=== PATIENT | female | born 1960 | race Caucasian/White ===

== ENCOUNTER → 2017-12-10 14:05 | Outpatient (CLI) | payer MEDICARE, SELFPAY ==
[2016-01-04 12:56] VITALS: BMI 24.3
[2017-12-10 15:45] LABS: Absolute Lymphocyte Count 0.84 X10^3/ul (0.83-4.51); Basophil# 0.03 X10^3/uL; Basophil% 0.7 % (0-1); Eosinophil# 0.27 X10^3/uL; Eosinophils% 6.3 % (0-5); Hematocrit 38.4 % (37-47); Lymphocyte # 0.84 X10^3/ul (4.0); Lymphocyte % 19.5 % (19-41); Mean Corp Hgb Conc 33.9 g/gl (32-36); Mean Corpuscular Hgb 30.8 pg (27.0-32.0); Mean Platelet Vol. 9.6 fl (6.2-12.0); Monocyte% 4.6 % (0-10); Neutrophil # 2.97 X10^3/uL (2.7-7.7); Neutrophil % 68.9 % (47-70); Platelet Count 260 K/mm3 (150-450); RBC Distribution Width CV 12.5 % (11.6-14.6); RBC Distribution Width SD 41.6 fl (35.1-43.9); Red Blood Count 4.22 M/mm3 (4.2-5.4); White Blood Count 4.3 K/mm3 (4.4-11.0)
[2017-12-10 15:52] LABS: POSITIVE COUNT NO; POSITIVE DIFFERENTIAL NO; POSITIVE MORPHOLOGY NO
[2017-12-10 16:05] LABS: ALB/GLOB Ratio 1.5 RATIO (0.9-2.4); AST(SGOT) 20 U/L (15-37); Alanine Aminotransfer ALT/SGPT 21 U/L (13-56); Albumin, Serum 4.3 g/dL (3.2-5.0); Alkaline Phosphatase 86 U/L (45-117); Anion Gap 8 (5-15); BUN 8 mg/dL (7-18); BUN/Creat Ratio 8.9 RATIO (10-20); Chloride 99 mmol/L (98-107); EST Glomerular Filtration Rate 69 mL/min (>60); Est Glom Filt Rate - Afr Amer 83 mL/min (>60); Globulin 2.9 g/dL (2.2-4.2); Glucose 96 mg/dL (74-106); Potassium 3.7 mmol/L (3.5-5.1); Protein, Total 7.2 g/dL (6.4-8.2); Sodium Level 134 mmol/L (136-145); Thyroid Stim Hormone (TSH) 1.65 uIU/mL (0.358-3.74)
== END ==
PROVIDERS: Family Provider Family Medicine Geriatric Medicine; PCP Family Medicine Geriatric Medicine; Visit Provider Family Medicine Geriatric Medicine
DX: I10 Essential (primary) hypertension (principal)
CPT/HCPCS: 36415; 80053; 84443; 85025

== ENCOUNTER → 2018-02-10 12:26 | Outpatient (CLI) | payer MEDICARE, MEDICAID, SELFPAY ==
[2016-01-04 12:56] VITALS: BMI 24.3
--- NOTE | 2018-02-10 12:31 | MRI_ITS ---
STUDY: MRI RIGHT HAND REASON FOR EXAM: Female, 57 years old. Mass, Soft Tissue- lump palm of hand base of thumb, fall 8 months ago landed on hand, f/u US TECHNIQUE: Standardized fat and water weighted pulse sequences were obtained in all 3 orthogonal planes with and without 8 mL of Gadavist intravenous contrast. COMPARISON: Ultrasound August 02, 2017 report only. FINDINGS: FIRST DIGIT: There is mild degenerative arthrosis of the metacarpophalangeal joint with osteophytes and subchondral cysts.. Normal interphalangeal joint. Normal proximal, and distal phalanges. Normal flexor and extensor tendons. There is no soft tissue abnormality. SECOND DIGIT: There is an erosion of the metacarpal head. Normal metacarpophalangeal joint. Normal proximal and distal interphalangeal joints. Normal proximal, middle and distal phalanges. Normal flexor and extensor tendons. There is no soft tissue abnormality. THIRD DIGIT: There are cysts/erosions of the metacarpal head. Normal metacarpophalangeal joint. Normal proximal and distal interphalangeal joints. Normal proximal, middle and distal phalanges. Normal flexor and extensor tendons. There is no soft tissue abnormality. FOURTH DIGIT: Normal visualized fourth metacarpus. Normal metacarpophalangeal joint. Normal proximal and distal interphalangeal joints. Normal middle and distal phalanges. Normal flexor and extensor tendons. There is no soft tissue abnormality. FIFTH DIGIT: Normal visualized fifth metacarpus. There is a tiny subchondral cyst and bone marrow edema of the base of the proximal phalanx. Normal proximal and distal interphalangeal joints. Normal proximal, middle and distal phalanges. Normal flexor and extensor tendons. There is no soft tissue abnormality. There is soft tissue edema of the thenar muscle. There is minimal adjacent bone marrow edema of the base of the first metacarpal. No mass or fluid collection is seen. There are multiple cysts, erosions or prominent vessels of the volar aspect of the scaphoid and capitate. There is bone marrow edema of the scaphoid. No definite fracture line or displaced fracture is seen. MRI/Upper Ext No Joint W/WO Cont IMPRESSION: There is soft tissue edema of the thenar muscle, nonspecific. No mass is demonstrated. There are multiple cysts/erosions. Consider an inflammatory arthritis such as rheumatoid arthritis. There is bone marrow edema of the scaphoid suggesting a bony contusion. Electronically Signed: Gladys Michel MD at 14:08 EDT , Service support ,
== END ==
PROVIDERS: Family Provider Family Medicine Geriatric Medicine; PCP Family Medicine Geriatric Medicine; Visit Provider Surgery
DX: R22.31 Localized swelling, mass and lump, right upper limb (principal)
CPT/HCPCS: 73220; A9585

== ENCOUNTER → 2018-03-11 13:40 | Outpatient (CLI) | payer MEDICARE, MEDICAID, SELFPAY ==
[2016-01-04 12:56] VITALS: BMI 24.3
[2018-03-11 17:50] LABS: ALB/GLOB Ratio 1.5 RATIO (0.9-2.4); AST(SGOT) 17 U/L (15-37); Alanine Aminotransfer ALT/SGPT 25 U/L (13-56); Albumin, Serum 4.4 g/dL (3.2-5.0); Alkaline Phosphatase 75 U/L (45-117); Anion Gap 7 (5-15); BUN 9 mg/dL (7-18); BUN/Creat Ratio 11.6 RATIO (10-20); Calcium,Total 9.1 mg/dL (8.5-10.1); Chloride 98 mmol/L (98-107); Creatinine, Serum 0.78 mg/dL (0.55-1.02); EST Glomerular Filtration Rate 81 mL/min (>60); Est Glom Filt Rate - Afr Amer 98 mL/min (>60); Glucose 75 mg/dL (74-106); Potassium 4.3 mmol/L (3.5-5.1); Protein, Total 7.4 g/dL (6.4-8.2); Sodium Level 133 mmol/L (136-145)
[2018-03-11 17:55] LABS: Absolute Lymphocyte Count 0.91 X10^3/ul (0.83-4.51); Absolute Neutrophil Count 3.2 X10^3/uL (2.0-7.7); Basophil# 0.03 X10^3/uL; Basophil% 0.7 % (0-1); Eosinophils% 4.3 % (0-5); Hematocrit 38.7 % (37-47); Hemoglobin 12.9 g/dl (12.0-15.0); Lymphocyte # 0.91 X10^3/ul (4.0); Lymphocyte % 19.8 % (19-41); Mean Corp Hgb Conc 33.3 g/gl (32-36); Mean Corpuscular Hgb 30.4 pg (27.0-32.0); Mean Corpuscular Volume 91.3 fL (81-99); Mean Platelet Vol. 9.5 fl (6.2-12.0); Monocyte# 0.29 X10^3/uL; Monocyte% 6.3 % (0-10); Neutrophil # 3.16 X10^3/uL (2.7-7.7); Neutrophil % 68.7 % (47-70); Platelet Count 258 K/mm3 (150-450); RBC Distribution Width CV 12.6 % (11.6-14.6); RBC Distribution Width SD 42.1 fl (35.1-43.9); Red Blood Count 4.24 M/mm3 (4.2-5.4); White Blood Count 4.6 K/mm3 (4.4-11.0)
[2018-03-11 18:15] LABS: POSITIVE COUNT NO; POSITIVE DIFFERENTIAL NO; POSITIVE MORPHOLOGY NO
[2018-03-13 15:43] LABS: Hep C Antibodies <0.1 s/co ratio (0.0-0.9)
== END ==
PROVIDERS: Family Provider Family Medicine Geriatric Medicine; PCP Family Medicine Geriatric Medicine; Visit Provider Family Medicine Geriatric Medicine
DX: I10 Essential (primary) hypertension (principal); Z13.89 Encounter for screening for other disorder
CPT/HCPCS: 36415; 80053; 84443; 85025; 86803

== ENCOUNTER → 2018-09-09 13:58 | Outpatient (CLI) | payer MEDICARE, MEDICAID, SELFPAY ==
[2016-01-04 12:56] VITALS: BMI 24.3
[2018-09-09 17:26] LABS: Absolute Lymphocyte Count 0.66 X10^3/ul (0.83-4.51); Absolute Neutrophil Count 3.1 X10^3/uL (2.0-7.7); Basophil# 0.06 X10^3/uL; Basophil% 1.4 % (0-1); Eosinophil# 0.14 X10^3/uL; Eosinophils% 3.3 % (0-5); Hematocrit 37.3 % (37-47); Hemoglobin 12.5 g/dl (12.0-15.0); Lymphocyte # 0.66 X10^3/ul (4.0); Lymphocyte % 15.8 % (19-41); Mean Corp Hgb Conc 33.5 g/gl (32-36); Mean Corpuscular Hgb 30.9 pg (27.0-32.0); Mean Corpuscular Volume 92.3 fL (81-99); Mean Platelet Vol. 9.6 fl (6.2-12.0); Monocyte# 0.26 X10^3/uL; Monocyte% 6.2 % (0-10); Neutrophil # 3.06 X10^3/uL (2.7-7.7); Neutrophil % 73.1 % (47-70); Platelet Count 279 K/mm3 (150-450); RBC Distribution Width CV 12.6 % (11.6-14.6); RBC Distribution Width SD 41.7 fl (35.1-43.9); Red Blood Count 4.04 M/mm3 (4.2-5.4); White Blood Count 4.2 K/mm3 (4.4-11.0)
[2018-09-09 17:32] LABS: POSITIVE COUNT NO; POSITIVE DIFFERENTIAL NO; POSITIVE MORPHOLOGY NO
[2018-09-09 17:49] LABS: ALB/GLOB Ratio 1.3 RATIO (0.9-2.4); AST(SGOT) 20 U/L (15-37); Alanine Aminotransfer ALT/SGPT 25 U/L (13-56); Alkaline Phosphatase 83 U/L (45-117); Anion Gap 12 (5-15); BUN 14 mg/dL (7-18); BUN/Creat Ratio 17.5 RATIO (10-20); Chloride 98 mmol/L (98-107); EST Glomerular Filtration Rate 78 mL/min (>60); Est Glom Filt Rate - Afr Amer 95 mL/min (>60); Glucose 73 mg/dL (74-106); Potassium 4.1 mmol/L (3.5-5.1); Sodium Level 135 mmol/L (136-145); Thyroid Stim Hormone (TSH) 1.67 uIU/mL (0.358-3.74)
[2018-09-09 17:50] LABS: Vitamin D,25 Hydroxy 16.4 ng/mL (29.95-100.01)
--- OUTSIDE RECORDS SUMMARY | 2018-11-11 19:26 | XMS RPT_ITS ---
:1960 Author Organization OHIP Care Team Providers Name Role Phone Alhaji, Tristan Chi Attending Unavailable Alhaji, Tristan Chi Primary Care Unavailable Geoffrey Anders Attending Unavailable Alhaji, Tristan Chi Referring Unavailable Alhaji, Tristan Chi Primary Care Unavailable Alhaji, Tristan Chi Attending Unavailable Alhaji, Tristan Chi Primary Care Unavailable Geoffrey Anders Attending Unavailable Alhaji, Tristan Chi Primary Care Unavailable Geoffrey Anders Referring Unavailable Alhaji, Tristan Chi Attending Unavailable Alhaji, Tristan Chi Primary Care Unavailable PROBLEMS PROBLEMS DATE TYPE CONDITION / CODE ATTENDING STATUS SOURCE 12/10/2017 Unknown I10 - Essential Alhaji, Tristan Chi Active [place] (primary) Community hypertension / Hospital I10(ICD-10) Repository 10/24/2017 Unknown L72.9 - Follicular Geoffrey Anders Active [place] cyst of the skin Community and subcutaneous Hospital tissue, Repository unspecified / L72.9(ICD-10) PROCEDURES PROCEDURES No Procedure Records FoundRESULTS RESULTS CBC W/DIFF, AUTOMATED Collected: 09/09/2018 Status: F Source: [facility] 2:[facility] TYPE CODE TESTS RESULT OUT OF RANGE REFERENCE UNITS LAB L100.1000 4.4-11.0 K/mm3 Low WBC 4.2 LAB L100.1200 4.2-5.4 M/mm3 Low RBC 4.04 LAB L100.1300 12.0-15.0 g/dl Normal HGB 12.5 LAB L100.1400 37-47 % Normal HCT 37.3 LAB L100.1500 81-99 fL Normal MCV 92.3 LAB L100.1600 27.0-32.0 pg Normal MCH 30.9 LAB L100.1700 32-36 g/gl Normal MCHC 33.5 LAB L100.1810 11.6-14.6 % Normal RDW CV 12.6 LAB L100.1820 35.1-43.9 fl Normal RDW SD 41.7 LAB L100.1900 150-450 K/mm3 Normal PLT 279 LAB L100.2000 6.2-12.0 fl Normal MPV 9.6 LAB L100.2100 47-70 % High NEUT% 73.1 LAB L100.2200 19-41 % Low LY% 15.8 LAB L100.2300 0-10 % Normal MONO% 6.2 LAB L100.2400 0-5 % Normal EO% 3.3 LAB L100.2500 0-1 % High BASO% 1.4 LAB L100.2550 0.0-0.9 % Normal IM GRAN % 0.200 Result Comment: IG% - Immature Granulocytes (promyelocytes, myelocytes and metamyelocytes) > 1% indicates that a LEFT SHIFT is Present. LAB L100.2620 2.0-7.7 X10 3/uL Normal Absolute Neut 3.1 LAB L100.2720 0.83-4.51 X10 3/ul Low Absolute Lymph 0.66 Performed By: #### L100.0100 #### [facility] [address] [place], [place], [address] COMPREHENSIVE METABOLIC Collected: 09/09/2018 Status: F Source: [place] 2:04 PM [facility] REPOSITORY TYPE CODE TESTS RESULT OUT OF RANGE REFERENCE UNITS LAB L501.0100 74-106 mg/dL Low GLU 73 Result Comment: Please note revised GLUCOSE reference range effective 2017. LAB L501.1000 7-18 mg/dL Normal BUN 14 LAB L501.1100 0.55-1.02 mg/dL Normal CREAT,SERUM 0.80 Result Comment: The validity of the calculated GFR AND GFRAA in patients over 70 years has not been determined. Clinical correlation is essential. LAB L501.1110 >60 mL/min Normal EST GFR 78 Result Comment: Non- GFR Calc LAB L501.1115 >60 mL/min Normal EST GFR - AA 95 Result Comment: GFR Calc LAB L501.1300 10-20 RATIO Normal BUN/CRE 17.5 LAB L501.1500 6.4-8.2 g/dL T Normal PROT 7.0 LAB L501.1800 3.2-5.0 g/dL Normal ALB 4.0 LAB L501.1950 2.2-4.2 g/dL Normal GLOB 3.0 LAB L501.2000 0.9-2.4 RATIO Normal A/G 1.3 LAB L501.2200 8.5-10.1 mg/dL CA Normal 9.0 LAB L501.4100 15-37 U/L Normal AST 20 LAB L501.4305 45-117 U/L Normal ALK P 83 LAB L501.4405 13-56 U/L Normal ALT 25 LAB L501.4600 0.20-1.00 mg/dL T Normal BILI 0.40 LAB L501.5300 136-145 mmol/L Low NA 135 LAB L501.5600 3.5-5.1 mmol/L K Normal 4.1 LAB L501.5900 98-107 mmol/L CL Normal 98 LAB L501.6100 21.0-32.0 mmol/L Normal CO2 25.0 LAB L501.6200 5-15 Normal GAP 12 Performed By: #### L500.4050, L501.9520 #### [facility] [address] [place], [place], [id number] THYROID STIM HORMONE Collected: 09/09/2018 Status: F Source: [place]ESSICA (TSH) 2:04 PM [facility] REPOSITORY TYPE CODE TESTS RESULT OUT OF RANGE REFERENCE UNITS LAB L501.9520 0.358-3.74 uIU/mL Normal TSH 1.67 Performed By: #### L500.4050, L501.9520 #### [facility] [address] [place], [place], [id number] VITAMIN D,25 HYDROXY Collected: 09/09/2018 Status: F Source: [place] 2:04 PM [facility] REPOSITORY TYPE CODE TESTS RESULT OUT OF REFERENCE UNITS RANGE LAB L506.1000 29.95-100.01 ng/mL Low Vitamin D 16.4 25-OH Result Comment: Vitamin D 25(OH) Status Range Deficiency <20 ng/mL (50nmol/L) Insuffciency 20 - 30 ng/mL (50 - 75 nmol/L) Sufficiency 30 - 100 ng/mL (75 - 250 nmol/L) Toxicity >100 ng/mL (>250 nmol/L) Performed By: #### L506.1000 #### [facility] [address] [place], [place], [address] COMPREHENSIVE METABOLIC Collected: 03/11/2018 Status: F Source: [place] [facility] 1:41 PM [facility] REPOSITORY TYPE CODE TESTS RESULT OUT OF RANGE REFERENCE UNITS LAB L501.0100 74-106 mg/dL Normal GLU 75 Result Comment: Please note revised GLUCOSE reference range effective 2017. LAB L501.1000 7-18 mg/dL Normal BUN 9 LAB L501.1100 0.55-1.02 mg/dL Normal CREAT,SERUM 0.78 Result Comment: The validity of the calculated GFR AND GFRAA in patients over 70 years has not been determined. Clinical correlation is essential. LAB L501.1110 >60 mL/min Normal EST GFR 81 Result Comment: Non- GFR Calc LAB L501.1115 >60 mL/min Normal EST GFR - AA 98 Result Comment: GFR Calc LAB L501.1300 10-20 RATIO Normal BUN/CRE 11.6 LAB L501.1500 6.4-8.2 g/dL T Normal PROT 7.4 LAB L501.1800 3.2-5.0 g/dL Normal ALB 4.4 LAB L501.1950 2.2-4.2 g/dL Normal GLOB 3.0 LAB L501.2000 0.9-2.4 RATIO Normal A/G 1.5 LAB L501.2200 8.5-10.1 mg/dL CA Normal 9.1 LAB L501.4100 15-37 U/L Normal AST 17 LAB L501.4305 45-117 U/L Normal ALK P 75 LAB L501.4405 13-56 U/L Normal ALT 25 LAB L501.4600 0.20-1.00 mg/dL T Normal BILI 0.30 LAB L501.5300 136-145 mmol/L Low NA 133 LAB L501.5600 3.5-5.1 mmol/L K Normal 4.3 LAB L501.5900 98-107 mmol/L CL Normal 98 LAB L501.6100 21.0-32.0 mmol/L Normal CO2 28.0 LAB L501.6200 5-15 Normal GAP 7 Performed By: #### L500.4050, L501.9520 #### [facility] [address] [place], [place], [address] THYROID STIM HORMONE Collected: 03/11/2018 Status: F Source: [place] (TSH) 1:41 PM [facility] REPOSITORY TYPE CODE TESTS RESULT OUT OF RANGE REFERENCE UNITS LAB L501.9520 0.358-3.74 uIU/mL Normal TSH 1.50 Performed By: #### L500.4050, L501.9520 #### [facility] [address] [place], [place], [address] CBC W/DIFF, AUTOMATED Collected: 03/11/2018 Status: F Source: [place] 1:41 PM [facility] REPOSITORY TYPE CODE TESTS RESULT OUT OF RANGE REFERENCE UNITS LAB L100.1000 4.4-11.0 K/mm3 Normal WBC 4.6 LAB L100.1200 4.2-5.4 M/mm3 Normal RBC 4.24 LAB L100.1300 12.0-15.0 g/dl Normal HGB 12.9 LAB L100.1400 37-47 % Normal HCT 38.7 LAB L100.1500 81-99 fL Normal MCV 91.3 LAB L100.1600 27.0-32.0 pg Normal MCH 30.4 LAB L100.1700 32-36 g/gl Normal MCHC 33.3 LAB L100.1810 11.6-14.6 % Normal RDW CV 12.6 LAB L100.1820 35.1-43.9 fl Normal RDW SD 42.1 LAB L100.1900 150-450 K/mm3 Normal PLT 258 LAB L100.2000 6.2-12.0 fl Normal MPV 9.5 LAB L100.2100 47-70 % Normal NEUT% 68.7 LAB L100.2200 19-41 % Normal LY% 19.8 LAB L100.2300 0-10 % Normal MONO% 6.3 LAB L100.2400 0-5 % Normal EO% 4.3 LAB L100.2500 0-1 % Normal BASO% 0.7 LAB L100.2550 0.0-0.9 % Normal IM GRAN % 0.200 Result Comment: IG% - Immature Granulocytes (promyelocytes, myelocytes and metamyelocytes) > 1% indicates that a LEFT SHIFT is Present. LAB L100.2620 2.0-7.7 X10 3/uL Normal Absolute Neut 3.2 LAB L100.2720 0.83-4.51 X10 3/ul Normal Absolute Lymph 0.91 Performed By: #### L100.0100 #### [facility] [address] [place] [address]. [place], [place], [id number] HEPATITIS C ANTIBODIES Collected: 03/11/2018 Status: F Source: [place] 1:41 PM [facility] REPOSITORY TYPE CODE TESTS RESULT OUT OF RANGE REFERENCE UNITS LAB L3100.0650 0.0-0.9 s/co ratio Normal HEP C AB <0.1 Result Comment: Negative: < 0.8 Indeterminate: 0.8 - 0.9 Positive: > 0.9 The CDC recommends that a positive HCV antibody result be followed up with a HCV Nucleic Acid Amplification test (700670). Performed at: - [facility] [id number] Cheese Processor: Juan Ramon Barrientos PhD, Phone: [phone] Performed By: #### L3100.0625 #### [facility] (refer to report for specific site) refer to report for address and phone number UPPER EXT NO JOINT Observed: 02/10/2018 Status: F Source: [place] W/WO CONT 12:31 PM [facility] REPOSITORY [facility] Imaging Services [address] [place] [address] Upper Ext No Joint W/WO Cont MR#: [id number] Acct: [id number] Name: PALAKPREMA E Rep #: [id number] : 1960 F 57 From: Gladys Michel MD PCP: Alhaji RODRIGUEZ,SumUp Status: REG CLI Study: Upper Ext No Joint W/WO Cont Date of Exam: 02/10/18 Exam# [id number] Ordering Dr: Geoffrey Anders MD STUDY: MRI RIGHT HAND REASON FOR EXAM: Female, 57 years old. Mass, Soft Tissue- lump palm of hand base of thumb, fall 8 months ago landed on hand, f/u US TECHNIQUE: Standardized fat and water weighted pulse sequences were obtained in all 3 orthogonal planes with and without 8 mL of Gadavist intravenous contrast. COMPARISON: Ultrasound August 02, 2017 report only. FINDINGS: FIRST DIGIT: There is mild degenerative arthrosis of the metacarpophalangeal joint with osteophytes and subchondral cysts.. Normal interphalangeal joint. Normal proximal, and distal phalanges. Normal flexor and extensor tendons. There is no soft tissue abnormality. SECOND DIGIT: There is an erosion of the metacarpal head. Normal metacarpophalangeal joint. Normal proximal and distal interphalangeal joints. Normal proximal, middle and distal phalanges. Normal flexor and extensor tendons. There is no soft tissue abnormality. THIRD DIGIT: There are cysts/erosions of the metacarpal head. Normal metacarpophalangeal joint. Normal proximal and distal interphalangeal joints. Normal proximal, middle and distal phalanges. Normal flexor and extensor tendons. There is no soft tissue abnormality. FOURTH DIGIT: Normal visualized fourth metacarpus. Normal metacarpophalangeal joint. Normal proximal and distal interphalangeal joints. Normal middle and distal phalanges. Normal flexor and extensor tendons. There is no soft tissue abnormality. FIFTH DIGIT: Normal visualized fifth metacarpus. There is a tiny subchondral cyst and bone marrow edema of the base of the proximal phalanx. Normal proximal and distal interphalangeal joints. Normal proximal, middle and distal phalanges. Normal flexor and extensor tendons. There is no soft tissue abnormality. There is soft tissue edema of the thenar muscle. There is minimal adjacent bone marrow edema of the base of the first metacarpal. No mass or fluid collection is seen. There are multiple cysts, erosions or prominent vessels of the volar aspect of the scaphoid and capitate. There is bone marrow edema of the scaphoid. No definite fracture line or displaced fracture is seen. MRI/Upper Ext No Joint W/WO Cont IMPRESSION: There is soft tissue edema of the thenar muscle, nonspecific. No mass is demonstrated. There are multiple cysts/erosions. Consider an inflammatory arthritis such as rheumatoid arthritis. There is bone marrow edema of the scaphoid suggesting a bony contusion. Electronically Signed: Gladys Michel MD at 14:08 EDT , Service support , CC: Geoffrey Anders MD; Tristan Mane MD Sleep Tech: Signed PLASTIC SURGERY Observed: 01/30/2018 Status: F Source: [place] VISIT REPORT 1:16 PM [facility] REPOSITORY [facility] [address] [place] [address] OFFICE VISIT Date of Service: 10/24/17 MR#: [id number] Acct: [id number] Name: PREMA CID Rep #: [id number] : 1960 Provider: Geoffrey Anders MD Age/Sex: 56/F Location: [facility] Status: Signed Intake Vital Signs10/24/17 Height 5 ft 10 in 10/24/17 Weight: 169 lb 6 oz Intake Visit Reasons: evaluation soft tissue mass right palm 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 Accompanied by: None Is patient in pain?: Yes (HAND IS NUMB AND TINGLING - SHE FELL IN JULY 2017) Pain scale (1-10): 5 Allergies Sulfa (Sulfonamide Antibiotics) Allergy (Verified 10/24/17 13:54) Hives Medications Lamotrigine [Lamictal] 200 mg PO QHS 02/20/14 [History Confirmed 10/24/17] Loratadine [Claritin] 10 mg PO QHS 02/20/14 [History Confirmed 10/24/17] Losartan/Hydrochlorothiazide [Hyzaar 50-12.5 Tablet] 0.5 tab PO QHS 02/20/14 [History Confirmed 10/24/17] Quetiapine Fumarate [Seroquel] 200 mg PO QHS 02/20/14 [History Confirmed 10/24/17] Sertraline HCl [Zoloft] 100 mg PO DAILY 02/20/14 [History Confirmed 10/24/17] Is last menstrual period known: No Post menopausal: Yes Patient : No PFSH Medical History Bipolar disorder (Acute) Bone fracture (Acute) CPAP/BiPAP (continuous or biphasic positive airway pressure) dependent (Acute) High cholesterol (Acute) History of emotional problems (Acute) Psychiatric care (Acute) Seasonal allergies (Acute) Vision problems (Acute) High blood pressure (Chronic) Surgical History History of hysterectomy (Acute) Family History Mother Hypertension Father Hypertension Pancreatic cancer Shingles Social History Smoking Status: Never smoker alcohol intake: current substance use type: does not use HPI evaluation soft tissue mass right palm: Details: HISTORY OF PRESENT ILLNESS 57 year old woman presents with a soft tissue mass right palm at edge of the thenar eminence that she sustained after falling on her hand back in July. An Ultrasound was done on 08/02/17 which showed a hypoechoic lesion. She states she has some slight paresthesias involving the index finger and thumb of right hand. She is left hand dominant. She denies any fever. She denies any drainage. She denies any trouble with activities of daily living. There is occasional discomfort when it is bumped. She presents at this time for further evaluation and treatment. REVIEW OF SYSTEMS General - Denies fever, fatigue, and weight loss. Eyes - Denies cataracts and glaucoma. ENT - Denies nasal congestion and sore throat. Endocrine - Denies excessive thirst and urination. Skin - Denies skin cancer. Has soft tissue mass right palm at edge of thenar eminence. Musculoskeletal - Denies joint pain, joint stiffness, back pain, and arthritis. Has some weakness of muscles and joints. Neuro - Denies headaches. Cardiovascular - Denies chest pain, fatigue, and shortness of breath with exertion. Psych - Denies anxiety. Has depression. Respiratory - Denies chronic cough and shortness of breath. Has sleep apnea. Gastrointestinal - Denies nausea, vomiting, diarrhea, and constipation. Hematologic - Denies abnormal bruising and bleeding. Genitourinary - Denies hematuria and urinary frequency. PHYSICAL EXAM General - Alert and Oriented HEENT - PERRL. EOMI. Throat is clear. Neck - Supple and nontender. No cervical adenopathy. Lungs - Clear to auscultation. Heart - Regular rate and rhythm. Abdomen - Soft and nondistended. Extremities - FROM. No axillary adenopathy. Radial pulses are palpable. On the right palm at the edge of the thenar eminence is a palpable mass. It is mobile. Measures 5 mm. No evidence of infection. Slight discomfort with palpation. No ulceration. Patient is left hand dominant. Slight decrease to pinprick to right index finger and right thumb. Positive Tinel's at the right elbow. Negative at right wrist. Phalen's test is negative. Stephen's test is negative. Neuro - CN II-XII grossly intact. Psych - Normal mood and affect. ASSESSMENT 5 mm painful soft tissue mass right palm at edge of thenar eminence. PLAN This could represent a small traumatic hematoma from her accident. Will observe at this time. No evidence of infection. It should continue to resolve. If symptoms persist or worsen, then operative intervention would be necessary. At that point, would leave the wound open and pack the wound with Silver dressing changes daily. Would benefit from an MRI to look at the extent of the mass. If the MRI is not approved, then can repeat the Ultrasound. Massage her right palm with skin lotion daily to help soften up the scar. Encourage an WESTLEY wrap for compression when active. Followup after her studies are completed to discuss the results and to discuss possible surgery recommendations. She may need NCV and EMG as well. Assessment AND Plan Problems 1. Localized swelling on right hand R22.31 Orders Orders: Coding Level of Care Code Off vis,new,level 4 Diagnoses Localized swelling on right hand R22.31 01/30/18 1316 <Electronically signed by Geoffrey Anders MD> Date Geoffrey Anders MD Cosigner Signature: Date (if applicable) CC: Tristan Mane MD CBC W/DIFF, AUTOMATED Collected: 12/10/2017 Status: F Source: [place] 2:34 PM [facility] REPOSITORY TYPE CODE TESTS RESULT OUT OF RANGE REFERENCE UNITS LAB L100.1000 4.4-11.0 K/mm3 Low WBC 4.3 LAB L100.1200 4.2-5.4 M/mm3 Normal RBC 4.22 LAB L100.1300 12.0-15.0 g/dl Normal HGB 13.0 LAB L100.1400 37-47 % Normal HCT 38.4 LAB L100.1500 81-99 fL Normal MCV 91.0 LAB L100.1600 27.0-32.0 pg Normal MCH 30.8 LAB L100.1700 32-36 g/gl Normal MCHC 33.9 LAB L100.1810 11.6-14.6 % Normal RDW CV 12.5 LAB L100.1820 35.1-43.9 fl Normal RDW SD 41.6 LAB L100.1900 150-450 K/mm3 Normal PLT 260 LAB L100.2000 6.2-12.0 fl Normal MPV 9.6 LAB L100.2100 47-70 % Normal NEUT% 68.9 LAB L100.2200 19-41 % Normal LY% 19.5 LAB L100.2300 0-10 % Normal MONO% 4.6 LAB L100.2400 0-5 % High EO% 6.3 LAB L100.2500 0-1 % Normal BASO% 0.7 LAB L100.2550 0.0-0.9 % Normal IM GRAN % 0.000 Result Comment: IG% - Immature Granulocytes (promyelocytes, myelocytes and metamyelocytes) > 1% indicates that a LEFT SHIFT is Present. LAB L100.2620 2.0-7.7 X10 3/uL Normal Absolute Neut 3.0 LAB L100.2720 0.83-4.51 X10 3/ul Normal Absolute Lymph 0.84 Performed By: #### L100.0100 #### [facility] [address] [place], [place], [id number] COMPREHENSIVE METABOLIC Collected: 12/10/2017 Status: F Source: [place] PROFIL 2:34 PM [facility] REPOSITORY TYPE CODE TESTS RESULT OUT OF RANGE REFERENCE UNITS LAB L501.0100 74-106 mg/dL Normal GLU 96 Result Comment: Please note revised GLUCOSE reference range effective 2017. LAB L501.1000 7-18 mg/dL Normal BUN 8 LAB L501.1100 0.55-1.02 mg/dL Normal CREAT,SERUM 0.90 Result Comment: The validity of the calculated GFR AND GFRAA in patients over 70 years has not been determined. Clinical correlation is essential. LAB L501.1110 >60 mL/min Normal EST GFR 69 Result Comment: Non- GFR Calc LAB L501.1115 >60 mL/min Normal EST GFR - AA 83 Result Comment: GFR Calc LAB L501.1300 10-20 RATIO Low BUN/CRE 8.9 LAB L501.1500 6.4-8.2 g/dL Normal T PROT 7.2 LAB L501.1800 3.2-5.0 g/dL Normal ALB 4.3 LAB L501.1950 2.2-4.2 g/dL Normal GLOB 2.9 LAB L501.2000 0.9-2.4 RATIO Normal A/G 1.5 LAB L501.2200 8.5-10.1 mg/dL Normal CA 9.0 LAB L501.4100 15-37 U/L Normal AST 20 LAB L501.4305 45-117 U/L Normal ALK P 86 LAB L501.4405 13-56 U/L Normal ALT 21 LAB L501.4600 0.20-1.00 mg/dL Normal T BILI 0.40 LAB L501.5300 136-145 mmol/L Low NA 134 LAB L501.5600 3.5-5.1 mmol/L Normal K 3.7 LAB L501.5900 98-107 mmol/L Normal CL 99 LAB L501.6100 21.0-32.0 mmol/L Normal CO2 27.0 LAB L501.6200 5-15 Normal GAP 8 Performed By: #### L500.4050, L501.9520 #### [facility] [address] [place], [place], [address] THYROID STIM HORMONE Collected: 12/10/2017 Status: F Source: [place]ESS[place] (TSH) 2:34 PM [facility] REPOSITORY TYPE CODE TESTS RESULT OUT OF RANGE REFERENCE UNITS LAB L501.9520 0.358-3.74 uIU/mL Normal TSH 1.65 Performed By: #### L500.4050, L501.9520 #### [facility] [address] [place], [address] ALLERGIES ALLERGIES DATE TYPE / CODE NAME / CODE REACTION SEVERITY SOURCE 10/24/2017 Drug Sulfa Hives Unknown [facility] Allergy/4160 (Sulfonamide Hospital 43406(SNOMED Antibiotics)/ Repository CT) [id number](RX NORM) ENCOUNTERS ENCOUNTERS ADMIT/DISCHARGE ACCOUNT ADMITTING ENCOUNTER LOCATION SOURCE NUMBER CLASS 09/09/2018 [id number] Ambulatory [place] 3 [facility] ing:POLAB3 Repository 03/11/2018 [id number] Ambulatory Jessica Jessica 4 [facility] ing:POLAB3 Repository 02/10/2018 [id number] Ambulatory Jessica Jessica 0 [facility] ing:MRI Repository 12/10/2017 [id number] Ambulatory [place] Jessica 3 [facility] ing:POLAB3 Repository 10/24/2017/ [id number] Ambulatory BMSBuilding:Meghann Lopez 8 8 MS.S [facility] [place] [place] Repository PAYERS PAYERS ENCOUNTER GUARANTOR PAYER SUBSCRIBER SOURCE 09/09/2018 Prema Cid219 Primary Prema E [place] E [place] Insurance:MEDICARE [place]OB: [place], [place] PART A [facility] [id number] Hospital [address]Bvr: (330) Number: Repository [phone] ) [id number] Date:2018-09-09 09/09/2018 Secondary Prema E Jessica Insurance:MEDICAIDPol [place]DOB: [facility] Number: [id number] Hospital [id number] Repository Date:2018-09-09 09/09/2018 Tertiary NOT GIVENUNK Jessica Insurance:SELF PAY [facility] Number: Effective Repository Date:2018-09-09 03/11/2018 Prema E [id number] Primary Prema E [place] E [address] Insurance:MEDICARE [place]: [place] PART A [facility] [id number] Hospital [address]Dtg: (330) Number: Repository [phone] () [id number] Date:2018-03-11 03/11/2018 Secondary Prema E [place] Insurance:MEDICAIDPol [place]DOB: [facility] icy Number: [id number] Hospital [id number] Repository Date:2018-03-11 03/11/2018 Tertiary NOT GIVENUNK Jessica Insurance:SELF PAY [facility] Number: Effective Repository Date:2018-03-11 02/10/2018 Prema E [id number] Primary Prema E Jessica E Cervantes Insurance:MEDICARE [place]OB: [place] PART A [facility] [id number] Hospital [address]Zde: (330) Number: Repository [phone] () [id number] Date:2018-01-30 02/10/2018 Secondary Prema E Jessica Insurance:MEDICAIDPol [place]DOB: [facility] ic Number: [id number] Hospital [id number] Repository Date:2018-01-30 02/10/2018 Tertiary NOT GIVENUNK [place] Insurance:SELF PAY [facility] Number: Effective Repository Date:2018-01-30 12/10/2017 Prema E [id number] Primary Prema E Jessica E Cervantes Insurance:MEDICARE [place]OB: [place] PART A [facility] [id number] Hospital [address]Kvq: (330) Number: Repository [phone] () [id number] Date:2017-09-09 12/10/2017 Secondary NOT GIVENUNK Jessica Insurance:SELF PAY [facility] Number: Effective Repository Date:2017-09-09 10/24/2017 Prema E [id number] Primary Prema E [place] E Cervantes Insurance:MEDICARE [place]OB: [place] PART A [facility] [id number] Hospital [address]Uyb: (330) Number: Repository [phone] () [id number] Date:2017-08-14 10/24/2017 Secondary Prema E [place] Insurance[facility]ICAIDPol [facility] icy Number: [id number] Hospital [id number] Repository Date:2017-08-14 10/24/2017 Tertiary NOT GIVENUNK [place] Insurance:SELF PAY [facility]: Effective Repository Date:2017-08-14
== END ==
PROVIDERS: Family Provider Family Medicine Geriatric Medicine; PCP Family Medicine Geriatric Medicine; Visit Provider Family Medicine Geriatric Medicine
DX: I10 Essential (primary) hypertension (principal); E55.9 Vitamin D deficiency, unspecified
CPT/HCPCS: 36415; 80053; 82306; 84443; 85025

== ENCOUNTER 2018-09-19 15:07 | Emergency (ER) | payer MEDICARE, MEDICAID, SELFPAY ==
[2016-01-04 12:56] VITALS: BMI 24.3
[2018-09-19 15:08] VITALS: BP 140/90; PULSE 118; RESP 16; TEMP 37.1; O2SAT 96; BMI 24.5
--- NOTE | 2018-09-19 15:18 | CT_ITS ---
STUDY: CT BRAIN WITHOUT CONTRAST REASON FOR EXAM: Female, 57 years old. Fall, laceration above right eye. No loss of consciousness. RADIATION DOSAGE (If Supplied By Facility): CTDIvol = ( 44.99 ) mGy, DLP = ( 796.11 ) mGycm TECHNIQUE: Transaxial CT imaging of the brain was performed without administration of intravenous contrast material. Individualized dose optimization techniques were used for this CT. COMPARISON: Contrast CT brain November 12, 2014. FINDINGS: There is laceration and mild soft tissue swelling in the low right frontal scalp/right brow. Normal calvarium. Normal size ventricles and extra-axial spaces for the patient's age. Normal white matter tracts of the cerebral hemispheres. Normal basal ganglia and thalami. Normal brainstem. Normal cerebellum. Mild atherosclerotic calcifications of the cavernous segments of the bilateral internal carotid arteries. There is no intracranial hemorrhage. There are no findings of an acute ischemic infarction. Normal visualized paranasal sinuses. CT/Brain/Head without Contrast IMPRESSION: Laceration and mild soft tissue swelling of the low right frontal scalp/right brow. No acute intracranial injury. Electronically Signed: Jason Arriola MD at 15:39 EST , Service support ,
[2018-09-19] MEDS: Lidocaine/Epi/Tetracaine 50 ML 1 APPLIC TOPICAL (15:28)
[2018-09-19] MEDS: Diphth,Pertuss(Acell),Tet Vac 0.5 ML Vial IM (15:33)
--- NOTE | 2018-09-19 16:12 | ED.DCSUM_ITS ---
- ER Visit Summary Date of Service: 09/19/18 Chief Complaint: Fall, head injury, facial laceration History of Present Illness: The patient is a 57 F brought by [facility] fall outside prior to arrival. States walking across the road over snow slipped hitting her head on asphalt. No LOC. Pain around the wound. Tetanus unknown. No anticoagulation medicines. No neck or back pain. Bleeding controlled. No other complaints. Physical Examination: General: Alert and oriented ?3, no acute distress HEENT: Normocephalic, 3 cm superficial laceration horizontally across mid forehead, no active bleeding. No hemotympanum. Moist mucosa membranes Neck: supple, nontender. Cardiovascular: Regular rate and rhythm, no murmurs Respiratory: Normal breath sounds, symmetric, no distress Abdomen: Soft, nontender, nondistended Extremities: Nontender, no edema, pulses intact ?4 Neuro: no focal neurological deficits. Current nerves II through XII intact. GCS is 15. Test Results: CT head: No acute process soft tissue swelling and injury. Emergency Department Course and Treatment: Patient wound noted to have a ridge for direct injury. Superficial laceration. Concerns of mechanism, CT head obtained results with no intracranial process. Tetanus updated. Laceration repaired total 4, 5-0 simple sutures. Head injury precautions. Follow-up in 5 days for suture removal. Treatment Plan: [] Disposition: Discharge Impression: 1. Closed head injury 2. Facial laceration status post repair 3. Tetanus update This note was generated with [employer] dictation software. It may contain incorrect words, spelling, and punctuation that were not noted in review of the chart prior to signing ED Disposition - Plan for ED Patient: Disposition: Home or Assisted Living Diagnosis: Facial laceration, Closed head injury Instructions: ED Laceration Facial Sutr Tape, ED Head Injury Closed Referrals: Tristan Mane Chi, MD [Primary Care Provider] - 5 Days for suture removal
[2018-09-19 16:15] VITALS: BP 146/82; PULSE 79; RESP 16; O2SAT 98
== END 2018-09-19 16:17 | disposition home or self-care (01) ==
PROVIDERS: Emergency Provider Emergency Medicine; Family Provider Family Medicine Geriatric Medicine; PCP Family Medicine Geriatric Medicine
DX: S01.81XA Laceration without foreign body of other part of head, initial encounter (principal); S09.90XA Unspecified injury of head, initial encounter; W00.0XXA Fall on same level due to ice and snow, initial encounter; Y93.01 Activity, walking, marching and hiking; Y92.413 State road as the place of occurrence of the external cause; Y99.8 Other external cause status; Z23 Encounter for immunization
CPT/HCPCS: 12013; 70450; 90471; 90715; 99283

== ENCOUNTER → 2019-03-16 10:59 | Outpatient (CLI) | payer MEDICARE, MEDICAID, SELFPAY ==
[2016-01-04 12:56] VITALS: BMI 24.3
[2019-03-16 17:27] LABS: Absolute Lymphocyte Count 1.02 X10^3/uL (0.83-4.51); Absolute Neutrophil Count 3.1 X10^3/uL (2.0-7.7); Basophil# 0.04 X10^3/uL; Basophil% 0.9 % (0-1); Eosinophil# 0.16 X10^3/uL; Eosinophils% 3.5 % (0-5); Hematocrit 36.2 % (37-47); Hemoglobin 12.7 g/dL (12.0-15.0); Lymphocyte # 1.02 X10^3/ul (4.0); Lymphocyte % 22.3 % (19-41); Mean Corp Hgb Conc 35.1 g/dL (32-36); Mean Corpuscular Hgb 31.5 pg (27.0-32.0); Mean Corpuscular Volume 89.8 fL (81-99); Mean Platelet Vol. 9.5 fl (6.2-12.0); Monocyte# 0.29 X10^3/uL; Monocyte% 6.3 % (0-10); NRBC Flagged by Analyzer 0 % (0-5); Neutrophil # 3.05 X10^3/uL (2.7-7.7); Neutrophil % 66.6 % (47-70); Platelet Count 255 K/mm3 (150-450); RBC Distribution Width CV 12.2 % (11.6-14.6); RBC Distribution Width SD 40.6 fl (35.1-43.9); Red Blood Count 4.03 M/mm3 (4.2-5.4); White Blood Count 4.6 K/mm3 (4.4-11.0)
[2019-03-16 17:45] LABS: ALB/GLOB Ratio 1.3 RATIO (0.9-2.4); AST(SGOT) 19 U/L (15-37); Alanine Aminotransfer ALT/SGPT 23 U/L (13-56); Alkaline Phosphatase 80 U/L (45-117); Anion Gap 12 (5-15); BUN 10 mg/dL (7-18); BUN/Creat Ratio 13.2 RATIO (10-20); Calcium,Total 8.9 mg/dL (8.5-10.1); Chloride 102 mmol/L (98-107); Creatinine, Serum 0.76 mg/dL (0.55-1.02); EST Glomerular Filtration Rate 83 mL/min (>60); Est Glom Filt Rate - Afr Amer 101 mL/min (>60); Glucose 80 mg/dL (74-106); Potassium 3.7 mmol/L (3.5-5.1); Sodium Level 136 mmol/L (136-145); Thyroid Stim Hormone (TSH) 1.52 uIU/mL (0.358-3.74)
== END ==
PROVIDERS: Family Provider Family Medicine Geriatric Medicine; PCP Family Medicine Geriatric Medicine; Visit Provider Family Medicine Geriatric Medicine
DX: I10 Essential (primary) hypertension (principal)
CPT/HCPCS: 36415; 80053; 84443; 85025

== ENCOUNTER → 2019-09-14 | Outpatient (CLI) | payer MEDICARE, MEDICAID, SELFPAY ==
[2016-01-04 12:56] VITALS: BMI 24.3
[2019-09-14 17:29] LABS: Absolute Lymphocyte Count 0.69 X10^3/uL (0.83-4.51); Absolute Neutrophil Count 3.2 X10^3/uL (2.0-7.7); Basophil# 0.05 X10^3/uL; Basophil% 1.1 % (0-1); Eosinophil# 0.23 X10^3/uL; Hematocrit 38.4 % (37-47); Hemoglobin 12.9 g/dL (12.0-15.0); Lymphocyte # 0.69 X10^3/ul (4.0); Lymphocyte % 15.1 % (19-41); Mean Corp Hgb Conc 33.6 g/dL (32-36); Mean Corpuscular Hgb 30.9 pg (27.0-32.0); Mean Corpuscular Volume 91.9 fL (81-99); Mean Platelet Vol. 9.7 fl (6.2-12.0); Monocyte# 0.36 X10^3/uL; Monocyte% 7.9 % (0-10); NRBC Flagged by Analyzer 0 % (0-5); Neutrophil % 70.2 % (47-70); Platelet Count 245 K/mm3 (150-450); RBC Distribution Width CV 11.9 % (11.6-14.6); RBC Distribution Width SD 40.1 fl (35.1-43.9); Red Blood Count 4.18 M/mm3 (4.2-5.4); White Blood Count 4.6 K/mm3 (4.4-11.0)
[2019-09-14 17:54] LABS: ALB/GLOB Ratio 1.4 RATIO (0.9-2.4); AST(SGOT) 32 U/L (15-37); Alanine Aminotransfer ALT/SGPT 66 U/L (13-56); Albumin, Serum 4.3 g/dL (3.2-5.0); Alkaline Phosphatase 86 U/L (45-117); Anion Gap 9 (5-15); BUN 13 mg/dL (7-18); BUN/Creat Ratio 12.7 RATIO (10-20); Calcium,Total 9.1 mg/dL (8.5-10.1); Chloride 103 mmol/L (98-107); Creatinine, Serum 1.02 mg/dL (0.55-1.02); EST Glomerular Filtration Rate 59 mL/min (>60); Est Glom Filt Rate - Afr Amer 71 mL/min (>60); Globulin 3.1 g/dL (2.2-4.2); Glucose 79 mg/dL (74-106); Potassium 4.2 mmol/L (3.5-5.1); Protein, Total 7.4 g/dL (6.4-8.2); Sodium Level 135 mmol/L (136-145); Thyroid Stim Hormone (TSH) 2.44 uIU/mL (0.358-3.74); Vitamin D,25 Hydroxy 17.1 ng/mL (29.95-100.01)
== END | disposition home or self-care (01) ==
LOC: POLAB3 13:34
PROVIDERS: PCP Family Medicine Geriatric Medicine; Visit Provider Family Medicine Geriatric Medicine
DX: E55.9 Vitamin D deficiency, unspecified (principal); I10 Essential (primary) hypertension
CPT/HCPCS: 36415; 80053; 82306; 84443; 85025

== ENCOUNTER → 2020-03-17 | Outpatient (CLI) | payer MEDICARE, MEDICAID, SELFPAY ==
[2016-01-04 12:56] VITALS: BMI 24.3
[2020-03-17 15:19] LABS: Absolute Lymphocyte Count 0.72 X10^3/uL (0.83-4.51); Absolute Neutrophil Count 2.7 X10^3/uL (2.0-7.7); Basophil# 0.05 X10^3/uL; Basophil% 1.3 % (0-1); Eosinophil# 0.24 X10^3/uL; Hematocrit 37.8 % (37-47); Hemoglobin 12.6 g/dL (12.0-15.0); Lymphocyte # 0.72 X10^3/ul (4.0); Lymphocyte % 18.1 % (19-41); Mean Corp Hgb Conc 33.3 g/dL (32-36); Mean Corpuscular Hgb 30.4 pg (27.0-32.0); Mean Corpuscular Volume 91.1 fL (81-99); Mean Platelet Vol. 10.1 fl (6.2-12.0); Monocyte# 0.24 X10^3/uL; NRBC Flagged by Analyzer 0 % (0-5); Neutrophil # 2.71 X10^3/uL (2.7-7.7); Neutrophil % 68.1 % (47-70); Platelet Count 246 K/mm3 (150-450); RBC Distribution Width CV 11.8 % (11.6-14.6); RBC Distribution Width SD 39.4 fl (35.1-43.9); Red Blood Count 4.15 M/mm3 (4.2-5.4)
[2020-03-17 15:42] LABS: ALB/GLOB Ratio 1.4 RATIO (0.9-2.4); AST(SGOT) 27 U/L (15-37); Alanine Aminotransfer ALT/SGPT 59 U/L (13-56); Albumin, Serum 4.2 g/dL (3.2-5.0); Alkaline Phosphatase 89 U/L (45-117); Anion Gap 3 (5-15); BUN 7 mg/dL (7-18); BUN/Creat Ratio 8.7 RATIO (10-20); Calcium,Total 9.1 mg/dL (8.5-10.1); Chloride 103 mmol/L (98-107); EST Glomerular Filtration Rate 77 mL/min (>60); Est Glom Filt Rate - Afr Amer 94 mL/min (>60); Globulin 2.9 g/dL (2.2-4.2); Glucose 88 mg/dL (74-106); Potassium 4.4 mmol/L (3.5-5.1); Protein, Total 7.1 g/dL (6.4-8.2); Sodium Level 134 mmol/L (136-145); Thyroid Stim Hormone (TSH) 1.86 uIU/mL (0.358-3.74)
== END | disposition home or self-care (01) ==
LOC: POLAB3 14:53
PROVIDERS: PCP Family Medicine Geriatric Medicine; Visit Provider Family Medicine Geriatric Medicine
DX: I10 Essential (primary) hypertension (principal)
CPT/HCPCS: 36415; 80053; 84443; 85025

== ENCOUNTER → 2020-06-06 | Outpatient (CLI) | payer MEDICARE, MEDICAID, SELFPAY ==
[2016-01-04 12:56] VITALS: BMI 24.3
--- NOTE | 2020-06-06 14:01 | RAD_ITS ---
STUDY: X-RAY - PELVIS AND RIGHT HIP REASON FOR EXAM: Right hip pain. TECHNIQUE: 2 views of the pelvis and hip. COMPARISON: None. FINDINGS: Normal visualized soft tissue structures. Normal bilateral iliac wings, sacroiliac joints and visualized sacrum. Normal bilateral superior and inferior pubic rami. Normal pubic symphysis. Normal bilateral ischial tuberosities. Normal visualized femoral head. Normal acetabulum. There is mild joint space narrowing of the right superior medial hip joint. RAD/HIP, UNI W/ Pelvis 2-3 Views IMPRESSION: Mild right hip arthrosis. Electronically Signed: Yosef Sousa MD at 15:20 EDT Tel , Service support ,
== END | disposition home or self-care (01) ==
LOC: RAD 13:54
PROVIDERS: PCP Family Medicine Geriatric Medicine; Referring Provider Family Medicine Geriatric Medicine; Visit Provider Family Medicine Geriatric Medicine
DX: M25.551 Pain in right hip (principal)
CPT/HCPCS: 73502

== ENCOUNTER 2020-06-30 16:10 | Emergency (ER) | payer MEDICARE, MEDICAID, SELFPAY ==
[2016-01-04 12:56] VITALS: BMI 24.3
[2020-06-30 16:17] VITALS: BP 150/102; PULSE 90; RESP 18; TEMP 36.8; O2SAT 99; BMI 26.7
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
== END 2020-06-30 18:04 | disposition home or self-care (01) ==
LOC: ED 16:42
PROVIDERS: Emergency Provider Emergency Medicine; PCP Family Medicine Geriatric Medicine
DX: S93.402A Sprain of unspecified ligament of left ankle, initial encounter (principal); S80.02XA Contusion of left knee, initial encounter; Z87.891 Personal history of nicotine dependence; V09.9XXA Pedestrian injured in unspecified transport accident, initial encounter; Y93.01 Activity, walking, marching and hiking; Y92.410 Unspecified street and highway as the place of occurrence of the external cause; Y99.8 Other external cause status
CPT/HCPCS: 73564; 73610; 99284; J7030

== ENCOUNTER → 2020-09-21 13:41 | Outpatient (CLI) | payer MEDICARE, MEDICAID, SELFPAY ==
[2016-01-04 12:56] VITALS: BMI 24.3
[2020-09-21 16:05] LABS: Absolute Lymphocyte Count 0.79 X10^3/uL (0.83-4.51); Absolute Neutrophil Count 3.3 X10^3/uL (2.0-7.7); Basophil# 0.04 X10^3/uL; Basophil% 0.9 % (0-1); Eosinophil# 0.08 X10^3/uL; Eosinophils% 1.8 % (0-5); Hematocrit 38.3 % (37-47); Hemoglobin 12.8 g/dL (12.0-15.0); Lymphocyte # 0.79 X10^3/ul (4.0); Lymphocyte % 17.6 % (19-41); Mean Corp Hgb Conc 33.4 g/dL (32-36); Mean Corpuscular Hgb 30.3 pg (27.0-32.0); Mean Corpuscular Volume 90.8 fL (81-99); Mean Platelet Vol. 9.3 fl (6.2-12.0); Monocyte# 0.27 X10^3/uL; NRBC Flagged by Analyzer 0 % (0-5); Neutrophil # 3.29 X10^3/uL (2.7-7.7); Neutrophil % 73.3 % (47-70); Platelet Count 275 K/mm3 (150-450); RBC Distribution Width CV 12.8 % (11.6-14.6); RBC Distribution Width SD 42.5 fl (35.1-43.9); Red Blood Count 4.22 M/mm3 (4.2-5.4); White Blood Count 4.5 K/mm3 (4.4-11.0)
[2020-09-21 16:54] LABS: ALB/GLOB Ratio 1.3 RATIO (0.9-2.4); AST(SGOT) 20 U/L (15-37); Alanine Aminotransfer ALT/SGPT 35 U/L (13-56); Albumin, Serum 3.9 g/dL (3.2-5.0); Alkaline Phosphatase 92 U/L (45-117); Anion Gap 8 (5-15); BUN 10 mg/dL (7-18); BUN/Creat Ratio 12.3 RATIO (10-20); Calcium,Total 9.4 mg/dL (8.5-10.1); Chloride 102 mmol/L (98-107); Creatinine, Serum 0.81 mg/dL (0.55-1.02); EST Glomerular Filtration Rate 77 mL/min (>60); Est Glom Filt Rate - Afr Amer 93 mL/min (>60); Glucose 82 mg/dL (74-106); Potassium 4.3 mmol/L (3.5-5.1); Protein, Total 6.9 g/dL (6.4-8.2); Sodium Level 133 mmol/L (136-145)
== END ==
PROVIDERS: PCP Family Medicine Geriatric Medicine; Visit Provider Family Medicine Geriatric Medicine
DX: I10 Essential (primary) hypertension (principal)
CPT/HCPCS: 36415; 80053; 84443; 85025

== ENCOUNTER → 2021-03-23 12:47 | Outpatient (CLI) | payer MEDICARE, MEDICAID, SELFPAY ==
[2016-01-04 12:56] VITALS: BMI 24.3
[2020-10-21 13:42] VITALS: BMI 26.6
[2021-03-23 13:41] LABS: Absolute Lymphocyte Count 0.77 X10^3/uL (0.83-4.51); Absolute Neutrophil Count 3.8 X10^3/uL (2.0-7.7); Basophil# 0.07 X10^3/uL; Basophil% 1.3 % (0-1); Eosinophil# 0.24 X10^3/uL; Eosinophils% 4.6 % (0-5); Lymphocyte # 0.77 X10^3/ul (0.83-4.51); Lymphocyte % 14.8 % (19-41); Mean Corp Hgb Conc 34.2 g/dL (32-36); Mean Corpuscular Hgb 31.6 pg (27.0-32.0); Mean Corpuscular Volume 92.5 fL (81-99); Mean Platelet Vol. 9.9 fl (6.2-12.0); Monocyte# 0.35 X10^3/uL; Monocyte% 6.7 % (0-10); NRBC Flagged by Analyzer 0 % (0-5); Neutrophil # 3.75 X10^3/uL (2.7-7.7); Neutrophil % 71.8 % (47-70); Platelet Count 275 K/mm3 (150-450); RBC Distribution Width CV 12.6 % (11.6-14.6); RBC Distribution Width SD 42.8 fl (35.1-43.9); Red Blood Count 4.11 M/mm3 (4.2-5.4); White Blood Count 5.2 K/mm3 (4.4-11.0)
[2021-03-23 14:00] LABS: ALB/GLOB Ratio 1.4 RATIO (0.9-2.4); AST(SGOT) 28 U/L (15-37); Alanine Aminotransfer ALT/SGPT 53 U/L (13-56); Albumin, Serum 4.2 g/dL (3.2-5.0); Alkaline Phosphatase 100 U/L (45-117); Anion Gap 9 (5-15); BUN 10 mg/dL (7-18); BUN/Creat Ratio 13.1 RATIO (10-20); Calcium,Total 9.3 mg/dL (8.5-10.1); Chloride 101 mmol/L (98-107); Creatinine, Serum 0.76 mg/dL (0.55-1.02); EST Glomerular Filtration Rate 82 mL/min (>60); Est Glom Filt Rate - Afr Amer 100 mL/min (>60); Glucose 95 mg/dL (74-106); Potassium 4.2 mmol/L (3.5-5.1); Protein, Total 7.2 g/dL (6.4-8.2); Sodium Level 134 mmol/L (136-145); Thyroid Stim Hormone (TSH) 1.36 uIU/mL (0.358-3.74)
[2021-03-23 14:01] LABS: Vitamin D,25 Hydroxy 26.2 ng/mL
== END ==
PROVIDERS: PCP Family Medicine Geriatric Medicine; Visit Provider Family Medicine Geriatric Medicine
DX: I10 Essential (primary) hypertension (principal); E55.9 Vitamin D deficiency, unspecified
CPT/HCPCS: 36415; 80053; 82306; 84443; 85025

== ENCOUNTER → 2021-07-20 14:23 | Outpatient (CLI) | payer MEDICARE, MEDICAID, SELFPAY ==
[2016-01-04 12:56] VITALS: BMI 24.3
--- NOTE | 2021-07-20 14:27 | RAD_ITS ---
STUDY: X-RAY - PELVIS AND RIGHT HIP REASON FOR EXAM: Female, 60 years old. HIP PAIN TECHNIQUE: 3 views of the pelvis and hip. COMPARISON: None. FINDINGS: There is a non-specific bowel gas pattern. Normal visualized soft tissue structures. Normal bilateral iliac wings, sacroiliac joints and visualized sacrum. Normal bilateral superior and inferior pubic rami. Normal pubic symphysis. Normal bilateral ischial tuberosities. Normal visualized femoral head. Normal acetabulum. Normal hip joint. RAD/HIP, UNI W/ Pelvis 2-3 Views IMPRESSION: Normal x-ray examination of the pelvis and hip. Electronically Signed: Jonh Shafer DO at 5:27 EST Tel , Service support ,
== END ==
PROVIDERS: PCP Family Medicine Geriatric Medicine; Referring Provider Family Medicine Geriatric Medicine; Visit Provider Family Medicine Geriatric Medicine
DX: M25.551 Pain in right hip (principal)
CPT/HCPCS: 73502

== ENCOUNTER 2021-09-28 13:31 | Outpatient (CLI) | payer MEDICARE, MEDICAID, SELFPAY ==
[2016-01-04 12:56] VITALS: BMI 24.3
[2021-09-28 17:11] LABS: Absolute Lymphocyte Count 0.87 X10^3/uL (0.83-4.51); Absolute Neutrophil Count 3.7 X10^3/uL (2.0-7.7); Basophil# 0.07 X10^3/uL; Basophil% 1.3 % (0-1); Eosinophil# 0.29 X10^3/uL; Eosinophils% 5.5 % (0-5); Hematocrit 38.5 % (37-47); Hemoglobin 13.2 g/dL (12.0-15.0); Lymphocyte # 0.87 X10^3/ul (0.83-4.51); Lymphocyte % 16.5 % (19-41); Mean Corp Hgb Conc 34.3 g/dL (32-36); Mean Corpuscular Hgb 31.5 pg (27.0-32.0); Mean Corpuscular Volume 91.9 fL (81-99); Mean Platelet Vol. 10.5 fl (6.2-12.0); Monocyte# 0.37 X10^3/uL; NRBC Flagged by Analyzer 0 % (0-5); Neutrophil # 3.65 X10^3/uL (2.7-7.7); Neutrophil % 69.1 % (47-70); Platelet Count 314 K/mm3 (150-450); RBC Distribution Width CV 12.7 % (11.6-14.6); RBC Distribution Width SD 42.1 fl (35.1-43.9); Red Blood Count 4.19 M/mm3 (4.2-5.4); White Blood Count 5.3 K/mm3 (4.4-11.0)
[2021-09-28 17:45] LABS: BUN 11 mg/dL (7-18); Creatinine, Serum 0.86 mg/dL (0.55-1.02); Glucose 89 mg/dL (74-106)
[2021-09-28 17:46] LABS: ALB/GLOB Ratio 1.3 RATIO (0.9-2.4); AST(SGOT) 26 U/L (15-37); Alanine Aminotransfer ALT/SGPT 52 U/L (13-56); Albumin, Serum 4.1 g/dL (3.2-5.0); Alkaline Phosphatase 108 U/L (45-117); Anion Gap 6 (5-15); BUN/Creat Ratio 12.7 RATIO (10-20); Calcium,Total 9.2 mg/dL (8.5-10.1); Chloride 101 mmol/L (98-107); EST Glomerular Filtration Rate 71 mL/min (>60); Est Glom Filt Rate - Afr Amer 86 mL/min (>60); Globulin 3.2 g/dL (2.2-4.2); Potassium 4.6 mmol/L (3.5-5.1); Protein, Total 7.3 g/dL (6.4-8.2); Sodium Level 134 mmol/L (136-145); Thyroid Stim Hormone (TSH) 2.43 uIU/mL (0.358-3.74)
== END 2021-09-28 23:59 | disposition home or self-care (01) ==
LOC: POLAB3 13:33
PROVIDERS: PCP Family Medicine Geriatric Medicine; Visit Provider Family Medicine Geriatric Medicine
DX: I10 Essential (primary) hypertension (principal)
CPT/HCPCS: 36415; 80053; 84443; 85025

== ENCOUNTER 2022-02-28 15:22 | Emergency (ER) | payer MEDICARE, MEDICAID, SELFPAY ==
[2016-01-04 12:56] VITALS: BMI 24.3
[2022-02-28 15:23] VITALS: BP 175/98; PULSE 101; RESP 16; TEMP 36.8; O2SAT 98; BMI 29.5
--- NOTE | 2022-02-28 15:42 | EDS_ITS ---
HPI History of Present Illness Chief Complaint: Numb/Ting Informant: patient Onset/Context/Timing Onset: Month(s) Context: Gradual Onset Timing: Continuous Quality: Tingling Location: Bilateral hands Worsened by: Nothing Relieved by: Nothing Narrative Narrative: Patient presents with numbness and tingling to both hands that has been getting worse over the past 7 to 8 months. Patient states it started in her right hand. Patient states that it is now in her left hand. Patient states it is mainly over the thumb, index, middle, and part of the ring fingers bilaterally. Patient states nothing makes it better nothing makes it worse. Patient denies any weakness. Patient is left-hand dominant. Patient denies any trauma or injury. [facility] Medical History (Updated 02/28/22 @ 15:[address] Rome Velez, DO) Bipolar disorder Bone fracture CPAP/BiPAP (continuous or biphasic positive airway pressure) dependent High blood pressure High cholesterol History of emotional problems Panic disorder Psychiatric care Seasonal allergies Vision problems Home Medications lamotrigine 200 mg tablet 200 mg PO QHS 02/20/14 [History Last Taken Unknown] loratadine 10 mg tablet 10 mg PO QHS 02/20/14 [History Last Taken Unknown] losartan 50 mg-hydrochlorothiazide 12.5 mg tablet 0.5 tab PO QHS 02/20/14 [History Last Taken Unknown] quetiapine 200 mg tablet 200 mg PO QHS 02/20/14 [History Last Taken Unknown] alprazolam 0.5 mg tablet 0.5 mg PO DAILY 06/30/20 [History Last Taken Unknown] atorvastatin 40 mg tablet 40 mg PO QHS 06/30/20 [History Last Taken Unknown] cholecalciferol (vitamin D3) 25 mcg (1,000 unit) tablet 1,000 unit PO DAILY 06/30/20 [History Last Taken Unknown] sertraline 100 mg tablet 100 mg PO DAILY 10/20/20 [History Last Taken Unknown] ibuprofen 600 mg tablet 600 mg PO Q8H PRN PRN Pain, tingling #20 TABLETS 02/28/22 [Rx Last Taken Unknown] Allergy/AdvReac Type Severity Reaction Status Date / Time Sulfa (Sulfonamide Allergy Hives Verified 04/20/21 13:16 Antibiotics) corn AdvReac Other Verified 02/28/22 15:25 wheat AdvReac Other Verified 07/13/22 15:25 Family History Mother Hypertension Father Hypertension Pancreatic cancer Shingles Surgical History History of hysterectomy Social History Smoking Status: Never smoker alcohol intake: current alcohol intake frequency: a few times a week Alcohol type: wine substance use type: does not use ROS ROS ED Constitutional Constitutional ED: Denies chills or fever(s) Eyes Eyes: Denies blurry vision or change in vision ENT ENT ED: Denies rhinorrhea or sore throat Cardiovascular Cardiovascular: Denies chest pain or palpitations Respiratory/Chest Respiratory/Chest: Denies cough or dyspnea Gastrointestinal Gastrointestinal: Denies nausea or vomiting Genitourinary Genitourinary ED: Denies dysuria or hematuria Musculoskeletal Musculoskeletal: Denies back pain or neck pain Integumentary Denies abscess or rash Neurologic Neurologic: Reports headache(s) and paresthesias RUE and LUE; Denies weakness Allergic/Immunologic Allergic/Immunologic ED: Denies mouth swelling or urticaria EXAM Physical Exam Const Vital Signs: 02/28/22 15:23 Temperature 98.2 F Temperature Source Temporal Pulse Rate 101 H Respiratory Rate 16 Blood Pressure 175/98 H Blood Pressure Mean 123 Pulse Ox 98 Oxygen Delivery Method Room Air Positive well nourished and well developed General Appearance ED: well developed and NAD HEENT Reports moist mucous membranes Neck supple and no JVD Resp normal respiratory effort and clear to auscultation bilaterally Cardio regular rate and regular rhythm GI normal to inspection, nondistended, normoactive bowel sounds and non-tender Extremity Extremity Narrative: There is mild tenderness over the volar aspects of the wrists bilaterally. There is positive Tinel's sign at the wrist bilaterally. Phalen's test was negative. Strength is 5/5 in the radial, median, and ulnar areas. Sensation was intact to light touch in the radial, median, and ulnar areas. Radial pulses are equal bilaterally. There is full range of motion. Neuro oriented x3, CN's II-XII intact bilaterally and no sensory deficits noted Sensorium / Orientation: alert Motor Exam: strength 5/5 throughout Psych mental status grossly normal Skin no rashes or lesions noted MDM MDM MDM Narrative Medical decision making narrative: Patient was advised that this is most likely carpal tunnel syndrome of her wrists. Patient will be given bilateral wrist splints. Patient was given a prescription for ibuprofen. Patient was instructed to ice and elevate the wrist. Patient also stated that she had some swelling to her right calf. Patient states she stepped in a hole and felt pain in her calf when she did that. Patient states the swelling has been improving since the injury. I do not feel it is a DVT. There is no distal edema. Patient understands and is agreeable with the plan. All questions were answered. Discharge Plan Triage Chief Complaint: Numb/Ting ED Provider: Rome Velez Dx/Rx/DC Orders Clinical Impression: Carpal tunnel syndrome, bilateral, Strain of right calf muscle Instructions: ED Carpal Tunnel Syndrome Prescriptions: New ibuprofen 600 mg tablet 600 mg PO Q8H PRN PRN (Reason: Pain, tingling) Qty: 20 0RF No Action lamotrigine 200 MG tablet 200 mg PO QHS quetiapine 200 MG tablet 200 mg PO QHS losartan-hydrochlorothiazide 1 EACH tablet 0.5 tab PO QHS loratadine 10 MG tablet 10 mg PO QHS sertraline 100 mg tablet 100 mg PO DAILY atorvastatin 40 MG tablet 40 mg PO QHS alprazolam 0.5 MG tablet 0.5 mg PO DAILY cholecalciferol (vitamin D3) 1,000 UNIT tablet 1,000 unit PO DAILY Primary Care Provider: Tristan Mane Chi Referrals: Tristan Mane Chi, MD [Primary Care Provider] - 1-2 Weeks Disposition Disposition: Home, Self Care
[2022-02-28 16:11] VITALS: RESP 16; TEMP 37.2; O2SAT 99
[2022-02-28] MEDS: Ibuprofen 600 MG Tablet PO (16:16)
== END 2022-02-28 16:19 | disposition home or self-care (01) ==
PROVIDERS: Emergency Provider Emergency Medicine; PCP Family Medicine Geriatric Medicine; Visit Provider Emergency Medicine
DX: G56.03 Carpal tunnel syndrome, bilateral upper limbs (principal); F31.9 Bipolar disorder, unspecified; S86.111A Strain of other muscle(s) and tendon(s) of posterior muscle group at lower leg level, right leg, initial encounter; E78.00 Pure hypercholesterolemia, unspecified; I10 Essential (primary) hypertension; Z79.899 Other long term (current) drug therapy
CPT/HCPCS: 99283

== ENCOUNTER 2022-03-05 13:30 | Emergency (ER) | payer MEDICARE, MEDICAID, SELFPAY ==
[2016-01-04 12:56] VITALS: BMI 24.3
[2022-03-05 13:32] VITALS: BP 151/84; PULSE 89; RESP 16; TEMP 36.1; O2SAT 100; BMI 28.2
--- NOTE | 2022-03-05 15:41 | EDS_ITS ---
HPI History of Present Illness Chief Complaint: GI Bleed Detail of Chief Complaint: Bleeding from her buttock Informant: patient Onset/Context/Timing Onset: Days Context: Gradual Onset Timing: Intermittent Current Severity: Mild Maximum Severity: Mild Narrative Narrative: 61-year-old female history of bipolar disorder. States she has had discomfort in her buttock area last couple weeks and on Saturday she states it burst and she has had some bleeding since that time. She denies any fever or chills. No melena or hematochezia. She had a colonoscopy years ago which she states was negative. She is on no blood thinners. She has never had any rectal surgery. Prior similar symptoms: No Recent Illness/Hospitalization: No PFSH [facility] Medical History (Updated 03/05/22 @ 17:[address] Travis Floyd MD) Bipolar disorder Bone fracture CPAP/BiPAP (continuous or biphasic positive airway pressure) dependent High blood pressure High cholesterol History of emotional problems Panic disorder Psychiatric care Seasonal allergies Vision problems Home Medications lamotrigine 200 mg tablet 200 mg PO QHS 02/20/14 [History Last Taken Unknown] loratadine 10 mg tablet 10 mg PO QHS 02/20/14 [History Last Taken Unknown] losartan 50 mg-hydrochlorothiazide 12.5 mg tablet 0.5 tab PO QHS 02/20/14 [History Last Taken Unknown] quetiapine 200 mg tablet 300 mg PO QHS 02/20/14 [History Last Taken Unknown] alprazolam 0.5 mg tablet 0.5 mg PO DAILY 06/30/20 [History Last Taken Unknown] atorvastatin 40 mg tablet 40 mg PO QHS 06/30/20 [History Last Taken Unknown] cholecalciferol (vitamin D3) 25 mcg (1,000 unit) tablet 1,000 unit PO DAILY 06/30/20 [History Last Taken Unknown] sertraline 100 mg tablet 100 mg PO DAILY 10/20/20 [History Last Taken Unknown] amoxicillin 875 mg-potassium clavulanate 125 mg tablet 1 tab PO BID 10 days #20 tabs 03/05/22 [Rx Last Taken Unknown] Allergy/AdvReac Type Severity Reaction Status Date / Time chamomile flower Allergy Upset Verified 03/05/22 13:31 Stomach Sulfa (Sulfonamide Allergy Hives Verified 03/05/22 13:31 Antibiotics) corn AdvReac Other Verified 03/05/22 13:31 wheat AdvReac Other Verified 03/05/22 13:31 Family History Mother Hypertension Father Hypertension Pancreatic cancer Shingles Surgical History History of hysterectomy Social History Smoking Status: Never smoker alcohol intake: current alcohol intake frequency: a few times a week Alcohol type: wine substance use type: does not use ROS ROS ED ROS Narrative Denies recent illness. Review of Systems ROS Unobtainable: Denies due to encephalopathy Constitutional Constitutional ED: Denies chills or fever(s) Eyes Eyes: Denies blurry vision ENT ENT ED: Denies ear pain Respiratory/Chest Respiratory/Chest: Denies cough Gastrointestinal Gastrointestinal: Denies abdominal pain, constipation, diarrhea, melena, nausea or vomiting Genitourinary Genitourinary ED: Denies dysuria Musculoskeletal Musculoskeletal: Denies arthralgias Integumentary Denies abscess Neurologic Neurologic: Denies headache(s) Psychiatric Psychiatric: Denies anxiety Endocrine Endocrinology: Denies cold intolerance Hematologic/Lymphatic Hematologic/Lymphatic: Reports none Allergic/Immunologic Allergic/Immunologic ED: Denies mouth swelling or tongue swelling EXAM Physical Exam Narrative Exam Narrative: 61-year-old female no acute distress vital signs stable afebrile. H EENT exam unremarkable. Lungs are clear. Heart regular rhythm. Abdomen soft nontender. Moving all 4 extremities. Rectal exam done with female nurse present in room. Patient has 1 external hemorrhoid is not thrombosed is nontender is not bleeding. On her buttock there appears to be an area of infection is tender its red. Is not any real fluctuance. It is firm. I think this is the area where she is bleeding from. Const Vital Signs: 03/05/22 13:32 03/05/22 15:57 Temperature 96.9 F L Temperature Source Temporal Pulse Rate 89 65 Respiratory Rate 16 18 Blood Pressure 151/84 H 134/61 H Blood Pressure Mean 106 85 Pulse Ox 100 100 Oxygen Delivery Method Room Air Room Air Positive well nourished and well developed; Negative for obese, cachectic, contractures or unkempt General Appearance ED: well developed; Negative for unkempt, cachectic or contractures Nutritional Appearance: Negative for cachectic or obese HEENT Reports moist mucous membranes Negative for trauma Eyes PERRL and EOMs intact bilaterally General Eye ED: Negative for pale conjunctiva or scleral icterus Neck no lymphadenopathy, supple and no JVD General: Negative for tenderness Lymph Lymphatic: Negative for other Chest Wall inspection of chest normal and palpation of chest normal Chest: Negative for other Resp clear to auscultation bilaterally Effort and Inspection: Negative for retractions Auscultation: Negative for rales, rhonchi or wheezes Cardio regular rate, regular rhythm, S1 normal heart sound, S2 normal heart sound and no murmurs Rate: Negative for bradycardia Rhythm: Negative for abnormal rhythm GI normal to inspection, nondistended, normoactive bowel sounds, non-tender, non- distended and no masses Inspection: Negative for abdominal distention Auscultation: normoactive bowel sounds Palpation: soft; Negative for tender or guarding Back/Spine no CVA tenderness General Back: Negative for CVA tenderness Extremity normal to inspection General Extremety ED: Negative for edema or tenderness General Extremity: Negative for edema Neuro oriented x3 Sensorium / Orientation: alert; Negative for orientation impaired, lethargic or stuporous Psych Appearance: Negative for unkempt Skin no rashes or lesions noted and no wounds Skin Narrative: Right buttock abscess. No active bleeding. No fluctuance. Rashes: No rashes noted Trauma: Negative for abrasion Wounds: Negative for wounds noted MDM MDM MDM Narrative Medical decision making narrative: Patient had bleeding I believe is from the right buttock early abscess. B applied to the area. I will try to aspirate. If there is pus will be incised and drained if not she will need to be put on antibiotics and warm soaks and follow-up with general surgery. After let was applied to the buttock abscess I aspirated with a 22-gauge needle got bloody visually no significant pus. This does not need to be drained at this time. There is no fluctuance. She be placed on Augmentin twice daily for 10 days follow-up with general surgery on-call which is Dr. Vidal templeton. Return if she gets a fever, feels worse or this is getting bigger because it m ight need to be drained. Discharge Plan Triage Chief Complaint: GI Bleed ED Provider: Travis Floyd Dx/Rx/DC Orders Clinical Impression: Abscess of buttock, Hx of bipolar disorder Instructions: ED Abscess Antibiotic Treatment Only Prescriptions: New amoxicillin-pot clavulanate 875-125 mg tablet 1 tab PO BID 10 Days Qty: 20 0RF No Action lamotrigine 200 MG tablet 200 mg PO QHS quetiapine 200 MG tablet 300 mg PO QHS losartan-hydrochlorothiazide 1 EACH tablet 0.5 tab PO QHS loratadine 10 MG tablet 10 mg PO QHS sertraline 100 mg tablet 100 mg PO DAILY atorvastatin 40 MG tablet 40 mg PO QHS alprazolam 0.5 MG tablet 0.5 mg PO DAILY cholecalciferol (vitamin D3) 1,000 UNIT tablet 1,000 unit PO DAILY Primary Care Provider: Tristan Mane Chi Referrals: Vidal Cadet MD [STAFF PHYSICIAN] - As soon as possible Tristan Mane Chi, MD [Primary Care Provider] - Activity Restrictions/Additional Instructions: Tylenol and Motrin for pain. Warm soaks twice a day. Augmentin antibiotic 1 pill twice a day for 10 days. You have an abscess on your right buttock. Hopefully the antibiotic will resolve it. You need to follow-up with a general surgeon I referred you to to make sure this does not need to be drained. At this time it does not. Disposition Disposition: Home, Self Care
[2022-03-05] MEDS: Lidocaine/Epi/Tetracaine 50 ML 1 APPLIC TOPICAL (15:46)
[2022-03-05 15:57] VITALS: BP 134/61; PULSE 65; RESP 18; O2SAT 100
--- NOTE | 2022-03-05 16:57 | ED.RN ---
ASSISTED DR RODRIGUEZ WITH DRAINAGE OF ABSCESS. SMALL AMOUNT OF BLOOD RETURN. 2X2 AND 4X4 PLACED. PT TOLERATED WELL
[2022-03-05] MEDS: Amox/Clavulanate 875 MG Tablet PO (17:18)
== END 2022-03-05 17:19 | disposition home or self-care (01) ==
PROVIDERS: Emergency Provider Emergency Medicine; PCP Family Medicine Geriatric Medicine; Visit Provider Emergency Medicine
DX: L02.31 Cutaneous abscess of buttock (principal); F31.9 Bipolar disorder, unspecified; E78.00 Pure hypercholesterolemia, unspecified; K64.4 Residual hemorrhoidal skin tags; Z79.899 Other long term (current) drug therapy
CPT/HCPCS: 99283; A4216

== ENCOUNTER 2022-03-20 11:01 | Emergency (ER) | payer MEDICARE, MEDICAID, SELFPAY ==
[2016-01-04 12:56] VITALS: BMI 24.3
[2022-03-20 11:03] VITALS: BP 119/105; PULSE 96; RESP 16; TEMP 35; O2SAT 95; BMI 28.0
--- NOTE | 2022-03-20 11:59 | EX.ED.DYSGE1 ---
HPI History of Present Illness Chief Complaint: Abscess Informant: patient Narrative Narrative: Patient is a 61 year old female with with recent buttocks abscess (treated with a 10-day course of Augmentin) presenting with persistent pain and bleeding from her buttocks. She is not exactly sure where it is coming from. She notes she has blood when she wipes on the toilet paper and if she is moving around a lot will have bleeding. She was seen in our ER on 03/05 where she was prescribed Augmentin and also had needle aspiration that was negative for any purulence. She has since followed up with her PCP as well. Symptoms do seem to be worse after having a bowel movement. Denies any associate abdominal pain, fever, chills or change in bowel habits. Denies any trauma to the area. No other complaints at this time. [facility] Medical History (Updated 03/20/22 @ 12:[address] Nadia Mireles, DO) Bipolar disorder Bone fracture CPAP/BiPAP (continuous or biphasic positive airway pressure) dependent High blood pressure High cholesterol History of emotional problems Panic disorder Psychiatric care Seasonal allergies Vision problems Home Medications lamotrigine 200 mg tablet 200 mg PO QHS 02/20/14 [History Last Taken Unknown] loratadine 10 mg tablet 10 mg PO QHS 02/20/14 [History Last Taken Unknown] losartan 50 mg-hydrochlorothiazide 12.5 mg tablet 0.5 tab PO QHS 02/20/14 [History Last Taken Unknown] quetiapine 200 mg tablet 300 mg PO QHS 02/20/14 [History Last Taken Unknown] alprazolam 0.5 mg tablet 0.5 mg PO DAILY 06/30/20 [History Last Taken Unknown] atorvastatin 40 mg tablet 40 mg PO QHS 06/30/20 [History Last Taken Unknown] cholecalciferol (vitamin D3) 25 mcg (1,000 unit) tablet 1,000 unit PO DAILY 06/30/20 [History Last Taken Unknown] sertraline 100 mg tablet 100 mg PO DAILY 10/20/20 [History Last Taken Unknown] amoxicillin 875 mg-potassium clavulanate 125 mg tablet 1 tab PO BID 10 days #20 tabs 03/05/22 [Rx Last Taken Unknown] lidocaine HCl 2 % mucosal jelly 1 applic topical TID PRN pain #30 mL 03/20/22 [Rx Last Taken Unknown] mupirocin 2 % topical ointment 1 applic topical TID 7 days #15 grams 03/20/22 [Rx Last Taken Unknown] Allergy/AdvReac Type Severity Reaction Status Date / Time chamomile flower Allergy Upset Verified 03/20/22 11:05 Stomach Sulfa (Sulfonamide Allergy Hives Verified 03/20/22 11:05 Antibiotics) corn AdvReac Other Verified 03/20/22 11:05 wheat AdvReac Other Verified 03/20/22 11:05 Family History Mother Hypertension Father Hypertension Pancreatic cancer Shingles Surgical History History of hysterectomy Social History Smoking Status: Never smoker alcohol intake: current alcohol intake frequency: a few times a week Alcohol type: wine substance use type: does not use ROS ROS ED Constitutional Constitutional ED: Denies chills or fever(s) Eyes Eyes: Denies change in vision ENT ENT ED: Denies sore throat Cardiovascular Cardiovascular: Denies chest pain Respiratory/Chest Respiratory/Chest: Denies cough Gastrointestinal Gastrointestinal: Denies abdominal pain, constipation, diarrhea or nausea Genitourinary Genitourinary ED: Denies dysuria or hematuria Musculoskeletal Musculoskeletal: Denies arthralgias or back pain Integumentary Reports other Details: bleeding from buttocks Neurologic Neurologic: Denies headache(s) or weakness Psychiatric Psychiatric: Denies anxiety Hematologic/Lymphatic Hematologic/Lymphatic: Denies easy bleeding or easy bruising EXAM Physical Exam Const Vital Signs: 03/20/22 11:03 03/20/22 12:25 Temperature 95.0 F L Temperature Source Temporal Pulse Rate 96 67 Respiratory Rate 16 14 Blood Pressure 119/105 H Blood Pressure Mean 109 Pulse Ox 95 98 Oxygen Delivery Method Room Air Positive well nourished and well developed General Appearance ED: well developed and NAD HEENT Reports moist mucous membranes Eyes PERRL and EOMs intact bilaterally Neck supple Chest Wall inspection of chest normal Resp normal respiratory effort and clear to auscultation bilaterally GI normal to inspection, nondistended, normoactive bowel sounds and non-tender GI Narrative: On rectal exam patient does not have any perirectal abscess. She does have half centimeter anal fissure of the right perirectal area that appears open but is not actively bleeding. There is no associated fluctuance or drainage with his this time. Extremity normal to inspection Neuro oriented x3 Motor Exam: Negative for general weakness Psych mental status grossly normal Skin Skin Narrative: 5 mm perirectal abscess on the right inferior side MDM MDM MDM Narrative Medical decision making narrative: Patient's evaluate for continued bleeding and discomfort in her rectum area. On exam she has what appears to be an anal fissure. Is not active bleeding. I do not see any secondary infectious changes. There is no sign of an abscess at this time. Patient be placed on stool softeners, prescribed topical lidocaine for pain control and given surgery for follow-up. At this time I do not suspect any infection. She is counseled that she does need to follow-up with surgery. She is counseled on return precautions. She verbalizes agreement understand with this plan. Discharge Plan Triage Chief Complaint: Abscess ED Provider: Nadia Mireles Dx/Rx/DC Orders Clinical Impression: Acute posterior anal fissure Instructions: ED Understanding Anal Fissures, Taking a Sitz Bath Prescriptions: New lidocaine HCl 2 % jelly 1 applic topical TID PRN (Reason: pain) Qty: 30 0RF Rx Instructions: apply to rectal area for pain mupirocin 2 % ointment 1 applic topical TID 7 Days Qty: 15 0RF No Action lamotrigine 200 MG tablet 200 mg PO QHS quetiapine 200 MG tablet 300 mg PO QHS losartan-hydrochlorothiazide 1 EACH tablet 0.5 tab PO QHS loratadine 10 MG tablet 10 mg PO QHS sertraline 100 mg tablet 100 mg PO DAILY atorvastatin 40 MG tablet 40 mg PO QHS alprazolam 0.5 MG tablet 0.5 mg PO DAILY cholecalciferol (vitamin D3) 1,000 UNIT tablet 1,000 unit PO DAILY amoxicillin-pot clavulanate 875-125 mg tablet 1 tab PO BID 10 Days Qty: 20 0RF Primary Care Provider: Tristan Mane Chi Referrals: Tristan Mane Chi, MD [Primary Care Provider] - Amee Esteban MD [Med Staff - Active Staff] - As soon as possible Activity Restrictions/Additional Instructions: Take [id number] stool softener such as MiraLAX or Colace to help keep her bowel movements soft. Avoid any aggressive wiping to the rectum area as to not irritate the skin around the rectum. Apply the antibiotic ointment as well as lidocaine ointment which will help with the pain. Disposition Disposition: Home, Self Care Discharge Date/Time: 03/20/22 12:26
[2022-03-20 12:25] VITALS: PULSE 67; RESP 14; O2SAT 98
== END 2022-03-20 12:26 | disposition home or self-care (01) ==
PROVIDERS: Emergency Provider Emergency Medicine; PCP Family Medicine Geriatric Medicine; Visit Provider Emergency Medicine
DX: K60.0 Acute anal fissure (principal); F31.9 Bipolar disorder, unspecified; E78.00 Pure hypercholesterolemia, unspecified; L02.31 Cutaneous abscess of buttock; Z79.899 Other long term (current) drug therapy; F41.0 Panic disorder [episodic paroxysmal anxiety]
CPT/HCPCS: 99282

== ENCOUNTER → 2022-05-07 | Outpatient (CLI) | payer MEDICARE, MEDICAID, SELFPAY ==
[2016-01-04 12:56] VITALS: BMI 24.3
--- NOTE | 2022-05-07 14:12 | NEURO ---
NCS and/or EMG Patient Report Ordering Doctor: Tristan Mane Chi DATE OF SERVICE: 05/07/22 Indication: Bilateral hand numbness (right greater than left). 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 Findings: Nerve conduction studies were performed in the right and left upper extremities. The right median motor study recording the abductor pollicis brevis was absent. The right ulnar motor study recording the abductor digiti minimi showed a normal amplitude, normal distal latency and normal conduction velocity. No conduction block or focal slowing was present across the elbow. The right median sensory response recording digit two was absent. The right ulnar sensory response recording digit five showed a normal amplitude, latency and conduction velocity. The right radial sensory response recording over the extensor snuff box showed a normal amplitude, latency and conduction velocity. The left median motor study recording the abductor pollicis brevis showed a normal amplitude, prolonged distal latency and slowed conduction velocity. The left ulnar motor study recording the abductor digiti minimi showed a normal amplitude, normal distal latency and normal conduction velocity. No conduction block or focal slowing was present across the elbow. The left median sensory response recording digit two showed a reduced amplitude, prolonged latency and markedly slowed conduction velocity. The left ulnar sensory response recording digit five showed a normal amplitude, latency and conduction velocity. The left radial sensory response recording over the extensor snuff box showed a normal amplitude, latency and conduction velocity. Right median-ulnar lumbrical / interosseous motor latencies showed a prolonged median latency compared to the ulnar. Needle EMG of the right upper extremity and cervical paraspinal muscles was performed. Active denervation was seen in the abductor pollicis brevis muscle. No volitional motor units were seen in the abductor pollicis brevis. Motor units in the deltoid and biceps were large amplitude, long duration with slightly reduced recruitment. All other motor unit morphology, activation and recruitment patterns were normal. Needle EMG of the left abductor pollicis brevis muscle was performed. No denervation was seen. Motor units were large amplitude, long duration with normal recruitment. Impression: This is an abnormal study. 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 No axonal continuity could be established to the right thenar muscles. These findings are compatible with the clinical diagnosis of carpal tunnel syndrome. In addition, there is electrophysiologic evidence of a superimposed, mild, chronic, C5/6 radiculopathy in the right upper extremity. Franck Jimenez D.O. Multi Select Codes Neurology Neurology Interp C[place]: 15515-46 [facility] [place]st [place]ke [place]interp[place] (59), 30399-56 [facility] [place]/n test comp (interp) and 22773-09 [facility] cndj test 11-12 studies (interp)
== END | disposition home or self-care (01) ==
LOC: PSN 12:30
PROVIDERS: PCP Family Medicine Geriatric Medicine; Referring Provider Family Medicine Geriatric Medicine; Visit Provider Family Medicine Geriatric Medicine
DX: R20.0 Anesthesia of skin (principal)
CPT/HCPCS: 95885; 95886; 95912

== ENCOUNTER → 2022-05-17 | Outpatient (CLI) | payer MEDICARE, MEDICAID, SELFPAY ==
[2016-01-04 12:56] VITALS: BMI 24.3
== END | disposition home or self-care (01) ==
LOC: POLAB3 13:34
PROVIDERS: PCP Family Medicine Geriatric Medicine; Visit Provider Family Medicine Geriatric Medicine
DX: I10 Essential (primary) hypertension (principal); E55.9 Vitamin D deficiency, unspecified
CPT/HCPCS: 36415; 80053; 82306; 84443

== ENCOUNTER → 2022-05-24 | Outpatient (CLI) | payer MEDICARE, MEDICAID, SELFPAY ==
[2016-01-04 12:56] VITALS: BMI 24.3
--- NOTE | 2022-05-24 13:51 | BI_ITS ---
MAMMOGRAPHY - BILATERAL SCREENING REASON FOR EXAM: Female, 61 years old. Routine annual screening examination. PERTINENT HISTORY: Non-contributory. TECHNIQUE: Digital bilateral breast rosemary (3D mammographic acquisition) in the CC and MLO projections. 2-D mediolateral oblique (MLO) and craniocaudad (CC) views of both breasts were obtained. CAD: Full Field Digital Mammography with Computer Added Detection was performed. COMPARISON: Comparison is made with prior abdomen examination dated 05/29/2016. FINDINGS: Breast Composition: There are scattered areas of fibroglandular density. There are no dominant masses or suspicious calcifications. Stable small benign-appearing bilateral axillary lymph nodes. No other significant abnormalities are identified. There has been no significant change since the prior study. BI/SCRN MAMM (CAD)W/ROSEMARY BILAT IMPRESSION: Stable bilateral screening mammogram. Yearly follow-up mammogram recommended. (A) ASSESSMENT CATEGORY: BIRADS Category 2: Benign. A letter regarding these results will be sent to the patient by the facility within 30 days. Approximately 10% of breast cancers are not detected by mammography. A normal mammogram should not delay biopsy of a clinically suspicious abnormality. [id number] Electronically Signed: Mike Best MD at 14:34 EDT ,
== END | disposition home or self-care (01) ==
LOC: OPBI 13:38
PROVIDERS: PCP Family Medicine Geriatric Medicine; Visit Provider Family Medicine Geriatric Medicine
DX: Z12.31 Encounter for screening mammogram for malignant neoplasm of breast (principal)
CPT/HCPCS: 77063; 77067

== ENCOUNTER → 2022-06-20 | Outpatient (CLI) | payer MEDICARE, MEDICAID, SELFPAY ==
[2016-01-04 12:56] VITALS: BMI 24.3
[2022-06-20 17:14] LABS: Absolute Lymphocyte Count 0.75 X10^3/uL (0.83-4.51); Absolute Neutrophil Count 3.1 X10^3/uL (2.0-7.7); Basophil# 0.07 X10^3/uL; Basophil% 1.5 % (0-1); Eosinophils% 6.6 % (0-5); Hematocrit 34.9 % (37-47); Hemoglobin 12.1 g/dL (12.0-15.0); Lymphocyte # 0.75 X10^3/ul (0.83-4.51); Lymphocyte % 16.6 % (19-41); Mean Corp Hgb Conc 34.7 g/dL (32-36); Mean Corpuscular Hgb 32.4 pg (27.0-32.0); Mean Corpuscular Volume 93.3 fL (81-99); Mean Platelet Vol. 9.6 fl (6.2-12.0); Monocyte# 0.25 X10^3/uL; Monocyte% 5.5 % (0-10); NRBC Flagged by Analyzer 0 % (0-5); Neutrophil # 3.12 X10^3/uL (2.7-7.7); Neutrophil % 69.1 % (47-70); Platelet Count 243 K/mm3 (150-450); RBC Distribution Width CV 13.2 % (11.6-14.6); RBC Distribution Width SD 44.7 fl (35.1-43.9); Red Blood Count 3.74 M/mm3 (4.2-5.4); White Blood Count 4.5 K/mm3 (4.4-11.0)
[2022-06-20 17:16] LABS: Prothrombin Time (Protime)PT. 12.7 SECONDS (11.7-14.9)
[2022-06-20 17:24] LABS: Anion Gap 7 (5-15); BUN 13 mg/dL (7-18); BUN/Creat Ratio 14.8 RATIO (10-20); Calcium,Total 9.4 mg/dL (8.5-10.1); Chloride 103 mmol/L (98-107); Creatinine, Serum 0.88 mg/dL (0.55-1.02); EST Glomerular Filtration Rate 69 mL/min (>60); Est Glom Filt Rate - Afr Amer 84 mL/min (>60); Glucose 90 mg/dL (74-106); Potassium 3.9 mmol/L (3.5-5.1); Sodium Level 136 mmol/L (136-145)
== END | disposition home or self-care (01) ==
PROVIDERS: PCP Family Medicine Geriatric Medicine; Visit Provider Family Medicine Geriatric Medicine
DX: Z01.810 Encounter for preprocedural cardiovascular examination (principal)
CPT/HCPCS: 36415; 80048; 85025; 85610

== ENCOUNTER 2022-07-17 08:06 | Day surgery (SDC) | payer MEDICARE, MEDICAID, SELFPAY ==
[2016-01-04 12:56] VITALS: BMI 24.3
[2022-07-17] VITALS (7 sets, daily range): BP systolic 123–156; BP diastolic 73–96; PULSE 82–92; RESP 16–20; TEMP 36.1–36.7; O2SAT 93–98; BMI 27.3
[2022-07-17] MEDS: Lactated Ringers 1,000 ML 15 ML IV (08:35)
--- NOTE | 2022-07-17 10:05 | HP.PCM_ITS ---
History and Physical Date of Admission: 07/17/22 [facility] [address] [place] [address] OFFICE VISIT Date of Service:? 05/21/22 MR#: [id number] Acct: [id number] Name:PREMA BENTON Rep #: [id number] : 1960 ? ? Provider: Dr. Jarvis Wallace, DO Age/Sex:? 61/F ? ? [place] [facility] [place] Status: Signed Intake Vital Signs ? 03/20/2211:03 Height 5 ft 9 in Weight: 190 lb BMI 28.0 BP 119/105 H Respiration 16 Pulse 96 Temp 95.0 F L Temp Source Temporal Pulse Oximetry (%) 95 Intake Visit Reasons:?bilat hands Is patient in pain?: Yes Allergies chamomile flower Allergy (Verified 05/21/22 13:07) Upset StomachSulfa (Sulfonamide Antibiotics) Allergy (Verified 05/21/22 13:07) Hivescorn Adverse Reaction (Verified 05/21/22 13:07) Otherwheat Adverse Reaction (Verified 05/21/22 13:07) Other Medications lamotrigine 200 mg tablet 200 mg PO QHS 02/20/14 [History Confirmed 03/05/22] loratadine 10 mg tablet 10 mg PO QHS 02/20/14 [History Confirmed 03/05/22] losartan 50 mg-hydrochlorothiazide 12.5 mg tablet 0.5 tab PO QHS 02/20/14 [History Confirmed 03/05/22] quetiapine 200 mg tablet 300 mg PO QHS 02/20/14 [History Confirmed 03/05/22] alprazolam 0.5 mg tablet 0.5 mg PO DAILY 06/30/20 [History Confirmed 03/05/22] atorvastatin 40 mg tablet 40 mg PO QHS 06/30/20 [History Confirmed 03/05/22] cholecalciferol (vitamin D3) 25 mcg (1,000 unit) tablet 1,000 unit PO DAILY 06/30/20 [History Confirmed 03/05/22] sertraline 100 mg tablet 100 mg PO DAILY 10/20/20 [History Confirmed 03/05/22] mupirocin 2 % topical ointment 1 applic topical TID 7 days #15 grams 03/20/22 [Rx] naproxen sodium 220 mg tablet (Flanax (naproxen)) 220 mg PO Q8H PRN 05/21/22 [History Confirmed 05/21/22] PFSH Medical History?(Updated 05/21/22 @ 13:34 by Deanna Cruz) Bipolar disorder Bone fracture Carpal tunnel syndrome, bilateral CPAP/BiPAP (continuous or biphasic positive airway pressure) dependent High blood pressure High cholesterol History of emotional problems Panic disorder Psychiatric care Seasonal allergies Vision problems Surgical History? History of hysterectomy Family History? Mother HypertensionFather Hypertension Pancreatic cancer Shingles Social History? Smoking Status:? Never smoker alcohol intake:? current alcohol intake frequency: a few times a week Alcohol type: wine substance use type:? does not use HPI bilat hands Chief Complaint: bilteral wrist pain and tingling Details: Parts of this documentation were recorded by a scribe, this documentation accurately reflects the service provided and the decisions made by me, Dr. Jarvis Wallace, DO 05/21/22 1303. PREMA CID is a 61 year old F New patient here today? for bilateral hand /finger pain numbnes and tingling in the radial 3 and 1/2 digits., she did have nerve conduction study ordered by pcp. Her right is worse than her left. Pt. was referred by Dr. Mane for? carpal tunnel surgery on bilateral wrists. She has had numbness and tingling since July in her right wrist and since October in the left wrist. Pt. states she is having difficulty with ADL's such as food preparation.? Minimal relief with bracing and she has tried ibuprofen without success. She is left hand dominant. She had wrist tendinitis in the . Patient had a rectal abscess in january for which she states she was supposed to follow-up with a specialist but never did. Ortho Exam General General: Yes no acute distress Neurologic: Yes alert and Yes oriented x3 Psychologic: Yes reasonable and appropriate Right Wrist/Hand Skin/Wound: Yes CDI, No Swelling, No Ecchymosis and Yes nail intact Right Wrist: Yes Tinel's, Phalen's and Thenar Atrophy; No Hypothenar Atrophy WRIST: No signs of infection Left Wrist/Hand Skin/Wound: No Swelling, No Ecchymosis, Yes nail intact and No erythema Left Wrist: Yes Tinel's and Yes Phalen's; No Hypothenar Atrophy WRIST: possible early mild thenar atrophy, Supplemental Info 05/07/2022 EMG bilateral upper extremity:This is an abnormal study. 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 No axonal continuity could be established to the right thenar muscles. These findings are compatible with the clinical diagnosis of carpal tunnel syndrome. In addition, there is electrophysiologic evidence of a superimposed, mild, chronic, C5/6 radiculopathy in the right upper extremity. Coding Level of Care Code Off vis,new,level 3 Diagnoses Carpal tunnel syndrome, bilateral? G56.03 Assessment and Plan Assessment and Plan (1) Carpal tunnel syndrome, bilateral: ?Status:?Acute Plan Educated the patient about the anatomy of the hand and wrist. Spoke with her about the severity of her carpal tunnel syndrome particularly on the right as the EMG shows no continuity of sensory or motor signal past the wrist this tends toward a poor prognosis from a surgical standpoint. Explained that she is a candidate for surgery due to the severity but she may not get any resolution of symptoms or may get partial resolution I would expect a longer duration of time of recovery particularly in regards to the right I did also explain that sometimes the hand will get more numb and tingling in the severe cases as the nerve comes back to working. Spoke with her about the possibility for her to continue to have the pain, as well as incisional hypersensitivity and pillar pain from the surgery ,she would like to have her left hand completed first and then 6 weeks later, she may have her right hand released. Spoke with the patient about the surgery procedure and recovery. She will have a lifting restriction following her surgery. Patient will be able to work on range of motion at home post op. Our office needs to get clearance from her PCP I would like to know that this rectal abscess is completely resolved and no further treatment is needed as she did not have her follow-up that was recommended.? Then we will get her scheduled for surgery.? Reviewed the pre-operative plans with the patient. Risks and benefits of the procedure were fully explained, including but not limited to infection, neurovascular injury, continued pain, arthritis, stiffness, need for further surgery, re-injury, DVT, PE, general risks of anesthesia, and loss of limb or life. The patient understands all the risks and does wish to proceed with written consent. Follow up for her 2 week post op or sooner if pain, swelling, numbness or associated symptoms, or concerns develop.? All questions answered. Patient in agreement of plan. 05/21/22 1430 <Electronically signed by Jarvis Wallace DO> Date Jarvis Wallace DO Cosigner Signature: Date (if applicable) ? CC:? Dr. Tristan Mane MD ~ I have examined the patient and the H&P has been reviewed. There are no clinical changes since date of exam.
[2022-07-17] MEDS: Cefazolin 2 GM in 0.9% Normal Saline 100 ML IV (10:15)
[2022-07-17] MEDS: Lidocaine 1% (30 ml sdv) 30 ML Vial (10:39)
[2022-07-17] MEDS: Lidocaine 2% /Epi 1:100 (20ml) 20 ML VIAL (10:40)
--- NOTE | 2022-07-17 10:50 | OP.PCM_ITS ---
Operative Report Date of Procedure: 07/17/22 Preoperative diagnosis; left carpal tunnel syndrome Postoperative diagnosis; same Procedure: Left open carpal tunnel release Anesthesia: Local with MAC Tourniquet time; 10 minutes 250 mm Hg Complications: None Indication for procedure; This is a 61-year-old female with long-standing sym ptoms consistent with carpal tunnel syndrome the patient did have electrodiagnostic evidence of this and has failed conservative treatment. Risks benefits and alternatives were reviewed including risks of bleeding infection nerve artery tissue damage need for further surgery and continued pain and symptoms, hypersensitivity to scar and Pillar pain. Procedure; The patient was met in the preoperative holding area the operative extremity was identified by both patient and physician and was marked the patient was met by anesthesia and brought back to the operating room and transferred to the operating table in the supine position. Anesthesia was started. A well-padded tourniquet was placed on the operative upper extremity. The patient was prepped and draped in the usual sterile fashion. A timeout was called to ensure the proper patient procedure and extremity were being contemplated. 0.5 percent lidocaine with epinephrine was injected into the incisional area. An Esmarch was used to exsanguinate the extremity. The tourniquet was inflated to 250 mmHg. A midline incision was made with a 15 blade scalpel between the thenar and hypothenar eminence. This was carried down through the skin and subcutaneous tissue. Lambert retractors were then used, a deep blade scalpel was used to make a deep incision in the palmar aponeurosis. The lambert retractors were then placed deep to this and the transverse carpal ligament was identified a perforation was made with a scalpel and a Littler scissors were used to complete the release of the transverse carpal ligament distally under direct visualization with the tips facing ulnarly until the perivascular fat was reached. Then turning our attention proximally using a tension slide technique the proximal extent of the transverse carpal ligament was released . There was noted to be hourglass configuration to the median nerve and hypertrophy of the transverse carpal ligament without other findings. The wound was thoroughly irrigated and was closed with 4-0 nylon vertical mattress stitches. Dressing was applied in the form of xeroform 4 x 4, web roll and an laney wrap. Tourniquet was let down there is no intraoperative complications patient tolerated the procedure well and was transferred to the PACU. All counts were correct.
--- NOTE | 2022-07-17 10:51 | DCINST_ITS ---
Discharge Instructions Dressing / Incision Call your doctor if you observe: Shortness of breath and Chest pain Additional Dressing/Incision Instructions:: Ice and elevate operative extremity next 72 hours. Keep dressing on clean and dry for 48 hours then may remove and allow warm soapy water to rinse over incision but do not submerge until sutures are out. Then apply bandaid over incision and change daily. encourage finger range of motion. Not lift more than 1/2 pound. Minimize narcotic use only as needed and directed, may use OTC NSAID and Tylenol to supplement/substitute for pain control. Follow Up Care Please Follow Up With: Jarvis Wallace DO When: 2 weeks Test Results: Test results from this visit will be discussed in further detail at your follow- up appointment, if applicable. Discharge Plan Admission Primary Reason for Your Visit: Left carpal tunnel release Attending Provider: Jarvis Wallace Primary Care Provider: Tristan Mane Chi Discharge Orders/Prescriptions Prescriptions: New oxycodone 5 mg tablet 5 - 10 mg PO Q4H PRN (Reason: pain) 3 Days Qty: 15 0RF No Action naproxen sodium [Flanax (naproxen)] 220 mg tablet 220 mg PO Q8H PRN (Reason: Pain) lamotrigine 200 MG tablet 200 mg PO QHS quetiapine 200 MG tablet 200 mg PO QHS losartan-hydrochlorothiazide 1 EACH tablet 0.5 tab PO QHS loratadine 10 MG tablet 10 mg PO QHS sertraline 100 mg tablet 100 mg PO DAILY atorvastatin 40 MG tablet 40 mg PO QHS alprazolam 0.5 MG tablet 0.5 mg PO DAILY cholecalciferol (vitamin D3) 1,000 UNIT tablet 1,000 unit PO DAILY polyethylene glycol 3350 [Miralax] 17 gram Powder In Packet 17 g PO DAILY Referrals / Follow Up: Tristan Mane Chi, MD [Primary Care Provider] - Disposition Disposition (needs filled in before D/C Order can be placed): Home, Self Care
== END 2022-07-17 12:15 | disposition home or self-care (01) ==
LOC: SDC 08:07 → AC 08:08
PROVIDERS: PCP Family Medicine Geriatric Medicine; Referring Provider Orthopaedic Surgery; Visit Provider Orthopaedic Surgery
PROC: (CPT 64721; principal; 2022-07-17 09:45)
DX: G56.03 Carpal tunnel syndrome, bilateral upper limbs (principal); E78.00 Pure hypercholesterolemia, unspecified; Z79.899 Other long term (current) drug therapy
CPT/HCPCS: 64721; 01810; J7120; J2405

== ENCOUNTER → 2022-11-19 | Outpatient (CLI) | payer MEDICARE, MEDICAID, SELFPAY ==
[2016-01-04 12:56] VITALS: BMI 24.3
[2022-11-19 17:10] LABS: Absolute Lymphocyte Count 1.04 X10^3/uL (0.83-4.51); Absolute Neutrophil Count 3.4 X10^3/uL (2.0-7.7); Basophil# 0.06 X10^3/uL; Basophil% 1.2 % (0-1); Eosinophil# 0.25 X10^3/uL; Eosinophils% 4.9 % (0-5); Hematocrit 38.4 % (37-47); Hemoglobin 13.1 g/dL (12.0-15.0); Lymphocyte # 1.04 X10^3/ul (0.83-4.51); Lymphocyte % 20.5 % (19-41); Mean Corp Hgb Conc 34.1 g/dL (32-36); Mean Corpuscular Hgb 31.5 pg (27.0-32.0); Mean Corpuscular Volume 92.3 fL (81-99); Mean Platelet Vol. 9.6 fl (6.2-12.0); Monocyte# 0.33 X10^3/uL; Monocyte% 6.5 % (0-10); NRBC Flagged by Analyzer 0 % (0-5); Neutrophil # 3.37 X10^3/uL (2.7-7.7); Neutrophil % 66.3 % (47-70); Platelet Count 250 K/mm3 (150-450); RBC Distribution Width CV 12.7 % (11.6-14.6); RBC Distribution Width SD 43.2 fl (35.1-43.9); Red Blood Count 4.16 M/mm3 (4.2-5.4); White Blood Count 5.1 K/mm3 (4.4-11.0)
[2022-11-19 17:27] LABS: Vitamin D,25 Hydroxy 28.1 ng/mL
[2022-11-19 17:38] LABS: ALB/GLOB Ratio 1.5 RATIO (0.9-2.4); AST(SGOT) 36 U/L (15-37); Alanine Aminotransfer ALT/SGPT 56 U/L (13-56); Albumin, Serum 4.4 g/dL (3.2-5.0); Alkaline Phosphatase 92 U/L (45-117); Anion Gap 4 (5-15); BUN 11 mg/dL (7-18); Calcium,Total 9.2 mg/dL (8.5-10.1); Chloride 101 mmol/L (98-107); Creatinine, Serum 0.79 mg/dL (0.55-1.02); EST Glomerular Filtration Rate 79 mL/min (>60); Est Glom Filt Rate - Afr Amer 95 mL/min (>60); Globulin 2.9 g/dL (2.2-4.2); Glucose 77 mg/dL (74-106); Potassium 3.9 mmol/L (3.5-5.1); Protein, Total 7.3 g/dL (6.4-8.2); Sodium Level 133 mmol/L (136-145); Thyroid Stim Hormone (TSH) 1.54 uIU/mL (0.358-3.74)
== END | disposition home or self-care (01) ==
LOC: POLAB3 14:08
PROVIDERS: PCP Family Medicine Geriatric Medicine; Visit Provider Family Medicine Geriatric Medicine
DX: I10 Essential (primary) hypertension (principal); E55.9 Vitamin D deficiency, unspecified
CPT/HCPCS: 36415; 80053; 82306; 84443; 85025

== ENCOUNTER 2022-12-21 07:11 | Day surgery (SDC) | payer MEDICARE, MEDICAID, SELFPAY ==
[2016-01-04 12:56] VITALS: BMI 24.3
[2022-12-21] VITALS (8 sets, daily range): BP systolic 148–198; BP diastolic 83–96; PULSE 83–95; RESP 16–18; TEMP 36.2–36.4; O2SAT 94–98; BMI 29.0
[2022-12-21] MEDS: Lactated Ringers 1,000 ML 15 ML IV (07:52)
--- NOTE | 2022-12-21 08:26 | HP.PCM_ITS ---
History and Physical Date of Admission: 12/21/22 [facility] [address] [place] [address] OFFICE VISIT Date of Service:? 12/05/22 MR#: [id number] Acct: [id number] Name:PREMA BENTON Rep #: [id number] : 1960 ? ? Provider: Dr. Jarvis Wallace, DO Age/Sex:? 62/F ? ? Location: [facility] [email or web address] Status: Signed Intake Intake Visit Reasons:?RIGHT HAND Chief Complaint: right hand Allergies chamomile flower Allergy (Verified 10/09/22 10:10) Upset StomachSulfa (Sulfonamide Antibiotics) Allergy (Verified 10/09/22 10:10) Hivescorn Adverse Reaction (Verified 10/09/22 10:10) Otherwheat Adverse Reaction (Verified 10/09/22 10:10) Other Medications lamotrigine 200 mg tablet 200 mg PO QHS 02/20/14 [History Confirmed 12/05/22] loratadine 10 mg tablet 10 mg PO QHS 02/20/14 [History Confirmed 12/05/22] losartan 50 mg-hydrochlorothiazide 12.5 mg tablet 0.5 tab PO QHS 02/20/14 [History Confirmed 12/05/22] quetiapine 200 mg tablet 200 mg PO QHS 02/20/14 [History Confirmed 12/05/22] alprazolam 0.5 mg tablet 0.5 mg PO DAILY 06/30/20 [History Confirmed 12/05/22] atorvastatin 40 mg tablet 40 mg PO QHS 06/30/20 [History Confirmed 12/05/22] cholecalciferol (vitamin D3) 25 mcg (1,000 unit) tablet 1,000 unit PO DAILY 06/30/20 [History Confirmed 12/05/22] sertraline 100 mg tablet 100 mg PO DAILY 10/20/20 [History Confirmed 12/05/22] naproxen sodium 220 mg tablet (Flanax (naproxen)) 220 mg PO Q8H PRN Pain 05/21/22 [History Confirmed 12/05/22] polyethylene glycol 3350 17 gram oral powder packet (Miralax) 17 g PO DAILY 07/10/22 [History Confirmed 12/05/22] doxycycline hyclate 100 mg tablet,delayed release 100 mg PO BID 10/09/22 [History Confirmed 12/05/22] PFSH Medical History?(Updated 10/09/22 @ 10:24 by Soraya Heart) Alcohol use Anxiety BiPAP (biphasic positive airway pressure) dependence Bipolar disorder Bipolar disorder Bone fracture Carpal tunnel syndrome, bilateral CPAP/BiPAP (continuous or biphasic positive airway pressure) dependent High blood pressure High cholesterol History of emotional problems Non-smoker Panic disorder Psychiatric care Seasonal allergies Sleep apnea Vision problems Wears glasses Surgical History? History of carpal tunnel surgery of left wrist History of colonoscopy History of hysterectomy Family History? Mother HypertensionFather Hypertension Pancreatic cancer Shingles Social History? Smoking Status:? Never smoker alcohol intake:? current alcohol intake frequency: a few times a week Alcohol type: wine substance use type:? does not use HPI RIGHT HAND Details: Parts of this documentation were recorded by a scribe, this documentation accurately reflects the service provided and the decisions made by me, Dr. Jarvis Wallace, DO 12/05/22 0593. PREMA CID is a 62 year old F here today for? right carpal tunnel syndrome. SHe is here becuase her surgery for her right CTR was canceled in 09/2022 d/t a rectal abcess. This abcess has since healed and Dr. Mane has cleared her for surgery so she wishes to be put back on the surgery schedule. She states that she doesnt have any sensation of the right hand. She has numbness and tingling of the 1st through 4th digits and she is requesting to have the right carpal tunnel released next. Ortho Exam General General: Yes no acute distress Neurologic: Yes alert and Yes oriented x3 Psychologic: Yes reasonable and appropriate Right Wrist/Hand Skin/Wound: Yes CDI, No Swelling, No Ecchymosis and Yes capillary refill normal Right Wrist: Yes Durken's Test, Tinel's and Phalen's WRIST: There is some atrophy of the thenar eminence Left Wrist/Hand Skin/Wound: No Swelling and No Ecchymosis WRIST: Healing nicely no concern for infection full finger range of motion no significant wrist limitations with motion Head: Normocephalic Atraumatic Chest: symmetrical rise, non-labored breathing, no audible wheeze Abdomen: no guarding, non-rigid Supplemental Info Supplemental Info: 05/07/2022 EMG bilateral upper extremity:This is an abnormal study. 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 No axonal continuity could be established to the right thenar muscles. These findings are compatible with the clinical diagnosis of carpal tunnel syndrome. In addition, there is electrophysiologic evidence of a superimposed, mild, chronic, C5/6 radiculopathy in the right upper extremity. ? Coding Level of Care Code Off vis,est,level 3 Diagnoses Right carpal tunnel syndrome? G56.01 Assessment and Plan Assessment and Plan (1) Right carpal tunnel syndrome: ?Status:?Acute Plan Patient educated that her EMG showed carpal tunnel syndrome showed end stage on the right along with electrophysiologic evidence of a superimposed, mild, chronic, C5/6 radiculopathy in the right upper extremity. Educated that treatment for this is do nothing or bracing or carpal tunnel release. Reviewed the pre-operative plans with the patient.? I explained with the advanced degree of entrapment seen on electrodiagnostic studies makes prognosis less likely to be a success and it may take longer to resolve symptoms? and may never resolve however the best chance to prevent worsening would be to release the transverse carpal ligament at this time in addition she may have overlapping symptoms from her neck as the EMG did show C5-C6 radiculopathy. ?Risks and benefits of the procedure were fully explained, including but not limited to infection, neurovascular injury, continued pain, arthritis, stiffness, need for further surgery, re-injury, DVT, PE, general risks of anesthesia, incisional hypersensitivity and pillar pain and loss of limb or life. The patient understands all the risks and does wish to proceed with written consent for right carpal tunnel release. Educated that she may still have radicular symptoms coming of the cervical spine after carpal tunnel release. She wishes to be placed back on the surgery schedule for a right carpal tunnel release. Follow up 2 weeks post op or sooner if pain, swelling, numbness or associated symptoms, or concerns develop.? All questions answered. Patient in agreement of plan. 12/05/22 1424 <Electronically signed by Jarvis Wallace DO> Date Jarvis Wallace DO Cosigner Signature: Date (if applicable) ? CC: ? ~ I have examined the patient and the H&P has been reviewed. There are no clinical changes since date of exam.
[2022-12-21] MEDS: Cefazolin 2 GM in 0.9% Normal Saline 100 ML IV (08:43)
[2022-12-21] MEDS: Lidocaine 1% /Epi 1:100 (50ml) 50 ML VIAL (09:09)
--- NOTE | 2022-12-21 09:14 | DCINST_ITS ---
Discharge Instructions Dressing / Incision Call your doctor if you observe: Shortness of breath and Chest pain Additional Dressing/Incision Instructions:: Ice and elevate operative extremity next 72 hours. Keep dressing on clean and dry for 48 hours then may remove and allow warm soapy water to rinse over incision but do not submerge until sutures are out. Then apply bandaid over incision and change daily. encourage finger range of motion. Not lift more than 1/2 pound. Minimize narcotic use only as needed and directed, may use OTC NSAID and Tylenol to supplement/substitute for pain control. Follow Up Care Please Follow Up With: Jarvis Wallace DO When: 2 weeks Test Results: Test results from this visit will be discussed in further detail at your follow- up appointment, if applicable. Discharge Plan Admission Primary Reason for Your Visit: Right carpal tunnel release Attending Provider: Jarvis Wallace Primary Care Provider: Tristan Mane Chi Discharge Orders/Prescriptions Prescriptions: New oxycodone 5 mg tablet 2.5 - 5 mg PO Q4H PRN (Reason: pain) 5 Days Qty: 7 0RF No Action naproxen sodium [Flanax (naproxen)] 220 mg tablet 220 mg PO Q8H PRN (Reason: Pain) lamotrigine 200 MG tablet 200 mg PO QHS quetiapine 200 MG tablet 200 mg PO QHS losartan-hydrochlorothiazide 1 EACH tablet 0.5 tab PO QHS loratadine 10 MG tablet 10 mg PO QHS sertraline 100 mg tablet 100 mg PO DAILY atorvastatin 40 MG tablet 40 mg PO QHS alprazolam 0.5 MG tablet 0.5 mg PO DAILY cholecalciferol (vitamin D3) 1,000 UNIT tablet 1,000 unit PO DAILY polyethylene glycol 3350 [Miralax] 17 gram Powder In Packet 17 g PO DAILY Referrals / Follow Up: Tristan Mane Chi, MD [Primary Care Provider] - Disposition Disposition (needs filled in before D/C Order can be placed): Home, Self Care
--- NOTE | 2022-12-21 09:14 | OP.PCM_ITS ---
Operative Report Date of Procedure: 12/21/22 Preoperative diagnosis; right carpal tunnel syndrome Postoperative diagnosis; same Procedure: Right open carpal tunnel release Anesthesia: Local with MAC Tourniquet time; 12 minutes 250 mm Hg Complications: None Indication for procedure; This is a 62-year-old female with long-standing s ymptoms consistent with carpal tunnel syndrome the patient did have electrodiagnostic evidence of this and has failed conservative treatment. Risks benefits and alternatives were reviewed including risks of bleeding infection nerve artery tissue damage need for further surgery and continued pain and symptoms, hypersensitivity to scar and Pillar pain. Procedure; The patient was met in the preoperative holding area the operative extremity was identified by both patient and physician and was marked the patient was met by anesthesia and brought back to the operating room and transferred to the operating table in the supine position. Anesthesia was started. A well-padded tourniquet was placed on the operative upper extremity. The patient was prepped and draped in the usual sterile fashion. A timeout was called to ensure the proper patient procedure and extremity were being contemplated. 0.5 percent lidocaine with epinephrine was injected into the incisional area. An Esmarch was used to exsanguinate the extremity. The tourniquet was inflated to 250 mmHg. A midline incision was made with a 15 blade scalpel between the thenar and hypothenar eminence. This was carried down through the skin and subcutaneous tissue. Lambert retractors were then used, a deep blade scalpel was used to make a deep incision in the palmar aponeurosis. The lambert retractors were then placed deep to this and the transverse carpal ligament was identified a perforation was made with a scalpel and a Littler scissors were used to complete the release of the transverse carpal ligament distally under direct visualization with the tips facing ulnarly until the perivascular fat was reached. Then turning our attention proximally using a tension slide technique the proximal extent of the transverse carpal ligament was released . There was noted to be hourglass configuration to the median nerve and hypertrophy of the transverse carpal ligament without other findings. The wound was thoroughly irrigated and was closed with 4-0 nylon vertical mattress stitches. Dressing was applied in the form of xeroform 4 x 4, web roll and an laney wrap. Tourniquet was let down there is no intraoperative complications patient tolerated the procedure well and was transferred to the PACU. All counts were correct.
== END 2022-12-21 10:33 | disposition home or self-care (01) ==
LOC: SDC 07:13 → AC 07:14
PROVIDERS: PCP Family Medicine Geriatric Medicine; Referring Provider Orthopaedic Surgery; Visit Provider Orthopaedic Surgery
PROC: (CPT 64721; principal; 2022-12-21 08:50)
DX: G56.01 Carpal tunnel syndrome, right upper limb (principal); F31.9 Bipolar disorder, unspecified; I10 Essential (primary) hypertension; E78.00 Pure hypercholesterolemia, unspecified; G47.33 Obstructive sleep apnea (adult) (pediatric); Z79.899 Other long term (current) drug therapy
CPT/HCPCS: 64721; 01810; J7120

== ENCOUNTER → 2023-04-29 | Outpatient (CLI) | payer MEDICARE, MEDICAID, SELFPAY ==
[2016-01-04 12:56] VITALS: BMI 24.3
--- NOTE | 2023-04-29 15:54 | RAD_ITS ---
EXAM: XR CERVICAL SPINE, 4 OR 5 VIEWS CLINICAL INDICATION: NECK PAIN TECHNIQUE: Frontal, lateral and bilateral oblique views of the cervical spine. COMPARISON: CT after fall January 12, 2015 report provided and images provided FINDINGS: VERTEBRAE: Mild reversal of the usual lordotic curvature similar to prior exam. Hypertrophic changes at multiple facet joints. Preserved vertebral body height. No acute fracture. No spondylolisthesis. DISC SPACES: Marked disc space narrowing at C3-C7 on the lateral view, with prominent anterior osteophytes at C3-C7. SOFT TISSUES: Unremarkable. No prevertebral soft tissue swelling. LUNG APICES: Clear. RAD/Cerv Spine 2 or 3 Views IMPRESSION: Moderate multilevel degenerative changes. No convincing acute posttraumatic abnormality. Electronically Signed: Dayanna See MD at 8:26 EDT ,
--- NOTE | 2023-04-29 16:00 | RAD_ITS ---
EXAM: XR LEFT SHOULDER COMPLETE, 2 OR MORE VIEWS CLINICAL INDICATION: L SHOULDER PAIN TECHNIQUE: 4 views of the left shoulder. COMPARISON: No relevant prior studies available. FINDINGS: BONES/JOINTS: Prominently inferiorly projecting osteophytes at the left femoral head-neck margin best seen on the frontal view. Mildly sclerotic margins of the glenoid articular surface. No evidence of fracture or dislocation. Intact AC joint. Intact upper-mid left ribs. Unremarkable left upper lung. SOFT TISSUES: Unremarkable. No soft tissue swelling or gas. No radiopaque foreign body. RAD/Shoulder min 2 Views IMPRESSION: Degenerative changes of the left shoulder. No acute abnormality. Electronically Signed: Dayanna See MD at 8:29 EDT ,
== END | disposition home or self-care (01) ==
LOC: RAD 15:48
PROVIDERS: PCP Family Medicine Geriatric Medicine; Referring Provider Family Medicine Geriatric Medicine; Visit Provider Family Medicine Geriatric Medicine
DX: M25.512 Pain in left shoulder (principal); M54.2 Cervicalgia
CPT/HCPCS: 72040; 73030

== ENCOUNTER → 2023-06-05 | Outpatient (CLI) | payer MEDICARE, MEDICAID, SELFPAY ==
[2016-01-04 12:56] VITALS: BMI 24.3
--- NOTE | 2023-06-05 09:15 | MRI_ITS ---
STUDY: MRI CERVICAL SPINE WITHOUT CONTRAST REASON FOR EXAM: Female, 62 years old. RADICULOPATHY. C/O NECK CRICK ON LEFT SIDE, BILATERAL SHOULDER NUMBNESS. TECHNIQUE: Standardized fat and water weighted pulse sequences were obtained in the sagittal and axial planes. COMPARISON: CT cervical spine without contrast 11/12/2014. FINDINGS: Normal foramen magnum and brainstem-cervical cord junction. Normal craniovertebral junction. Normal anterior atlantoaxial articulation. Normal odontoid process. Moderate cervical kyphosis. No recent or remote fractures of the cervical spine and no malalignment. C2-3: Normal endplates. Normal disc height, signal and morphology. Normal central canal and intervertebral neural foramina. Ankylosis of the left C2-C3 facet joint is unchanged. C3-4: Minimal endplate sclerosis with anterior marginal spurs. Mild disc space height narrowing. Prominent midline ventral extradural has increased in size. This is causing mild posterior displacement and flattening deformity of the cervical spinal cord and pronounced central canal stenosis. The AP canal diameter of the central canal is 4 mm. Pronounced left degenerative facet arthropathy is a new finding. Mild right degenerative facet arthropathy is also a new finding. Pronounced stenosis of the left intervertebral neural foramen. Mild stenosis of the right intervertebral neural foramen. C4-5: Minimal endplate sclerosis. Pronounced disc space height narrowing. Mild ventral epidural defect due to posterior marginal spurs. Mild central canal stenosis with an AP canal diameter of 6.7 mm. Moderate stenosis of the intervertebral neural foramina due to osteophytes arising from the uncovertebral joints. C5-6: Mild endplate sclerosis. Pronounced disc space height narrowing. Normal central canal and left intervertebral neural foramen. Moderate stenosis of the right intervertebral neural foramen due to osteophytes arising from the right uncovertebral joint. C6-7: Normal endplates. Mild disc space height narrowing. Mild ventral extradural defect due to posterior bulging annulus. Normal central canal and intervertebral neural foramina. C7-T1: Normal endplates. Pronounced disc space height narrowing. Normal central canal. Mild stenosis of the intervertebral neural foramina due to osteophytes arising from the uncovertebral joints. T1-T2, T2-T3 and T3-T4: (Sagittal only). Normal endplates. Normal disc height and morphology. Normal central canal and intervertebral neural foramina. Atrophy of the cervical spinal cord with intrinsic signal abnormality at the C3-C4 disc space level down to the lower C4 vertebral body level due to severe central canal stenosis and chronic cord compression. Normal upper thoracic spinal cord. Normal remainder of the cervical spinal cord. Normal included portions of the brainstem and cerebellum. Normal visualized soft tissue structures. MRI/Spine Cervical (Routine) IMPRESSION: 1. Increased size of C3-C4 posterior midline ventral extradural causing posterior displacement and flattening of the cervical spinal cord and pronounced central canal stenosis. This is suspicious for disc protrusion. There is cervical spinal cord atrophy at this level with intrinsic signal abnormality due to myelomalacia from chronic cord compression. Additionally, pronounced stenosis of the left C3-C4 intervertebral neural foramen due to pronounced left degenerative facet arthropathy. These are new findings when compared to CT cervical spine of 11/12/2014. 2. Mild central canal stenosis at C4-C5 disc space level and moderate stenosis of the intervertebral neural foramina due to osteophytes arising from the uncovertebral. These have increased since 11/12/2014. 3. Moderate stenosis of the right C5-C6 intervertebral neural foramen due to osteophytes arising from the right uncovertebral joint, previously mild stenosis. 4. Small C6-C7 posterior bulging annulus. 5. No MRI evidence of cervical extruded disc fragment. Electronically Signed: Bud Chapin MD at 14:20 EDT ,
== END | disposition home or self-care (01) ==
LOC: MRI 09:04
PROVIDERS: PCP Family Medicine Geriatric Medicine; Referring Provider Family Medicine Geriatric Medicine; Visit Provider Family Medicine Geriatric Medicine
DX: M54.12 Radiculopathy, cervical region (principal)
CPT/HCPCS: 72141

== ENCOUNTER 2023-06-06 12:11 | Outpatient (RCR) | payer MEDICARE, MEDICAID, SELFPAY ==
[2016-01-04 12:56] VITALS: BMI 24.3
--- NOTE | 2023-06-07 09:01 | HP.PTEVAL ---
Patient's Visit Information Visit Information Visit Information: PREMA CID is a 62 year old F referred to Physical Therapy by Dr. Mt Cadet MD with a diagnosis of Neck Pain and Arm Pain. Date of Evaluation: 06/06/23 Physical Therapist: Pamela Dunham DPT Visit Plan Frequency: 2x /Week Duration: 4 Weeks Plan: Focus on UE and scapular strength/stabilization- no traction- ultrasound PRN. HEP Given IE: Postural correction, scapular retraction, bilateral ER Subjective Subjective: Patient reports that she has compression discs in her cervical spine and possible issues with the left shoulder. This has been creeping up on her for awhile but she did not know how bad it was until she got medication. The crick in the neck became a serious problem in February of 2022. Last year she had carpal tunnel surgery and this year they looked at her cervical spine. She had an x-ray and an MRI. Dr. Mane ordered the MRI which the results are in the chart. Currently she is having right hand numbness and weakness and stiffness in the right shoulder- the left hand has more function- but the left shoulder is more painful. She takes Naproxen 2x a day. She has to look at her hand to make sure has it in her hands because she can't newspaper correspondent it. She reports the pain is more achy. Worst: 5-6/10 Best: 5/10 Agg: lifting Eases: rest. Sleeping: not disturbed- she takes medications to help her sleep. Left Hand Dominate. She does not have blurred vision or dizziness. She does not have ESCALERA. She is still able to perform ADL's they just take her a little bit longer. PMHx/Meds: see list in chart. Objective Objective: Posture: Forward head, rounded shoulders- can correct with verbal cues but does not maintain throughout tx session Gait: no deviation noted- good arm swing and trunk rotation Palpation: tender along upper trap from occiput to top of acromion- levator insertion- medial border of the scapula- infraspinatus- supraspinatus, bicipital groove- suboccipitals to the CT junction- cervical paraspinals ROM: WFL in all planes of the cervical spine with discomfort and dizziness with SB and rotation bilateral and reports tightness- left SB was reported worst pain. Shoulder: WFL with pain- end range IR behind the back and abduction.- Increased crepetis with all left shoulder motions Strength: Scap: fair minus, Cervical Isometric: 4+/5, Shoulder: Flexion: 4-/5, Abd: 4/5, IR: 4/5, ER: 4/5, Ext: 4+/5, Add: 4-/5, Elbow: 5/5, Senior Teller: Right: 40 Left: 40 Sensation: WNL to gross touch Special Test: Distraction: did not change s/s- Compression: did not change s/s Special Tests R Shoulder Empty Can - SS: Negative R Shoulder Neer - Impingement: Positive R Shoulder Lane Emanuel - Impingement: Positive L Shoulder Empty Can - SS: Positive L Shoulder Belly Press - SupScap: Positive L Shoulder Neer - Impingement: Positive L Shoulder Lane Emanuel - Impingement: Positive Balance/Special Test Scores Oswestry Neck Score: 16 Goals Goal 1:: Patient will report participation in home exercise program activities a minimum of 5 days per week, as adjunct to skilled physical therapy intervention in preparation for independent home management upon discharge. Goal Time Frame: 4-6 Weeks Goal 2:: Patient will report an decrease of 12% of Oswestry Neck to show minimal clinical significant difference on patients functional outcome measure. Goal Time Frame: 4-6 Weeks Goal 3:: Patient will maintain proper posture t/o tx session to demo increased scapular s/s to ease ADL's. Goal Time Frame: 4-6 Weeks Goal 4:: Patient will demo full cervical ROM without pain for 1 week to ease ADL's. Goal Time Frame: 4-6 Weeks Goal 5:: Patient will report no dropping objects for 1 week to ease ADL's Goal Time Frame: 4-6 Weeks Rehabilitation Potential Physical Therapy Diagnosis: Patient presents with hypomobility- she has decreased pain free ROM, scapular and UE strength/stabilization and muscular endurance leading to poor posture and increased pain with ADL's. Rehabilitation Potential: Fair Anticipated Interventions Therapeutic Exercise to Include: Strength training, Balance training, Agility training, Body mechanics, Postural training, Flexibilty training, Neuromotor development, Dynamic Lumbar Stabilization and Scapular Strength/Stabilization For the Purpose of:: To improve muscle performance and motor function TENS: Yes Cryotherapy (ice pack, ice massage): Yes Thermo therapy (hot pack): Yes Ultrasound (thermal/non thermal): Yes For the Purpose of:: To improve muscle performance and motor function Text: Thank you for the opportunity to evaluate your patient. For Medicare and Medicare HMO plans, please review the plan of care and approve it. It will need to be FAXED BACK to us at [phone] for Medicare purposes. For Medicare only, by signing this I certify the plan of care. Please let me know if there are questions or concerns regarding this plan of care. Physician Signature: Date:
--- NOTE | 2023-08-15 08:25 | HP.PT.NRP ---
Patient Information Patient Information: PREMA CID was seen in my office for initial evaluation on 06/06/23. The following Plan of Care was established for this patient: POC Established Initial Frequency: 2x /Week Initial Duration: 4 Weeks Anticipated Interventions Therapeutic Exercise to Include: Strength training, Balance training, Agility training, Body mechanics, Postural training, Flexibilty training, Neuromotor development, Dynamic Lumbar Stabilization and Scapular Strength/Stabilization For the Purpose of:: To improve muscle performance and motor function TENS: Yes Cryotherapy (ice pack, ice massage): Yes Thermo therapy (hot pack): Yes Ultrasound (thermal/non thermal): Yes For the Purpose of:: To improve muscle performance and motor function Last Seen Last Seen: This patient was last seen in our office . Pertinent comments regarding their Physical therapy will appear below: Patient has not attended since initial evaluation and is appropriate to be d/c At this point I will be discontinuing this patient from physical therapy. I would be happy to see this patient again in the future if found appropriate by the physician. Thank you! Pamela Dunham, DOREENT Balance/Gait/Functional tests Balance/Special Test Scores Oswestry Neck Score: 16
== END 2023-06-06 19:00 | disposition home or self-care (01) ==
LOC: PT 12:11
PROVIDERS: PCP Family Medicine Geriatric Medicine; Referring Provider Anesthesiology; Visit Provider Anesthesiology
DX: M54.2 Cervicalgia (principal); M79.603 Pain in arm, unspecified
CPT/HCPCS: 97162

== ENCOUNTER → 2023-06-20 | Outpatient (CLI) | payer MEDICARE, MEDICAID, SELFPAY ==
[2016-01-04 12:56] VITALS: BMI 24.3
[2023-06-20 17:47] LABS: Absolute Lymphocyte Count 0.91 X10^3/uL (0.83-4.51); Absolute Neutrophil Count 2.6 X10^3/uL (2.0-7.7); Basophil# 0.05 X10^3/uL; Basophil% 1.2 % (0-1); Eosinophil# 0.36 X10^3/uL; Eosinophils% 8.6 % (0-5); Hemoglobin 11.9 g/dL (12.0-15.0); Lymphocyte # 0.91 X10^3/ul (0.83-4.51); Lymphocyte % 21.7 % (19-41); Mean Corp Hgb Conc 33.1 g/dL (32-36); Mean Corpuscular Hgb 30.4 pg (27.0-32.0); Mean Corpuscular Volume 91.8 fL (81-99); Mean Platelet Vol. 9.7 fl (6.2-12.0); Monocyte# 0.29 X10^3/uL; Monocyte% 6.9 % (0-10); NRBC Flagged by Analyzer 0 % (0-5); Neutrophil # 2.57 X10^3/uL (2.7-7.7); Neutrophil % 61.1 % (47-70); Platelet Count 282 K/mm3 (150-450); RBC Distribution Width CV 13.4 % (11.6-14.6); RBC Distribution Width SD 45.5 fl (35.1-43.9); Red Blood Count 3.92 M/mm3 (4.2-5.4); White Blood Count 4.2 K/mm3 (4.4-11.0)
[2023-06-20 18:15] LABS: ALB/GLOB Ratio 1.8 RATIO (0.9-2.4); AST(SGOT) 36 U/L (15-37); Alanine Aminotransfer ALT/SGPT 54 U/L (13-56); Albumin, Serum 4.5 g/dL (3.2-5.0); Alkaline Phosphatase 79 U/L (45-117); Anion Gap 8 (5-15); BUN 15 mg/dL (7-18); BUN/Creat Ratio 16.2 RATIO (10-20); Calcium,Total 9.3 mg/dL (8.5-10.1); Chloride 104 mmol/L (98-107); Creatinine, Serum 0.92 mg/dL (0.55-1.02); EST Glomerular Filtration Rate 65 mL/min (>60); Est Glom Filt Rate - Afr Amer 79 mL/min (>60); Globulin 2.5 g/dL (2.2-4.2); Glucose 87 mg/dL (74-106); Potassium 3.9 mmol/L (3.5-5.1); Sodium Level 136 mmol/L (136-145)
== END | disposition home or self-care (01) ==
LOC: POLAB3 16:46
PROVIDERS: PCP Family Medicine Geriatric Medicine; Visit Provider Family Medicine Geriatric Medicine
DX: I10 Essential (primary) hypertension (principal)
CPT/HCPCS: 36415; 80053; 85025

== ENCOUNTER → 2023-06-24 | Outpatient (CLI) | payer MEDICARE, MEDICAID, SELFPAY ==
[2016-01-04 12:56] VITALS: BMI 24.3
[2023-06-24 15:51] LABS: Partial Thromboplast Time 26.6 Seconds (24.1-36.2); Prothrombin Time (Protime)PT. 12.6 SECONDS (11.7-14.9)
== END | disposition home or self-care (01) ==
LOC: POLAB3 14:53
PROVIDERS: PCP Family Medicine Geriatric Medicine; Visit Provider Family Medicine Geriatric Medicine
DX: I10 Essential (primary) hypertension (principal)
CPT/HCPCS: 85610; 85730

== ENCOUNTER 2023-07-03 10:10 | Inpatient (IN) | payer MEDICARE, MEDICAID, SELFPAY ==
[2016-01-04 12:56] VITALS: BMI 24.3
--- NOTE | 2023-06-26 10:01 | CASEMGMT ---
Received tc from Dr. Thornton regarding pt upcoming surgery and plans to have pt to dc home after. He would like RN TAYLOR to contact pt to try to eliminate any barriers from this happening. ANUSHA VAZQUEZ Assessment: TC to pt for initial transition planning/care coordination assessment. ANUSHA VAZQUEZ introduced self and role at [facility], pt voices understanding and consents to assessment. Care providers, pharmacy, and demographics verified/updated. Admitting Dx: C3-5 ACDF PCP:Alhaji Specialists:Norberto, ortho; Rodrigo, ortho; Juliana Mancera pullewis; Zamzam, psych Preferred Pharmacy: [facility] Insurance: giftee, [employer] Prescription Benefit: yes LNOK: Rob Holly, brother; Maria Eugenia Mccarty, case management specialist from the counseling center Living Arrangements: Pt lives alone in a 3rd story apt with steps or an elevator to enter. Once in pt apt pt does not have any steps to maneuver. Pt reports she is able to bathe and dress herself indep and uses a cane for ambulation. Pt states her friend Zoya transports her to get groceries. Pt does her own meals and laundry. Discussed with pt the possibility of freezing some meals to have prepared ahead of time for easy access post surgery. Pt states she will do this. Pt denies any concerns at home. Transportation: Pt does not drive. Pt case management specialist provides transportation as well as pt friend Zoya or the [employer] bus. DME:[employer], 4 prong cane HHC/SNF: Pt denies hx of Pt states no concerns with going home at time of dc. She states her brother is coming from [place] and will stay in a hotel locally from a day prior to surgery until Saturday. TC to pt brother with her permission and he confirms this and the ability to assist pt as needed during this time. Pt also gave permission to call her case management specialist. TC to chelle Del Cid voicemail requesting a returned call to discuss any potential barriers she would be aware of post surgery for pt returning home. Pt states no further concerns/needs. She feels she is set up for this surgery. CM to follow. Advised pt to ask CM if any further question/concerns/needs arise once hospitalized, voices understanding. Pt Goal: Home with family, friend and case management specialist assistance Plan: Home with family, friend and case management specialist assistance pending therapy evals. Will follow for a FWW.
--- NOTE | 2023-07-01 08:27 | EKG12_ITS ---
Test Reason : PREOP Blood Pressure : / mmHG Vent. Rate : 079 BPM Atrial Rate : 079 BPM P-R Int : 182 ms QRS Dur : 090 ms QT Int : 382 ms P-R-T Axes : 053 015 078 degrees QTc Int : 438 ms Normal sinus rhythm Normal ECG Confirmed by DAVE FREEDMAN ([id number]), society editor EMILY LI ([id number]) on 07/01/2023 11:24:19 AM Referred By: MILY Confirmed By:DAVE FREEDMAN
[2023-07-01 10:02] LABS: Magnesium 2.3 mg/dL (1.6-2.6)
[2023-07-01 10:58] LABS: HIV - WCH Non-Reactive (Nonreactive); Hepatitis B Surface Antibody Non-Reactive; Hepatitis C Antibody Non-Reactive (Nonreactive)
[2023-07-02 06:08] LABS: Hepatitis A AB, Total Positive (Negative)
[2023-07-03] VITALS (21 sets, daily range): BP systolic 77–235; BP diastolic 16–150; PULSE 33–114; RESP 14–24; TEMP 36.1–37; O2SAT 6–100; BMI 28.6; BMI 31.2
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
[2023-07-03] MEDS: Lactated Ringers 1,000 ML 15 ML IV (11:13)
[2023-07-03] MEDS: Acetaminophen 500 MG Tablet 1000 MG PO (11:14)
[2023-07-03] MEDS: Magnesium 1 GM over 15 mins IV (11:14)
[2023-07-03] MEDS: dexAMETHasone 4 MG/ML Vial 8 MG IV (11:14)
[2023-07-03 11:30] LABS: Bedside Glucose 96 mg/dL (74-106)
[2023-07-03] MEDS: Cefazolin 2 GM in 0.9% Normal Saline (100mL Bag) 100 ML IV ×2 (13:25→23:03)
--- NOTE | 2023-07-03 13:41 | RAD_ITS ---
INDICATION: C3-5 ANTERIOR CERVICAL FUSION EXAMINATION/TECHNIQUE: X-RAY - 7 intraoperative fluoroscopic spot films COMPARISON: 06/25/2023 FINDINGS: 7 fluoroscopic spot films obtained intraoperatively during anterior cervical fusion with hardware C3-C5. Refer to operative report for details of the procedure. Total fluoroscopic time 19.1 seconds RAD/Cerv Spine 2 or 3 Views IMPRESSION: Anterior cervical fusion with hardware C3-C5. Electronically Signed: Bryce Barbosa MD at 18:23 EST ,
[2023-07-03] MEDS: TRANEXAMIC ACID 1,000 MG in 0.9% Normal Saline (100mL Bag) 100 ML 660 MG IV (16:26)
--- NOTE | 2023-07-03 17:38 | OP.PCM_ITS ---
Report of Operation Description of Surgical Findings:: Preoperative diagnosis: C3-5 disc degeneration with stenosis, cord compression Postoperative diagnosis: C3-5 disc degeneration with stenosis, cord compression Name of procedure: C3-5 anterior cervical discectomy and fusion with plate instrumentation - Anterior cervical fusion C3-4, CPT code 33396 - Anterior plate instrumentation C3-5, CPT code 63697/59 - Anterior cervical fusion C4-5, CPT code 13167/51 - Structural allograft bone with DBX, CPT code 86670 Attending surgeon: Bebo Thornton M.D. Anesthesia: Gen. endotracheal Estimated blood loss: 50 mL Complications: None Instrumentation used: Medtronic [place]da Elite plate, LASR corticocancellous block Indications: The patient is a pleasant 62-year-old lady who presented with neck pain, worsening difficulty with balance and dexterity. MRI showed C3-5 cord compression with myelomalacia. In order to halt the progression of myelopathy, the patient requested surgical treatment. All risks and benefits of the procedure were explained to the patient. The risks include but are not limited to infection, bleeding, injury to nerves and vessels, vertebral artery injury, spinal cord injury, paralysis, vocal cord paralysis, injury to esophagus, pseudoarthrosis, need for further procedures, adjacent segment degeneration. Procedure: The patient was identified in the preoperative suite using unique patient identifiers. Skin was marked consent was taken and all questions were answered. The patient was then brought back to the operative room and a timeout was performed. General endotracheal anesthesia was given. Intraoperative neuro monitoring leads were applied. The patient was carefully positioned supine on a regular OR table. A lateral view with a C-arm was done to identify the level and to define the incision. The anterior neck was then prepped and draped in the usual fashion. A final timeout was then performed. A transverse skin incision was taken to the left of midline. Subcutaneous tissue was then divided with Bovie. Platysma was identified and cut along the incision with scissors. The fascial interval between the sternocleidomastoid and the larynx was developed. Omohyoid was identified and retracted. The esophagus with the larynx was retracted medially to reach the prevertebral fascia. Marker x-ray was performed with bent spinal needle and disc space and levels were confirmed. Longus coli muscle was elevated on both sides at and above and below C3-5 discs. Self-retaining retractors were then placed. A long handle knife was then used to perform annulotomy at C3-4. Disc fragments were removed with the pituitary. Ainsworth pins were placed in C3 and C4 for disc distraction. Curettes and bur was utilized to remove cartilage from the endplates. Discectomy was performed laterally up to the uncovertebral joints. Posterior osteophytes were thinned down with the bur and adequate decompression in the central and foraminal areas were performed and PLL was thinned out. Once the disc space was prepared, trials of various sizes were utilized. Thorough irrigation was given. 7 mm LASR cortical cancellous allograft bone large footprint was then fashioned in such a way that concavities were burred out inferiorly and superiorly and half cc of DBX (demineralized bone matrix) was squeezed into the cancellous portion. The graft was then inserted into the C3-4 disc space. The retractors were then repositioned and the procedure was repeated for C4-5 disc with complete discectomy. Graft size was 6 mm at with large footprint at C4-5. The grafts were found to be in good apposition with good pullout strength. A 42 mm Medtronic Mont Ida Elite plate was then fixed to C3-5 with 16 mm screws. A lateral x-ray was then taken to check the length of the screws. Both AP and lateral x-rays showed good positioning of plate and screws. The locking mechanism over the screw heads was then turned. Thorough irrigation was again given. Hemostasis was achieved. A channel drain was then inserted. Closure was done with 3-0 Vicryl for the platysma and subcutaneous tissue layers and 4-0 Monocryl for the skin. Closure was done around the drain. Steri-Strips were applied and dressing was done with 4 x 4 gauze and Tegaderm. A cervical collar was then applied. The patient was then woken up from anesthesia extubated and taken to PACU in stable condition. From here, the patient will be transitioned to the floor. Intraoperative neuro monitoring was performed throughout this procedure. Motor evoked potentials were run periodically. All potentials remained at baseline throughout the procedure. I was present for the entire surgery and performed the surgery myself. Admit VTE Documentation VTE Mechan Device Prophylaxis: SCD's Reason prophylaxis not ordered:: Treatment Not Indicated Procedures Musculoskeletal [id number]: Other Procedure See Report
[2023-07-03] MEDS: Albuterol 2.5 MG/3 ML VIAL.NEB. INHALATION (17:57)
[2023-07-03] MEDS: Lactated Ringers 1,000 ML 100 ML IV ×2 (18:40→22:34)
--- NOTE | 2023-07-03 19:25 | SUR.PHASEI ---
I WAS DOCUMENTING PATIENT'S DISCHARGE WHEN DR. DUNCAN ARRIVED IN PACU TO CHECK ON THE PATIENT. THE PATIENT STARTED TO COUGH PROFUSELY AND SAID THAT SHE COULDN'T BREATHE. AT THAT TIME PATIENT'S SPO2 WAS 94% ON 4 LITERS. SHE CONTINUED TO COUGH, SO SUCTION WAS SET UP AND DR. DUNCAN SUCTIONED HER. SHE WAS STILL VERBAL AND STATED SHE COULDN'T BREATHE. SHE SAID SOMETHING ABOUT HISTAMINE AND ALLERGY SO DR. DUNCAN SAID TO PULL SOME BENEDRYL HE VERBALLY TOLD THIS NURSE TO PULL UP 25MG OF BENEDRYL AND GIVE IV. AT THIS POINT PATIENT'S SATS WERE STARTING TO DROP SO DR. DUNCAN SAID TO CALL O.R. STAFF BACK. HE WENT TO GET INTUBATION STUFF. RN'S SONIA COLE AND ZAHRA ARRIVED AT THE BEDSIDE. ALDO PARRISH WAS CALLED. KELSEY STARTED BAGGING PATIENT AND GENTRY ROBLES WAS FIRST TO ARRIVE AT BEDSIDE. SHE RESUMED BAGGING WHILE DR. DUNCAN GOT READY TO INTUBATE. DR. AMATO, RACIEL RN, ALSO ARRIVED AT BEDSIDE. DR. DUNCAN INTUBATED AND PATIENT PRETTY MUCH HAD ROSC AFTER PATIENT INTUBATED. RACIEL TAVARES PLACED ANOTHER IV IN HER LEFT ARM. GENTRY CONTINUED TO BAG PATIENT. 1953 AFTER INTUBATION, HR 39, BP 190/73. 1955 HR 110, 83% SP02, BP 235/110. 1957 HR 103, SPO2 100%, BP 246/114. 1999 HR 107, SPO2 100%, BP 237/118. 2001 HR 108, SPO2 100 %, BP 219/104. 2003 HR 107, SPO2 100%, BP 219/104. DR AMATO TOLD RACIEL TAVARES ICU NURSE TO GIVE 20 MG LABATALOL. VITALS AFTER THAT AT 2003 WERE HR 107, SPO2 100%, BP 149/86. 2005 HR 90, SPO2 100% AND BP 137/80. CBC/ CMP ORDERED AND DRAWN BY RACIEL TAVARES. ABG'S WERE DRAWN BY DR. AMATO AND SENT. DR AMATO GAVE THIS NURSE A VERBAL ORDER FOR A CAT SCAN OF SOFT TISSUE IN HER NECK. PROPOFOL DRIP INITIATED BY RACIEL TAVARES. PATIENT WAS PACKAGED UP WITH INDUSTRIAL HYGIENE MANAGER, ATTACHED TO DEFIBRILLATOR, BEING BAGGED BY GENTRY ROBLES, AND ACCOMPANIED BY MYSELF AND RACIEL TAVARES TO CAT SCAN. PATIENT WAS STABLE WHEN WE ARRIVED IN CAT SCAN. SHE STARTED TO COUGH SO RACIEL TAVARES INCREASED HER PROPOFOL DRIP AND SUCTIONED HER PRIOR TO HER BEING MOVED TO CAT SCAN TABLE. PAIIENT MOVED TO CAT SCAN TABLE BY MULTIPLE CT STAFF. PATIENT MOVED BACK TO BED. VITALS STABLE PRIOR TO BEING TRANSPORTED TO ICU BY THIS NURSE, GENTRY ROBLES BAGGING AND RACIEL TAVARES. ARRIVED IN ICU. MULTIPLE STAFF MEMBERS FROM ICU AT BEDSIDE HELPED MOVE PATIENT OVER TO ICU BED. ROMAT CLIENT SERVICE CONSULTANT AT BEDSIDE AND HOOKED PATIENT UP TO VENTILATOR AND CARE CONTINUED BY RACIEL TAVARES.
--- NOTE | 2023-07-03 19:59 | CT_ITS ---
INDICATION: Hematoma post cervical fusion surgery EXAMINATION: CT NECK - CT Soft Tissue Neck W/O Contrast Injection TECHNIQUE: Multiple axial images were obtained of the neck. A radiation dose optimization technique was used for this scan. IV Contrast dosage and agent: None. COMPARISON: MRI cervical spine 06/05/2023, CT cervical spine 11/12/2014 FINDINGS: NASOPHARYNX: Patient intubated. Retropharyngeal hematoma extends 12 cm from the level of the odontoid to the level of C7 measures 3.6 x 6.4 cm in greatest cross-sectional dimension at the level of the larynx and is situated to left of midline with anterior displacement of the esophagus and endotracheal tube. SUPRAHYOID NECK: Retroperitoneal hematoma extends throughout the suprahyoid neck obscuring soft tissue details. Small amount of subcutaneous emphysema. INFRAHYOID NECK: Retroperitoneal hematoma extends caudally to the level of C7. Subcutaneous emphysema present anteriorly and on the left. Larynx and subglottic airway patent. Percutaneous surgical drain placed into the periphery of the hematoma on the left at the level of the larynx. THYROID: No focal lesions. SALIVARY GLANDS: Unremarkable. LYMPH NODES: No cervical or supraclavicular lymphadenopathy. VASCULAR STRUCTURES: Not evaluated without contrast. VISUALIZED PORTIONS OF THE ORBITS, PARANASAL SINUSES, MASTOID AIR CELLS AND SKULL BASE: Unremarkable. BONES: Degenerative changes. Hardware present from ACDF C3-C5. THORACIC INLET: Bilateral infiltrates in the apices. CT/Soft Tissue Neck without Contr IMPRESSION: Postoperative retropharyngeal hematoma from the odontoid to the level of C7 as above. The epicenter is to the left of midline but the hematoma across the midline displacing the midline structures anteriorly. Postsurgical changes from ACDF C3-C5. Biapical infiltrates. Electronically Signed: Bryce Barbosa MD at 21:28 EST ,
[2023-07-03 20:09] LABS: Allen Test Positive; Base Excess -9 mmol/L (-2 to +2); Blood Gas Specimen Type ART; Mode Not entered; O2 Delivery Device Bagging; PO2 105 mmHG (75-100); SITE R Radial; SO2 93 % (95-99); Total Carbon Dioxide 26 mmol/L; pCO2 97.9 mmHg (35-45); pH 6.98 (7.35-7.45)
[2023-07-03 20:15] LABS: Hematocrit 37.2 % (37-47); Hemoglobin 12.2 g/dL (12.0-15.0); Mean Corp Hgb Conc 32.8 g/dL (32-36); Mean Corpuscular Hgb 31.2 pg (27.0-32.0); Mean Corpuscular Volume 95.1 fL (81-99); Mean Platelet Vol. 9.3 fl (6.2-12.0); Platelet Count 332 K/mm3 (150-450); RBC Distribution Width CV 13.1 % (11.6-14.6); RBC Distribution Width SD 45.7 fl (35.1-43.9); Red Blood Count 3.91 M/mm3 (4.2-5.4); White Blood Count 16.1 K/mm3 (4.4-11.0)
[2023-07-03] MEDS: Propofol 10MG/Ml 1,000 MG/100 ML Bottle 5.3 MG CONT INF (20:30)
[2023-07-03 20:31] LABS: ALB/GLOB Ratio 1.4 RATIO (0.9-2.4); AST(SGOT) 71 U/L (15-37); Alanine Aminotransfer ALT/SGPT 95 U/L (13-56); Albumin, Serum 3.7 g/dL (3.2-5.0); Alkaline Phosphatase 79 U/L (45-117); Anion Gap 8 (5-15); BUN 10 mg/dL (7-18); BUN/Creat Ratio 9.1 RATIO (10-20); Calcium,Total 8.1 mg/dL (8.5-10.1); Chloride 105 mmol/L (98-107); EST Glomerular Filtration Rate 53 mL/min (>60); Est Glom Filt Rate - Afr Amer 65 mL/min (>60); Estimated Creatinine Clearance 55.42 ml/min; Globulin 2.6 g/dL (2.2-4.2); Glucose 269 mg/dL (74-106); Potassium 3.9 mmol/L (3.5-5.1); Protein, Total 6.3 g/dL (6.4-8.2); Sodium Level 138 mmol/L (136-145)
--- NOTE | 2023-07-03 20:48 | PCM.PN.HOSP ---
Reason for Visit Reason for Visit: Cervical spine myelopathy C3-C5 Subjective Subjective Patient is a 62-year-old female who was admitted electively for an anterior cervical discectomy and fusion with plate instrumentation at C3-C5 with Dr. Velez. Procedure was done earlier today and ALDO PARRISH was called in PACU. Patient appears to have a had a respiratory arrest and was markedly hypercapnic post CPA. Unclear if she ever lost pulses. At the time of my arrival she was bradycardic with heart rates in the 30s but did have palpable pulse at bilateral femoral arteries. Heart rate did improve once intubated so I suspect if anything she was a PEA arrest. She did evidently have some postop bleeding and swelling anterior in the neck region so we will go ahead and obtain a CT of the soft tissue to rule out any obstruction. She will need to be admitted to the ICU for follow-up care. Objective Data Objective Data Vital Signs: Vital Signs Temp Pulse Resp BP Pulse Ox O2 Del Method O2 Flow Rate 97.0 F L 93 20 H 235/110 H 96 Nasal Cannula 4 07/03/23 19:26 07/03/23 19:26 07/03/23 19:26 07/03/23 19:54 07/03/23 19:26 07/03/23 19:26 07/03/23 19:26 Oxygen Flow Rate (L/min) 4 Oxygen Delivery Method Nasal Cannula Weight: 88 kg Body Mass Index (BMI) 28.6 Intake & Output: Intake and Output for Last 24 Hours 07/01/23 07/02/23 07/03/23 23:59 23:59 23:59 Intake Total 1220 / 1220 Output Total Balance 1200 / 1200 Lab / Micro Data 07/03/23 20:10 07/03/23 20:10 Labs: Laboratory Results - last 24 hr 07/03/23 11:04: POC Glucose 96 07/03/23 20:10: WBC 16.1 H, RBC 3.91 L, Hgb 12.2, Hct 37.2, MCV 95.1, MCH 31.2, MCHC 32.8, RDW Std Deviation 45.7 H, RDW Coeff of Wes 13.1, Plt Count 332, MPV 9.3, Sodium 138, Potassium 3.9, Chloride 105, Carbon Dioxide 25.0, Anion Gap 8, BUN 10, Creatinine 1.10 H, Estim Creat Clear Calc 55.42, Est GFR (MDRD) Af Amer 65, Est GFR (MDRD) Non-Af 53 L, BUN/Creatinine Ratio 9.1 L, Glucose 269 H, Calcium 8.1 L, Total Bilirubin 0.30, AST 71 H, ALT 95 H, Alkaline Phosphatase 79, Total Protein 6.3 L, Albumin 3.7, Globulin 2.6, Albumin/Globulin Ratio 1.4 Micro: Microbiology 07/01/23 08:46 Swab (Method) Nasal Screen MRSA/MSSA - Final ABG Data ABG results: ABG 07/03/23 20:04 Specimen Type ART Sample Site R Radial pH 6.98 L* Bicarbonate Actual 23.0 Total CO2 26 Base Excess -9 L O2 Saturation 93 L O2 % 15.0 ABG pCO2 97.9 H* ABG pO2 105 H Flex Test Positive O2 Delivery Device Bagging Vent Mode Not entered Crit Call To/Read Back Yes Blood Gas Notified Whom Anand Blood Gas Notified Time 20:05:33 Radiography Diagnostic Testing: Radiology Impression Cervical Spine X-Ray 07/03/23 13:41 IMPRESSION: Anterior cervical fusion with hardware C3-C5. Electronically Signed: Bryce Barbosa MD at 18:23 EST Reading Location ID and State: [facility] / [place] Tel , Service support , Physical Exam Const no apparent distress and well nourished; Negative for average body habitus or healthy appearing Constitutional Narrative: Overweight, upper middle-aged, white female, intubated and paralyzed with sedation running, currently appears comfortable, nontoxic appearing HEENT head/scalp atraumatic, moist oral mucous membranes and oropharynx normal HEENT Narrative: ET tube in place Neck Neck Narrative: Patient with Lex-Mancini drain in neck with serosanguineous drainage coming from area and anterior bandage with significant soft swelling in the area Resp normal respiratory effort, no retractions, no use of accessory muscles and clear to auscultation bilaterally Auscultation: Negative for rales, rhonchi or wheezes Cardio regular rate, regular rhythm, S1 normal heart sound, S2 normal heart sound, no murmurs, no rub, no gallops and no clicks GI normal to inspection, nondistended, normoactive bowel sounds, soft to palpation and non-tender Extremity no clubbing, cyanosis or edema Extremity Narrative: Pedal pulses are 2+ Neuro Neuro Narrative: Patient is intubated, paralyzed and sedated which makes neurological exam and possible however as she did start to wake up after intubation and paralytic wore off she seemed to be moving all extremities symmetrically Psych Psych Narrative: Unable to assess Assessment & Plan Assessment/Plan (1) Cardiopulmonary arrest: (2) Acute hypercapnic respiratory failure: (3) Leukocytosis: (4) Hyperglycemia: (5) Transaminitis: (6) Toxic metabolic encephalopathy: (7) Cervical myelopathy: PLAN: Plan Cardiopulmonary arrest -Occurred postoperatively in PACU -ROSC achieved after intubation however I am unclear whether she actually ever lost pulses -Upon my arrival she was bradycardic with a pulse and after intubation her heart rate improved -I was able to obtain an ABG shortly after intubation and her pH was 6.9 with a PCO2 of 97.9 -We will monitor postresuscitation labs closely -CT of the cervical soft tissues pending Acute hypercapnic respiratory failure in the immediate postoperative period -Patient has acute respiratory acidosis with pH was 6.9 with a PCO2 of 97.9 while being bagged shortly after intubation -Patient does not have history of sleep apnea and does wear BiPAP--> does not appear that she was extubated to BiPAP however -Intubated successfully in the PACU -ET tube with good placement -We will place OG for low intermittent suction and continue psych meds -Repeat ABG 1 hour after intubation -As needed albuterol aerosols -No signs of aspiration at this time however will monitor closely -Sedation with propofol -Mechanical ventilation ordered with read protocol -Suspect intubation should be short-term overall -CT of the cervical spine soft tissues is pending to rule out airway compression/obstruction due to postoperative complication/bleeding -Consult pulmonary critical care medicine -Discussed case with Dr. Mancera Leukocytosis -Suspect reactive -Repeat CBC in a.m. Toxic/metabolic encephalopathy -Related to hypercapnia -Should improved with time as she goes down her CO2 -Continue to monitor mental status Hyperglycemia -Patient has received Decadron postoperatively -Elevation is likely related to this and stress from CPA -Does not appear to take any medications for diabetes -We will continue to monitor and start sliding scale if blood sugars remained elevated Transaminitis -Mild when compared to previous -Suspect may be related to some shock liver versus medication induced postoperatively -We will repeat in a.m. History of bipolar disorder/panic disorder -Sedation while intubated -We will need home psychiatric medications via OG Hypertension/hyperlipidemia -Hold home statin -Hold home antihypertensives -As needed hydralazine for systolic pressure greater than 160 every 6 hours GERD -Continue PPI IV 40 daily MENG -Wears BiPAP at baseline -Per PACU nurse she does have her unit here -We will likely need extubated to BiPAP and will need to continue to use nocturnally and with naps while hospitalized Cervical myelopathy -Postop day 0 anterior cervical discectomy and fusion at C3-C5 -Management per primary service -PT/OT consultation for postextubation -As needed Dilaudid available for pain -As needed bowel regimen DVT prophylaxis -SCDs -Hold chemoprophylaxis due to recent cervical spine surgery CODE STATUS Full code Charges/Coding Procedures Hospitalists Procedures: 75935 Critial Care 1st Hr
--- NOTE | 2023-07-03 21:15 | RAD_ITS ---
INDICATION: ETT placement EXAMINATION/TECHNIQUE: X-RAY - portable semiupright AP chest x-ray COMPARISON: None. FINDINGS: LINES/DEVICES: Endotracheal tube tip 5 cm above the toan. Enteric tube coils within the stomach, tip not visible. Artifact from surgical drainage suction device projects over the left upper chest. LUNGS: Patchy bilateral airspace opacities without consolidation or pleural effusion. MEDIASTINUM AND CARDIOVASCULAR STRUCTURES: Cardiac silhouette within normal limits. BONES AND SOFT TISSUES: No acute changes. RAD/Chest 1 View (Portable) IMPRESSION: Support devices as above. Bilateral infiltrates suspicious for pneumonia. Electronically Signed: Bryce Barbosa MD at 21:53 EST ,
[2023-07-03 21:54] LABS: Base Excess -3 mmol/L (-2 to +2); Bicarbonate 22.6 mmol/L (22-26); Blood Gas Specimen Type ART; Mode AC; O2 Delivery Device Adult Vent; PEEP 5; PO2 87 mmHG (75-100); RR 14; SITE L Radial; SO2 96 % (95-99); Total Carbon Dioxide 24 mmol/L; pCO2 42.1 mmHg (35-45); pH 7.34 (7.35-7.45)
[2023-07-03 22:03] LABS: CPK Total, Creatine Kinase 233 U/L (26-192); Triglycerides 48 mg/dL
--- NOTE | 2023-07-03 22:03 | PCM.PN.ORT ---
Subjective Subjective Patient was recovering well in the PACU and was ready to go up stairs to the floor, however, at around 7:30 PM, she started to lose oxygen saturation and had bradycardia. She was immediately resuscitated by anesthesia and intubated. She was then placed on a ventilator and moved to the ICU. I evaluated the patient postoperatively at 6:30 PM when she was awake and conversing well without any discomfort or breathing difficulties. I was called at 8 PM and I came back to see her. She is in the ICU intubated on ventilator. I evaluated the surgical wound. Channel drain is continuing to hold suction with only minimal output. No obvious swelling or tense skin around anterior neck. Overall anterior neck appears soft on my exam. Patient has significant edema over the lips and eyes and the face. Objective Data Objective Data Vital Signs: Vital Signs Temp Pulse Resp BP Pulse Ox O2 Del Method O2 Flow Rate 97.0 F L 93 20 H 235/110 H 96 Nasal Cannula 4 07/03/23 19:26 07/03/23 19:26 07/03/23 19:26 07/03/23 19:54 07/03/23 19:26 07/03/23 19:26 07/03/23 19:26 Oxygen Flow Rate (L/min) 4 Oxygen Delivery Method Nasal Cannula Weight: 194 lb 0.108 oz Body Mass Index (BMI) 28.6 Intake & Output: Intake and Output for Last 24 Hours 07/01/23 07/02/23 07/03/23 23:59 23:59 23:59 Intake Total 1474.25 / 1474.25 Output Total Balance 1454.25 / 1454.25 Lab / Micro Data 07/03/23 20:10 07/03/23 20:10 Labs: Laboratory Results - last 24 hr 07/03/23 11:04: POC Glucose 96 07/03/23 20:10: WBC 16.1 H, RBC 3.91 L, Hgb 12.2, Hct 37.2, MCV 95.1, MCH 31.2, MCHC 32.8, RDW Std Deviation 45.7 H, RDW Coeff of Wes 13.1, Plt Count 332, MPV 9.3, Sodium 138, Potassium 3.9, Chloride 105, Carbon Dioxide 25.0, Anion Gap 8, BUN 10, Creatinine 1.10 H, Estim Creat Clear Calc 55.42, Est GFR (MDRD) Af Amer 65, Est GFR (MDRD) Non-Af 53 L, BUN/Creatinine Ratio 9.1 L, Glucose 269 H, Calcium 8.1 L, Total Bilirubin 0.30, AST 71 H, ALT 95 H, Alkaline Phosphatase 79, Total Creatine Kinase 233 H, Total Protein 6.3 L, Albumin 3.7, Globulin 2.6, Albumin/Globulin Ratio 1.4, Triglycerides 48 Micro: Microbiology 07/01/23 08:46 Swab (Method) Nasal Screen MRSA/MSSA - Final ABG Data ABG results: ABG 07/03/23 07/03/23 20:04 21:50 Specimen Type ART ART Sample Site R Radial L Radial pH 6.98 L* 7.34 L Bicarbonate Actual 23.0 22.6 Total CO2 26 24 Base Excess -9 L -3 L O2 Saturation 93 L 96 O2 % 15.0 70.0 ABG pCO2 97.9 H* 42.1 ABG pO2 105 H 87 Flex Test Positive N/A Respiration Rate 14 O2 Delivery Device Bagging Adult Vent Vent Mode Not entered AC Tidal Volume 450.0 POC PEEP 5 Crit Call To/Read Back Yes Blood Gas Notified Whom Anand Blood Gas Notified Time 20:05:33 Radiography Diagnostic Testing: Radiology Impression Cervical Spine X-Ray 07/03/23 13:41 IMPRESSION: Anterior cervical fusion with hardware C3-C5. Electronically Signed: Bryce Barbosa MD at 18:23 EST Reading Location ID and State: [facility] / [place] Tel , Service support , Soft Tissue Neck CT 07/03/23 19:59 IMPRESSION: Postoperative retropharyngeal hematoma from the odontoid to the level of C7 as above. The epicenter is to the left of midline but the hematoma across the midline displacing the midline structures anteriorly. Postsurgical changes from ACDF C3-C5. Biapical infiltrates. Electronically Signed: Bryce Barbosa MD at 21:28 EST Reading Location ID and State: [facility] / [place] Tel , Service support , Chest X-Ray 07/03/23 21:15 IMPRESSION: Support devices as above. Bilateral infiltrates suspicious for pneumonia. Electronically Signed: Bryce Barbosa MD at 21:53 EST , Assessment & Plan Assessment/Plan (1) Cardiopulmonary arrest: (2) S/P cervical spinal fusion: PLAN: Plan I went over the CT of the neck performed on emergent basis. There is significant edema and prevertebral swelling and also edema all around the endotracheal tube throughout the larynx. The CT has been reported as retropharyngeal hematoma, but it is unclear if this is profound edema versus hematoma. The facial and lip swelling also do not seem consistent with hematoma being the source of the respiratory arrest. The anterior neck feels soft without any tenseness even on deep palpation. Although the tip of the drain seems lateralized on the CT, the negative section is still holding and there is only minimal drainage in the bulb. I discussed in detail with Dr. Kim (Anesthesia) and my spine surgery colleague (Dr. Gates), and Dr. Michel (Medicine). At this point, we feel that the sudden respiratory arrest with facial edema and likely laryngeal and pharyngeal edema could be related to a reaction to medication. Clinically her anterior neck appears soft and supple, but we will continue to monitor her. I recommended Decadron 10 mg q6h IV to see if this reduces her edema. I called and spoke with Rob, patient's brother. I updated him about the sudden arrest and resuscitation. I answered all his questions to satisfaction. We will continue to update him as patient progresses.
[2023-07-03] MEDS: Chlorhexidine 15 ML PO (22:26)
[2023-07-03] MEDS: 0.9% Saline Lock 10 ML Syringe IV (22:27)
[2023-07-03] MEDS: dexAMETHasone 4 MG/ML Vial 10 MG IV (22:34)
[2023-07-03] MEDS: HYDROmorphone 0.5 MG/0.5 ML SYRINGE IV (23:26)
[2023-07-04] VITALS (32 sets, daily range): BP systolic 80–187; BP diastolic 49–91; PULSE 69–135; RESP 10–30; TEMP 37.2–38.2; O2SAT 92–98; BMI 31.5
--- NOTE | 2023-07-04 00:18 | NURSING ---
Addendum entered by Iman Haile 07/04/23 00:23: Dr. Thornton at bedside to evaluate pt. Took down neck dressing and redressed w/ gauze and opsite. Gave orders for decadron. called pt's brother Rob and updated him on pt status and gave ICU floor number if he wants to call for updates. Rob will come in the morning to visit. Original Note: Responded to naheed ma called in PACU. Upon admission CPR was in progress and anesthesia was preparing to intubate. During intubation, pulse check revealed a strong slow pulse and the monitor showed sinus shreya. HR slowed increased to low 100s. After pt was stabilized, T[employer]OR and this RN took pt to CT and then to ICU. OG and Jaquez placed, respiratory at bedside as well.
[2023-07-04] MEDS: Propofol 10MG/Ml 1,000 MG/100 ML Bottle 10.6 MG CONT INF (02:08)
[2023-07-04] MEDS: HYDROmorphone 0.5 MG/0.5 ML SYRINGE IV (02:08)
[2023-07-04 02:56] LABS: Absolute Lymphocyte Count 0.39 X10^3/uL (0.83-4.51); Absolute Neutrophil Count 12.5 X10^3/uL (2.0-7.7); Basophil# 0.01 X10^3/uL; Basophil% 0.1 % (0-1); Hematocrit 30.7 % (37-47); Hemoglobin 9.8 g/dL (12.0-15.0); Lymphocyte # 0.39 X10^3/ul (0.83-4.51); Lymphocyte % 2.9 % (19-41); Mean Corp Hgb Conc 31.9 g/dL (32-36); Mean Corpuscular Volume 93.9 fL (81-99); Mean Platelet Vol. 9.5 fl (6.2-12.0); Monocyte# 0.29 X10^3/uL; Monocyte% 2.2 % (0-10); NRBC Flagged by Analyzer 0 % (0-5); Neutrophil # 12.52 X10^3/uL (2.7-7.7); POSITIVE DIFFERENTIAL YES; Platelet Count 239 K/mm3 (150-450); RBC Distribution Width CV 13.2 % (11.6-14.6); RBC Distribution Width SD 45.1 fl (35.1-43.9); Red Blood Count 3.27 M/mm3 (4.2-5.4); White Blood Count 13.3 K/mm3 (4.4-11.0)
[2023-07-04 03:02] LABS: Differential Indicated SCAN CRITERIA MET
[2023-07-04 03:13] LABS: AST(SGOT) 57 U/L (15-37); Alanine Aminotransfer ALT/SGPT 78 U/L (13-56); Alkaline Phosphatase 56 U/L (45-117); Anion Gap 9 (5-15); BUN 12 mg/dL (7-18); BUN/Creat Ratio 12.2 RATIO (10-20); Bilirubin, Direct 0.06 mg/dL (0.00-0.30); Calcium,Total 7.7 mg/dL (8.5-10.1); Chloride 106 mmol/L (98-107); Creatinine, Serum 0.99 mg/dL (0.55-1.02); EST Glomerular Filtration Rate 61 mL/min (>60); Est Glom Filt Rate - Afr Amer 73 mL/min (>60); Globulin 2.2 g/dL (2.2-4.2); Glucose 131 mg/dL (74-106); Magnesium 1.9 mg/dL (1.6-2.6); Phosphorus 3.1 mg/dL (2.5-4.9); Potassium 4.3 mmol/L (3.5-5.1); Protein, Total 5.2 g/dL (6.4-8.2); Sodium Level 139 mmol/L (136-145)
[2023-07-04 04:07] LABS: Differential Comment SCANNED
[2023-07-04] MEDS: dexAMETHasone 4 MG/ML Vial 10 MG IV (05:00)
[2023-07-04] MEDS: fentaNYL drip 100 ML 2.5 MCG CONT INF (05:00)
[2023-07-04] MEDS: Cefazolin 2 GM in 0.9% Normal Saline (100mL Bag) 100 ML IV (05:03)
[2023-07-04] MEDS: CHLORHEXIDINE GLUC 2% CLOTH 1 EACH TOWELETTE TOPICAL (05:59)
[2023-07-04] MEDS: TITRATION PARAMETER CHANGE 1 EACH IV (05:59)
--- NOTE | 2023-07-04 06:41 | CON.PCM.CC_ITS ---
Assessment & Plan Assessment/Plan (1) Acute hypercapnic respiratory failure: (2) S/P cervical spinal fusion: (3) Toxic metabolic encephalopathy: PLAN: Plan RECOMMENDATIONS: 1. Proceed with a trial of extubation this morning. 2. Once extubated, wean supplemental oxygen to maintain saturations at or above 90%. 3. Provided with incentive spirometer and encourage use. 4. Discontinue IV fluids. 5. Continue Decadron for 1 additional day. 6. Initiate Unasyn, pending finalized culture results. IMPRESSIONS: 1. Acute hypercapnic respiratory failure in the setting of cardiopulmonary arrest Unclear precipitating etiology. The differential would include airway compromise secondary to adverse medication reaction versus retropharyngeal hematoma. The patient was ultimately intubated by anesthesia. She was placed on Decadron overnight. There has been improvement in her reported oropharyngeal edema. The patient is currently doing well on a breathing trial with a notable air leak. In light of the infiltrates noted on chest imaging and the possibility for aspiration, the patient will be initiated on empiric Unasyn, pen ding culture results. Given the patient's clinical improvement in her ability to pass a breathing trial, will proceed with a trial of extubation. Once extubated, supplemental oxygen will be weaned to maintain saturations at or above 90%. 2. Cervical myelopathy, now postop day #1 status post cervical discectomy and fusion Continue routine postoperative care per spine surgery recommendations. 3. History of obstructive sleep apnea Resume nocturnal BiPAP therapy 17/11 cm of water upon extubation, per home regimen. 4. History of hypertension/hyperlipidemia/bipolar disorder Complicates care, management, recovery and prognosis. Continue home medications as indicated. TIME: 35 minutes of critical care time, independent of procedures, was spent addressing the patient's acute hypercapnic respiratory failure, review of all data and collaboration with the care team. HPI Consult Data Date of Consult: 07/04/23 HPI Narrative Reason for Consultation: Respiratory failure HPI Narrative: The patient is a 62-year-old female, with a history as outlined below, who presented for elective C3-5 anterior cervical discectomy due to a history of cervical stenosis and cord compression. The patient tolerated her procedure well with an estimated 50 mL blood loss. The patient has been followed in the past in the pulmonary medicine clinic due to a history of obstructive sleep apnea, for which the patient was prescribed nocturnal BiPAP with a pressure support of 17/11 cm of water. According to documentation, the patient began to complain of an inability to breathe while in the PACU, recovering from anesthesia. The patient subsequently became progressively hypoxemic. A CODE BLUE was subsequently called. It is un clear from documentation whether the patient truly lost a pulse. According to the hospitalist, the patient was bradycardic with a palpable pulse upon arrival. The patient was intubated by the anesthesia provider. A soft tissue CT neck was obtained, in light of her recent surgical intervention, and need to rule out hematoma that may have impacted her respiratory mechanics. The CT imaging demonstrated a retropharyngeal hematoma with postsurgical changes. The patient was initially significantly acidotic on ABG with a pH of 6.98, PCO2 of 98 and PO2 of 105. The patient was reevaluated by orthopedic surgery last night, who noted no significant obvious swelling or tense skin around the anterior neck. The patient was noted to have facial edema, which raise the concern for a potential reaction to medication. Therefore, she was placed on Decadron last night. This morning, the patient is alert and appropriately interactive. While she does have some baseline anxiety, she did tolerate a spontaneous breathing trial and was noted to have a cuff leak. According to the bedside nurses, her oropharyngeal edema has improved. [facility] Medical History (Updated 07/03/23 @ 20:[address] Jaclyn Michel, ) Alcohol use Anxiety BiPAP (biphasic positive airway pressure) dependence Bipolar disorder Bipolar disorder Bone fracture Carpal tunnel syndrome, bilateral CPAP/BiPAP (continuous or biphasic positive airway pressure) dependent High blood pressure High cholesterol History of emotional problems Non-smoker Panic disorder Psychiatric care Seasonal allergies Vision problems Wears glasses Home Medications lamotrigine 200 mg tablet 200 mg PO QHS DEPRESSION 02/20/14 [History Last Taken Unknown] loratadine 10 mg tablet 10 mg PO QHS ALLERGY 02/20/14 [History Last Taken Unknown] losartan 50 mg-hydrochlorothiazide 12.5 mg tablet 0.5 tab PO QHS BP 02/20/14 [History Last Taken Unknown] quetiapine 200 mg tablet 200 mg PO QHS SLEEP 02/20/14 [History Last Taken Unknown] alprazolam 0.5 mg tablet 0.5 mg PO DAILY ANXIETY 06/30/20 [History Last Taken 07/03/23] atorvastatin 40 mg tablet 40 mg PO QHS CHOLESTEROL 06/30/20 [History Last Taken Unknown] cholecalciferol (vitamin D3) 25 mcg (1,000 unit) tablet 1,000 unit PO DAILY SUPPLEMENT 06/30/20 [History Last Taken Unknown] sertraline 100 mg tablet 100 mg PO DAILY DEPRESSION 10/20/20 [History Last Taken 07/03/23] naproxen sodium 220 mg tablet (Flanax (naproxen)) 440 mg PO Q8H PRN Pain 05/21/22 [History Last Taken Unknown] polyethylene glycol 3350 17 gram oral powder packet (Miralax) 17 g PO DAILY SUPPLEMENT 07/10/22 [History Last Taken Unknown] baclofen 10 mg tablet 10 mg PO QHS PAIN 06/18/23 [History Last Taken Unknown] gabapentin 300 mg capsule 300 mg PO QHS PAIN 06/18/23 [History Last Taken Unknown] pantoprazole 40 mg tablet,delayed release 40 mg PO DAILY GERD 06/18/23 [History Last Taken 07/03/23] Allergy/AdvReac Type Severity Reaction Status Date / Time chamomile flower Allergy Upset Verified 07/03/23 11:08 Stomach Sulfa (Sulfonamide Allergy Hives Verified 07/03/23 11:08 Antibiotics) corn AdvReac Other Verified 07/03/23 11:08 wheat AdvReac Other Verified 07/03/23 11:08 Family History Mother Hypertension Father Hypertension Pancreatic cancer Shingles Surgical History (Updated 07/03/23 @ 22:[address] Bebo Thornton MD) History of carpal tunnel surgery of left wrist History of carpal tunnel surgery of right wrist History of colonoscopy History of hysterectomy Social History Smoking Status: Never smoker alcohol intake: current alcohol intake frequency: a few times a week Alcohol type: wine substance use type: does not use ROS Review of Systems ROS Unobtainable: due to endotracheal tube Physical Exam Const alert and no apparent distress Constitutional Narrative: Remains intubated and mechanically ventilated. General Appearance: cooperative HEENT normocephalic and head/scalp atraumatic Mouth: endotracheal tube in place Eyes PERRL, EOMs intact bilaterally and conjunctivae normal Neck supple Neck Narrative: Anterior CATALINA drain in place. Chest inspection of chest normal Resp normal respiratory effort Auscultation: Negative for rales, rhonchi or wheezes Cardio regular rate and regular rhythm GI normal to inspection, nondistended, normoactive bowel sounds Extremity no clubbing, cyanosis or edema Skin no rashes or lesions noted Neuro Neuro Narrative: Alert and able to follow simple commands. Psych Mood & Affect: anxious Lab / Micro Data 07/04/23 02:49 07/04/23 02:49 Labs: Laboratory Results - last 24 hr 07/03/23 11:04: POC Glucose 96 07/03/23 20:10: WBC 16.1 H, RBC 3.91 L, Hgb 12.2, Hct 37.2, MCV 95.1, MCH 31.2, MCHC 32.8, RDW Std Deviation 45.7 H, RDW Coeff of Wes 13.1, Plt Count 332, MPV 9.3, Sodium 138, Potassium 3.9, Chloride 105, Carbon Dioxide 25.0, Anion Gap 8, BUN 10, Creatinine 1.10 H, Estim Creat Clear Calc 55.42, Est GFR (MDRD) Af Amer 65, Est GFR (MDRD) Non-Af 53 L, BUN/Creatinine Ratio 9.1 L, Glucose 269 H, Calcium 8.1 L, Total Bilirubin 0.30, AST 71 H, ALT 95 H, Alkaline Phosphatase 79, Total Creatine Kinase 233 H, Total Protein 6.3 L, Albumin 3.7, Globulin 2.6, Albumin/Globulin Ratio 1.4, Triglycerides 48 07/04/23 02:49: WBC 13.3 H, RBC 3.27 L, Hgb 9.8 L, Hct 30.7 L, MCV 93.9, MCH 30.0, MCHC 31.9 L, RDW Std Deviation 45.1 H, RDW Coeff of Wes 13.2, Plt Count 239, MPV 9.5, Immature Gran % (Auto) 0.800, Neut % (Auto) 94.0 H, Lymph % (Auto) 2.9 L, [place] % (Auto) 2.2, Eos % (Auto) 0.0, Baso % (Auto) 0.1, Absolute Neuts (auto) 12.5 H, Absolute Lymphs (auto) 0.39 L, Nucleated RBC % 0, Differential Comment SCANNED, Sodium 139, Potassium 4.3, Chloride 106, Carbon Dioxide 24.0, Anion Gap 9, BUN 12, Creatinine 0.99, Estim Creat Clear Calc 57.30, Est GFR (MDRD) Af Amer 73, Est GFR (MDRD) Non-Af 61, BUN/Creatinine Ratio 12.2, Glucose 131 H, Calcium 7.7 L, Phosphorus 3.1, Magnesium 1.9, Total Bilirubin 0.30, Direct Bilirubin 0.06, AST 57 H, ALT 78 H, Alkaline Phosphatase 56, Total Protein 5.2 L, Albumin 3.0 L, Globulin 2.2 ABG Data ABG results: ABG 07/03/23 07/03/23 20:04 21:50 Specimen Type ART ART Sample Site R Radial L Radial pH 6.98 L* 7.34 L Bicarbonate Actual 23.0 22.6 Total CO2 26 24 Base Excess -9 L -3 L O2 Saturation 93 L 96 O2 % 15.0 70.0 ABG pCO2 97.9 H* 42.1 ABG pO2 105 H 87 Flex Test Positive N/A Respiration Rate 14 O2 Delivery Device Bagging Adult Vent Vent Mode Not entered AC Tidal Volume 450.0 POC PEEP 5 Crit Call To/Read Back Yes Blood Gas Notified Whom Anand Blood Gas Notified Time 20:05:33 Radiology Impression Cervical Spine X-Ray 07/03/23 13:41 IMPRESSION: Anterior cervical fusion with hardware C3-C5. Electronically Signed: Bryce Barbosa MD at 18:23 EST Reading Location ID and State: [facility] / [place] Tel , Service support , Soft Tissue Neck CT 07/03/23 19:59 IMPRESSION: Postoperative retropharyngeal hematoma from the odontoid to the level of C7 as above. The epicenter is to the left of midline but the hematoma across the midline displacing the midline structures anteriorly. Postsurgical changes from ACDF C3-C5. Biapical infiltrates. Electronically Signed: Bryce Barbosa MD at 21:28 EST Reading Location ID and State: [facility] / [place] Tel , Service support , Chest X-Ray 07/03/23 21:15 IMPRESSION: Support devices as above. Bilateral infiltrates suspicious for pneumonia. Electronically Signed: Bryce Barbosa MD at 21:53 EST , Charges/Coding Procedures Hospitalists Procedures: [id number] Critial Care 1st Hr
--- NOTE | 2023-07-04 07:34 | PCM.HOSP.N ---
Hospitalist Note Chart reviewed. DW Dr. Michel about events last night. Patient currently in the ICU under ortho service with CCM following. The Hospitalist service will follow peripherally while the patient is ICU status or until CCM signs off.
[2023-07-04] MEDS: Lactated Ringers 1,000 ML 100 ML IV (07:47)
--- NOTE | 2023-07-04 09:00 | PN.ORTHO_ITS ---
Subjective Subjective Postop day 1 C3-4 ACDF. Patient had a code last evening few hours after surgery and was intubated. Current suspicion seems to be angioedema from drug reaction. She is on IV steroids. This morning she seems to be awake and responsive to commands. Breathing trial is in progress. She says yes to some throat pain and is able to move all 4 extremities. Objective Data Objective Data Vital Signs: Vital Signs Temp Pulse Resp BP Pulse Ox O2 Del Method O2 Flow Rate 99.6 F H 81 18 153/83 H 97 Mechanical Ventilator 4 07/04/23 08:00 07/04/23 08:00 07/04/23 08:00 07/04/23 08:00 07/04/23 08:00 07/04/23 08:00 07/03/23 19:26 FiO2 35 07/04/23 08:00 Oxygen Flow Rate (L/min) 4 Oxygen Delivery Method Mechanical Ventilator Weight: 201 lb 4.513 oz Body Mass Index (BMI) 31.5 Intake & Output: Intake and Output for Last 24 Hours 07/02/23 07/03/23 07/04/23 23:59 23:59 23:59 Intake Total 1116.31 / 1116.31 Output Total 565 / 565 Balance 551.31 / 551.31 Lab / Micro Data 07/04/23 02:49 07/04/23 02:49 Labs: Laboratory Results - last 24 hr 07/03/23 11:04: POC Glucose 96 07/03/23 20:10: WBC 16.1 H, RBC 3.91 L, Hgb 12.2, Hct 37.2, MCV 95.1, MCH 31.2, MCHC 32.8, RDW Std Deviation 45.7 H, RDW Coeff of Wes 13.1, Plt Count 332, MPV 9.3, Sodium 138, Potassium 3.9, Chloride 105, Carbon Dioxide 25.0, Anion Gap 8, BUN 10, Creatinine 1.10 H, Estim Creat Clear Calc 55.42, Est GFR (MDRD) Af Amer 65, Est GFR (MDRD) Non-Af 53 L, BUN/Creatinine Ratio 9.1 L, Glucose 269 H, Calci um 8.1 L, Total Bilirubin 0.30, AST 71 H, ALT 95 H, Alkaline Phosphatase 79, Total Creatine Kinase 233 H, Total Protein 6.3 L, Albumin 3.7, Globulin 2.6, Albumin/Globulin Ratio 1.4, Triglycerides 48 07/04/23 02:49: WBC 13.3 H, RBC 3.27 L, Hgb 9.8 L, Hct 30.7 L, MCV 93.9, MCH 30.0, MCHC 31.9 L, RDW Std Deviation 45.1 H, RDW Coeff of Wes 13.2, Plt Count 239, MPV 9.5, Immature Gran % (Auto) 0.800, Neut % (Auto) 94.0 H, Lymph % (Auto) 2.9 L, [place] % (Auto) 2.2, Eos % (Auto) 0.0, Baso % (Auto) 0.1, Absolute Neuts (auto) 12.5 H, Absolute Lymphs (auto) 0.39 L, Nucleated RBC % 0, Differential Comment SCANNED, Sodium 139, Potassium 4.3, Chloride 106, Carbon Dioxide 24.0, Anion Gap 9, BUN 12, Creatinine 0.99, Estim Creat Clear Calc 57.30, Est GFR (MDRD) Af Amer 73, Est GFR (MDRD) Non-Af 61, BUN/Creatinine Ratio 12.2, Glucose 131 H, Calcium 7.7 L, Phosphorus 3.1, Magnesium 1.9, Total Bilirubin 0.30, Direct Bilirubin 0.06, AST 57 H, ALT 78 H, Alkaline Phosphatase 56, Total Protein 5.2 L, Albumin 3.0 L, Globulin 2.2 Micro: Microbiology 07/01/23 08:46 Swab (Method) Nasal Screen MRSA/MSSA - Final ABG Data ABG results: ABG 07/03/23 07/03/23 20:04 21:50 Specimen Type ART ART Sample Site R Radial L Radial pH 6.98 L* 7.34 L Bicarbonate Actual 23.0 22.6 Total CO2 26 24 Base Excess -9 L -3 L O2 Saturation 93 L 96 O2 % 15.0 70.0 ABG pCO2 97.9 H* 42.1 ABG pO2 105 H 87 Flex Test Positive N/A Respiration Rate 14 O2 Delivery Device Bagging Adult Vent Vent Mode Not entered AC Tidal Volume 450.0 POC PEEP 5 Crit Call To/Read Back Yes Blood Gas Notified Whom Anand Blood Gas Notified Time 20:05:33 Radiography Diagnostic Testing: Radiology Impression Cervical Spine X-Ray 07/03/23 13:41 IMPRESSION: Anterior cervical fusion with hardware C3-C5. Electronically Signed: Bryce Barbosa MD at 18:23 EST , Soft Tissue Neck CT 07/03/23 19:59 IMPRESSION: Postoperative retropharyngeal hematoma from the odontoid to the level of C7 as above. The epicenter is to the left of midline but the hematoma across the midline displacing the midline structures anteriorly. Postsurgical changes from ACDF C3-C5. Biapical infiltrates. Electronically Signed: Bryce Barbosa MD at 21:28 EST , Chest X-Ray 07/03/23 21:15 IMPRESSION: Support devices as above. Bilateral infiltrates suspicious for pneumonia. Electronically Signed: Bryce Barbosa MD at 21:53 EST , Physical Exam Narrative Examination of the incision shows no active drainage. Channel drain in place. Dressing is dry. Anterior neck is soft. Neurologic evaluation of upper and lower extremity shows 5 x 5 power in all muscle groups with some associated stiffness. Assessment & Plan Assessment/Plan (1) S/P cervical spinal fusion: (2) Acute hypercapnic respiratory failure: PLAN: Plan I went over all the events last night with the patient. She is in good spirits. Hoping for passing the breathing trial and extubation possibly today. It seems IV Decadron seems to be working. I discussed with Dr. Mancera, ICU central processing technician, and agreed with their plan. Agree with continued IV antibiotics for now. Soft collar for comfort. PT OT today. Appreciate ICU and hospitalist care.
[2023-07-04] MEDS: Ampicillin/Sulbactam 3 GM in 0.9% Normal Saline (100mL MB+) 100 ML IV ×3 (09:08→21:18)
[2023-07-04] MEDS: Pantoprazole Sodium 40 MG in 0.9% Normal Saline (100mL MB+) 100 ML 330 MG IV (10:07)
[2023-07-04] MEDS: hydrALAZINE 20 MG/ML Vial 10 MG IV ×2 (11:12→17:27)
[2023-07-04] MEDS: 0.9% Saline Lock 10 ML Syringe IV ×4 (11:12→17:29)
--- NOTE | 2023-07-04 11:20 | CASEMGMT ---
ANUSHA VAZQUEZ into pt room, pt lying in bed with oxygen on. Introduced self to pt and made aware this RN TAYLOR called her prior to surgery for dc planning. Pt states she still intends to go home as soon as she can. Her brother is here from [place] and she is not sure if he is going back home tomorrow or not. He is not present in the room. Pt has not worked with therapy yet. Pt aware ANUSHA VAZQUEZ will follow therapy recs and oxygen needs. Pt denies any questions or needs at this time.
[2023-07-04] MEDS: dexAMETHasone 10 MG/ML Vial IV ×3 (11:28→23:15)
[2023-07-04] MEDS: ALPRAZolam 0.5 MG Tablet PO (12:20)
[2023-07-04] MEDS: oxyCODONE 5 MG Tablet PO ×2 (12:20→19:43)
[2023-07-04] MEDS: Sertraline 100 MG Tablet PO (12:21)
[2023-07-04] MEDS: hydroCHLOROthiazide 6.25mg TAB 6.25 MG PO ×2 (13:14→21:18)
[2023-07-04] MEDS: Losartan Potassium 25 MG Tablet PO ×2 (13:15→21:18)
[2023-07-04] MEDS: Ondansetron 4 MG/2 ML Vial IV (14:29)
[2023-07-04] MEDS: Ibuprofen 400 MG Tablet PO (16:25)
[2023-07-04 19:17] LABS: Bedside Glucose 128 mg/dL (74-106)
[2023-07-04] MEDS: lamoTRIgine 100 MG Tablet 200 MG PO (21:19)
[2023-07-04] MEDS: QUEtiapine 100 MG Tablet 200 MG PO (21:19)
[2023-07-04] MEDS: Acetaminophen 500 MG Tablet 1000 MG PO (21:19)
[2023-07-04] MEDS: Baclofen 10 MG Tablet PO (22:22)
--- NOTE | 2023-07-04 23:00 | CPS ---
Pt was unable to tolerate wearing BIPAP
[2023-07-05] VITALS (18 sets, daily range): BP systolic 124–187; BP diastolic 59–108; PULSE 95–120; RESP 14–24; TEMP 36.1–37.4; O2SAT 94–98; BMI 30.6
[2023-07-05] MEDS: Ibuprofen 400 MG Tablet PO ×2 (05:17→17:37)
[2023-07-05] MEDS: dexAMETHasone 10 MG/ML Vial IV (05:17)
[2023-07-05] MEDS: hydrALAZINE 20 MG/ML Vial 10 MG IV ×3 (05:18→17:36)
[2023-07-05] MEDS: Ampicillin/Sulbactam 3 GM in 0.9% Normal Saline (100mL MB+) 100 ML IV ×3 (05:18→20:44)
--- NOTE | 2023-07-05 07:29 | PCM.PN.INT ---
Assessment & Plan Assessment/Plan (1) Acute hypercapnic respiratory failure: (2) S/P cervical spinal fusion: (3) Toxic metabolic encephalopathy: PLAN: Plan RECOMMENDATIONS: 1. Wean supplemental oxygen to maintain saturations at or above 90%. 2. Increase losartan and hydrochlorothiazide doses as ordered. 3. Discontinue Decadron. 4. Encourage incentive spirometer use and mobilize patient as tolerated. 5. Once stable for discharge, transition from Unasyn to Augmentin to complete 7 days of therapy. 6. Continue nocturnal BiPAP therapy per home regimen. 7. The patient is medically stable for transfer out of the intensive care unit. We will sign off from a critical care perspective. IMPRESSIONS: 1. Acute hypercapnic respiratory failure in the setting of cardiopulmonary arrest Unclear precipitating etiology. The differential would include airway compromise secondary to adverse medication reaction versus retropharyngeal hematoma. The patient was ultimately intubated by anesthesia. Ultimately, the patient was able to be extubated within 24 hours. At this time, Decadron can be discontinued from my perspective. In light of the infiltrates noted on chest imaging and the possibility for aspiration, the patient will be continued on empiric Unasyn, pending culture results. Plan to continue to wean supplemental oxygen to maintain saturations at or above 90%. Encourage incentive spirometer use and mobilize patient as tolerated. At discharge, the patient can be transitioned from Unasyn to Augmentin to complete 7 days of therapy. 2. Cervical myelopathy, now postop day #2 status post cervical discectomy and fusion Continue routine postoperative care per spine surgery recommendations. 3. History of obstructive sleep apnea Continue nocturnal BiPAP therapy 17/11 cm of water upon extubation, per home regimen. 4. History of hypertension/hyperlipidemia/bipolar disorder Complicates care, management, recovery and prognosis. Continue home medications as indicated. This note was generated with [employer] dictation software. It may contain incorrect words, spelling, and punctuation that were not noted in checking the note before signing. Subjective Subjective The patient was seen and examined at the bedside this morning. Events from the last 24 hours have been reviewed. The patient is currently afebrile, hemodynamically stable and maintaining appropriate oxygen saturations on 2 L/min via nasal cannula. Blood pressures are still running on the high side. Objective Data Objective Data The patient's most recent lab work, culture data and imaging studies have all been personally reviewed. Sputum culture is pending. Vital Signs: Vital Signs Temp Pulse Resp BP Pulse Ox O2 Del Method O2 Flow Rate 99.0 F 114 H 24 H 175/87 H 96 Nasal Cannula 2 07/05/23 05:00 07/05/23 07:00 07/05/23 07:00 07/05/23 07:00 07/05/23 07:00 07/05/23 07:00 07/05/23 07:00 FiO2 35 07/04/23 09:00 Oxygen Flow Rate (L/min) 2 Oxygen Delivery Method Nasal Cannula Weight: 195 lb 8.8 oz Body Mass Index (BMI) 30.6 Intake & Output: Intake and Output for Last 24 Hours 07/03/23 07/04/23 07/05/23 23:59 23:59 23:59 Intake Total 2167.31 / 2167.31 112 / 112 Output Total 1325 / 1325 450 / 450 Balance 842.31 / 842.31 -338 / -338 Lab / Micro Data Attestation: I reviewed the patient's lab results. 07/04/23 02:49 07/04/23 02:49 Labs: Laboratory Results - last 24 hr 07/04/23 18:56: POC Glucose 128 H Micro: Microbiology 07/03/23 21:00 Sputum, Induced/Lukens Gram Stain - Final 07/01/23 08:46 Swab (Method) Nasal Screen MRSA/MSSA - Final Physical Exam Const alert, oriented x3 and no apparent distress General Appearance: cooperative HEENT normocephalic, head/scalp atraumatic and moist oral mucous membranes Eyes PERRL, EOMs intact bilaterally and conjunctivae normal Neck supple Neck Narrative: Anterior CATALINA drain in place. Chest inspection of chest normal Resp normal respiratory effort Auscultation: Negative for rales, rhonchi or wheezes Cardio regular rate and regular rhythm GI normal to inspection, nondistended, normoactive bowel sounds Extremity no clubbing, cyanosis or edema Skin no rashes or lesions noted Neuro CN's II-XII intact bilaterally, moves all extremities and no focal motor deficits Psych Mood & Affect: anxious Charges/Coding Visit Charges Inpatient E&M: 92218 Subs Hosp L3
[2023-07-05] MEDS: Pantoprazole Sodium 40 MG in 0.9% Normal Saline (100mL MB+) 100 ML 330 MG IV (08:34)
[2023-07-05] MEDS: Sertraline 100 MG Tablet PO ×2 (08:35→08:36)
[2023-07-05] MEDS: ALPRAZolam 0.5 MG Tablet PO (08:35)
[2023-07-05] MEDS: Losartan Potassium 25 MG Tablet PO (08:39)
[2023-07-05] MEDS: oxyCODONE 5 MG Tablet PO (08:39)
--- NOTE | 2023-07-05 09:02 | PCM.PN.ORT ---
Subjective Subjective Postop day 2 status post C3-5 ACDF. Recovering well from the postoperative drug reaction and intubation episode. She was extubated yesterday morning. Jaquez was discontinued this morning. She has been maintaining well with nasal oxygen which is being weaned off as at this time. She worked with physical therapy yesterday and took a few steps. Her swallowing and voice is improving. Objective Data Objective Data Vital Signs: Vital Signs Temp Pulse Resp BP Pulse Ox O2 Del Method O2 Flow Rate 99.0 F 105 H 20 H 187/92 H 96 Room Air 2 07/05/23 05:00 07/05/23 08:00 07/05/23 08:00 07/05/23 08:00 07/05/23 08:00 07/05/23 08:00 07/05/23 07:00 FiO2 35 07/04/23 09:00 Oxygen Flow Rate (L/min) 2 Oxygen Delivery Method Room Air Weight: 195 lb 8.8 oz Body Mass Index (BMI) 30.6 Intake & Output: Intake and Output for Last 24 Hours 07/03/23 07/04/23 07/05/23 23:59 23:59 23:59 Intake Total 2167.31 / 216.31 112 / 112 Output Total 1325 / 1325 450 / 450 Balance 842.31 / 842.31 -338 / -338 Lab / Micro Data 07/04/23 02:49 07/04/23 02:49 Labs: Laboratory Results - last 24 hr 07/04/23 18:56: POC Glucose 128 H Micro: Microbiology 07/03/23 21:00 Sputum, Induced/Lukens Gram Stain - Final 07/01/23 08:46 Swab (Method) Nasal Screen MRSA/MSSA - Final Physical Exam Narrative Examination of the neck shows dressing showing some dry blood staining. Neurologic evaluation of upper and lower extremity shows 5 x 5 power normal shows normal sensations in all dermatomes. Assessment & Plan Assessment/Plan (1) S/P cervical spinal fusion: PLAN: Plan Per ICU recommendations, patient will likely transfer to floor today. Spontaneous void trial ongoing. PT OT mobilization to assess for discharge recommendations. Appreciate ICU and hospitalist comanagement. Discharge pending PT OT recs.
--- NOTE | 2023-07-05 09:22 | CASEMGMT ---
Social Work SW/CM both met w/pt this morning in regard to discharge plan. We discussed the option of pt going to a custodial facility for rehab. We discussed TCU as a possibility, as pt is not interested in going to a correction in the community. Also, Dr. Mane is her physician. Pt is agreeable to a referral to TCU. SW explained to pt the Medicare SNF benefit. Pt states understanding. SW did provide to pt a list of custodial facilities in network w/insurance, in pt's preferred geographic area, and complete w/quality and resource use data. Pt still would like TCU. SW left Sandra in TCU a message w/referral, she will let SW know if they can take pt. IZABELA Odonnell
[2023-07-05] MEDS: hydroCHLOROthiazide 6.25mg TAB 6.25 MG PO (09:37)
--- NOTE | 2023-07-05 10:29 | CASEMGMT ---
Social Work SW spoke w/Sandra from TCU, they can take pt tomorrow, as long as pt is 24 hours fever free. SW let pt know, pt agreeable to TCU. Pt aware length of stay in TCU is 20 days, as TCU does not take pt's secondary insurance, if pt needed more time they would work w/her to get her transferred to another facility that takes her insurance. Pt states understanding. Green sheet on chart in anticipation of discharge to TCU on the weekend. IZABELA Odonnell
--- NOTE | 2023-07-05 11:32 | PCM.PN.HOSP ---
Reason for Visit Reason for Visit: Diagnoses Elevated white blood cell count, unspecified (07/03/23) Other toxic encephalopathy (07/03/23) Disease of spinal cord, unspecified (07/03/23) Cardiac arrest, cause unspecified (07/03/23) Acute respiratory failure with hypercapnia (07/03/23) Hyperglycemia, unspecified (07/03/23) Elevation of levels of liver transaminase levels (07/03/23) Encounter for other preprocedural examination (07/03/23) Arthrodesis status (07/03/23) Subjective Subjective Breathing well. Some neck pain. Objective Data Objective Data Vital Signs: Vital Signs Temp Pulse Resp BP Pulse Ox O2 Del Method O2 Flow Rate 36.3 C L 112 H 19 H 174/95 H 94 Room Air 2 07/05/23 09:00 07/05/23 09:00 07/05/23 09:00 07/05/23 10:06 07/05/23 09:00 07/05/23 09:00 07/05/23 07:00 FiO2 35 07/04/23 09:00 Oxygen Flow Rate (L/min) 2 Oxygen Delivery Method Room Air Weight: 88.7 kg Body Mass Index (BMI) 30.6 Intake & Output: Intake and Output for Last 24 Hours 07/03/23 07/04/23 07/05/23 23:59 23:59 23:59 Intake Total 2167.31 / 2167.31 502 / 502 Output Total 1325 / 1325 450 / 450 Balance 842.31 / 842.31 52 / 52 Lab / Micro Data 07/04/23 02:49 07/04/23 02:49 Labs: Laboratory Results - last 24 hr 07/04/23 18:56: POC Glucose 128 H Micro: Microbiology 07/03/23 21:00 Sputum, Induced/Lukens Gram Stain - Final 07/01/23 08:46 Swab (Method) Nasal Screen MRSA/MSSA - Final Physical Exam Const alert and no apparent distress HEENT head/scalp atraumatic and moist oral mucous membranes Resp normal respiratory effort, no retractions, no use of accessory muscles and clear to auscultation bilaterally Cardio regular rate, regular rhythm, S1 normal heart sound and S2 normal heart sound GI normal to inspection, nondistended, normoactive bowel sounds, soft to palpation, non-tender and non-distended Extremity normal to inspection Assessment & Plan Assessment/Plan (1) S/P cervical spinal fusion: PLAN: Plan 1. Bradycardia: pt underwent CPR, but unclear if actually required as it appears the pulse may not have even be check. 2. acute hypercapnic respiratory failure: extubated on 07/04. 3. metabolic encephalopathy: 2/2 carbon dioxide narcosis. resolved. no additional work up. 4. HTN, accelertated: on losartan, HCTZ. on PRN hydralazine. Monitor 5. chronic conditions: HLP, bipolar disorder, GERD: complicates care and recovery. 6. VTE prophylaxis: SCDs. Charges/Coding Visit Charges Inpatient E&M: 74453 Subs Hosp L2
[2023-07-05] MEDS: 0.9% Saline Lock 10 ML Syringe IV ×2 (11:36→17:37)
--- NOTE | 2023-07-05 12:48 | CASEMGMT ---
Updated at this time regarding dc plan via backline.
[2023-07-05] MEDS: lamoTRIgine 100 MG Tablet 200 MG PO (20:42)
[2023-07-05] MEDS: hydroCHLOROthiazide 12.5mg 12.5 MG PO (20:42)
[2023-07-05] MEDS: Losartan Potassium 50 MG Tablet PO (20:42)
[2023-07-05] MEDS: QUEtiapine 100 MG Tablet 200 MG PO (20:42)
[2023-07-05] MEDS: Baclofen 10 MG Tablet PO (20:42)
[2023-07-06] VITALS (10 sets, daily range): BP systolic 130–191; BP diastolic 80–89; PULSE 80–107; RESP 16–22; TEMP 36.6–36.9; O2SAT 96–98; BMI 30.7
[2023-07-06] MEDS: 0.9% Saline Lock 10 ML Syringe IV ×2 (05:08→12:26)
[2023-07-06] MEDS: Ampicillin/Sulbactam 3 GM in 0.9% Normal Saline (100mL MB+) 100 ML IV ×2 (05:08→13:45)
[2023-07-06] MEDS: Acetaminophen 500 MG Tablet 1000 MG PO ×2 (05:08→13:45)
[2023-07-06] MEDS: 0.9% Normal Saline (250mL Bag) 250 ML 15 ML IV (05:10)
--- NOTE | 2023-07-06 07:57 | PCM.PN.HOSP ---
Reason for Visit Reason for Visit: Diagnoses Elevated white blood cell count, unspecified (07/03/23) Other toxic encephalopathy (07/03/23) Disease of spinal cord, unspecified (07/03/23) Cardiac arrest, cause unspecified (07/03/23) Acute respiratory failure with hypercapnia (07/03/23) Hyperglycemia, unspecified (07/03/23) Elevation of levels of liver transaminase levels (07/03/23) Encounter for other preprocedural examination (07/03/23) Arthrodesis status (07/03/23) Subjective Subjective . Blood pressure has been up but patient is otherwise feeling well. Objective Data Objective Data Vital Signs: Vital Signs Temp Pulse Resp BP Pulse Ox O2 Del Method O2 Flow Rate 36.8 C 107 H 18 130/88 H 98 Room Air 2 07/06/23 01:50 07/06/23 01:50 07/06/23 01:50 07/06/23 01:50 07/06/23 01:50 07/06/23 01:50 07/05/23 07:00 FiO2 35 07/04/23 09:00 Oxygen Flow Rate (L/min) 2 Oxygen Delivery Method Room Air Weight: 88.7 kg Body Mass Index (BMI) 30.7 Intake & Output: Intake and Output for Last 24 Hours 07/04/23 07/05/23 07/06/23 23:59 23:59 23:59 Intake Total 2167.31 / 2167.31 926 / 1036 222 / 222 Output Total 1325 / 1325 450 / 450 400 / 400 Balance 842.31 / 842.31 476 / 586 -178 / -178 Lab / Micro Data 07/04/23 02:49 07/04/23 02:49 Micro: Microbiology 07/05/23 12:55 Nasal Secretion SARS-CoV-2 Antigen (Rapid) - Final 07/03/23 21:00 Sputum, Induced/Lukens Gram Stain - Final 07/01/23 08:46 Swab (Method) Nasal Screen MRSA/MSSA - Final Physical Exam Const alert and no apparent distress Resp normal respiratory effort, no retractions, no use of accessory muscles and clear to auscultation bilaterally Cardio regular rate, regular rhythm and S1 normal heart sound GI normal to inspection, nondistended, normoactive bowel sounds Psych affect normal Assessment & Plan Assessment/Plan (1) S/P cervical spinal fusion: PLAN: Plan 1. Bradycardia: pt underwent CPR, but unclear if actually required as it appears the pulse may not have even be check. 2. acute hypercapnic respiratory failure: extubated on 07/04. 3. metabolic encephalopathy: 2/2 carbon dioxide narcosis. resolved. no additional work up. 4. HTN, accelertated: on losartan, HCTZ. on PRN hydralazine. Monitor 5. chronic conditions: HLP, bipolar disorder, GERD: complicates care and recovery. 6. VTE prophylaxis: SCDs. Patient had a transient fever but has remained afebrile over the past 24 hours. I did discuss with the admission personnel over at TCU and discussed the case that if patient remains afebrile for 24 hours that they could accept her despite the patient periodically using ibuprofen. The purpose of the ibuprofen was for pain control not for antipyretic use. Patient medically stable to be transferred to TCU today. The hospital service will sign off. Please call or reconsult if new issues arise. Charges/Coding Visit Charges Inpatient E&M: 77728 Subs Hosp L2
[2023-07-06] MEDS: Pantoprazole Sodium 40 MG in 0.9% Normal Saline (100mL MB+) 100 ML 330 MG IV (09:31)
[2023-07-06] MEDS: ALPRAZolam 0.5 MG Tablet PO (09:32)
[2023-07-06] MEDS: Sertraline 100 MG Tablet PO (09:40)
--- NOTE | 2023-07-06 11:50 | PN.ORTHO_ITS ---
Subjective Subjective Postop day 3 status post C3-5 ACDF. Had reaction to possibly labetalol for which she was intubated on first night an d extubated next morning. Patient has been improving significantly with time. Her swallowing is improving but she does not feel good appetite. She has been working with physical therapy with the help of a walker for balance. Her pain is in good control. Objective Data Objective Data Vital Signs: Vital Signs Temp Pulse Resp BP Pulse Ox O2 Del Method O2 Flow Rate 98.4 F 91 18 175/83 H 96 Room Air 2 07/06/23 09:19 07/06/23 09:19 07/06/23 09:19 07/06/23 09:19 07/06/23 09:19 07/06/23 09:19 07/05/23 07:00 FiO2 35 07/04/23 09:00 Oxygen Flow Rate (L/min) 2 Oxygen Delivery Method Room Air Weight: 195 lb 8.8 oz Body Mass Index (BMI) 30.7 Intake & Output: Intake and Output for Last 24 Hours 07/04/23 07/05/23 07/06/23 23:59 23:59 23:59 Intake Total 2167.31 / 2167.31 926 / 1036 222 / 222 Output Total 1325 / 1325 450 / 450 400 / 400 Balance 842.31 / 842.31 476 / 586 -178 / -178 Lab / Micro Data 07/04/23 02:49 07/04/23 02:49 Micro: Microbiology 07/03/23 21:00 Sputum, Induced/Lukens Gram Stain - Final 07/03/23 21:00 Sputum, Induced/Lukens Respiratory Culture - Final Mixed normal respiratory alyson. No Streptococcus pneumoniae, beta-hemolytic Streptococcus or Staphylococcus aureus isolated. 07/05/23 12:55 Nasal Secretion SARS-CoV-2 Antigen (Rapid) - Final 07/01/23 08:46 Swab (Method) Nasal Screen MRSA/MSSA - Final Physical Exam Narrative Dressing CDI. No soakage or staining today. Neurologic evaluation of upper and lower extremity shows 5 x 5 power in all muscles normal sensations in all dermatomes. Malgorzata's positive bilaterally baseline. Assessment & Plan Assessment/Plan (1) S/P cervical spinal fusion: PLAN: Plan Patient has done extremely well despite the initial postop incident. Because of her slower recovery and mobilization, she may benefit from transitional unit care for rehab. From my perspective, she should be ready for this transfer today. We will continue PT OT mobilization. Soft diet as tolerated. May advance if throat discomfort improves. I will see her for follow-up in clinic in 2 weeks. All questions were answered.
--- NOTE | 2023-07-06 12:09 | TREXTCAR_ITS ---
Diet Diet Order/Speech Therapy: 07/04/23 11:40 Diet: Regular -soft diet, advance as tolerated. Dietary Modifications:: Gluten Free Is pt able to select menu?: Yes Diet Comments: NO CORN or CORN PRODUCTS Wound(s) ANTERIOR NECK: Wound Type: Surgical Incision Dressing Change: Dry Sterile Dressing (Change dressing if it gets wet or shows any staining.) Therapies Physical Therapy: Eval and Treat Occupational Therapy: Eval and Treat Narrative: Patient has cervical myelopathy treated with C3-5 decompression fusion. She has baseline balance and dexterity issues. She will need continued physical therapy to improve balance and strength. No lifting more than 5 pounds. No bending twi sting at the neck. Soft collar on at all times except for hygiene. Problem/Diagnosis (1) S/P cervical spinal fusion: Status: Acute Code(s): Z98.1 - Arthrodesis status Plan Patient has done extremely well despite the initial postop incident. Because of her slower recovery and mobilization, she may benefit from transitional unit care for rehab. From my perspective, she should be ready for this transfer today. We will continue PT OT mobilization. Soft diet as tolerated. May advance if throat discomfort improves. I will see her for follow-up in clinic in 2 weeks. All questions were answered. Allergies/Procedures Done in Hospital Allergies chamomile flower Allergy (Verified 07/03/23 11:08) Upset Stomach HERBAL TEA-HEADACHES Sulfa (Sulfonamide Antibiotics) Allergy (Verified 07/03/23 11:08) Hives corn Adverse Reaction (Verified 07/03/23 11:08) Other wheat Adverse Reaction (Verified 07/03/23 11:08) Other Type of Care/Length of Stay Estimated LOS: Convalescent Care Less Than 30 days Type of Care Needed: Skilled Rehab Potential: Good Prognosis: Good Additional Orders/Day of Discharge Day of Discharge: 07/06/23 Dietary and Speech Recommendations Dietitian Recommendations/Changes: Change to gluten free/no corn or corn products diet d/t wheat and corn adverse reactions Pt does not want ONS d/t products contain corn syrup. Follow Up Care Please follow up with your Primary Care Physician in: After discharge to home from TCU. Needs BP control optimized. Please Follow Up With: Bebo Thornton MD When: 2 weeks Discharge Plan Admission Admit Date/Time: 11/15/23 10:10 Primary Reason for Your Visit: s/p C3-5 acdf Attending Provider: Bebo Thornton Primary Care Provider: Tristan Mane [employer] Providers: Paige Morales; Ryan He; Vangie Murphy; Vangie García; Maritza Tineo; Nancy Schwartz; Leonor Mendoza; Eamon Quiroz; Eamon Grayson; Karl Nobles; Rome Ohara; Tim Chavez; Jarvis Tijerina; Geoffrey Wilkins; David Fay; Jaclyn Michel; Robb Tellez; Rosaura Bartlett; [place]; Rikki Chisholm; Philippe Perry; Lety Lawson; Portillo Chavez; Breann Jones NP; Shahid Llanes Instructions Patient Instructions: Cervical Disk Surg Dc Additional Instructions / Restrictions: Soft collar on at all times. May remove periodically for cleaning/hygiene. No lifting > 5 lbs. No bending/twisting at neck. Soft diet, advance as tolerated. Discharge Orders/Prescriptions Prescriptions: New oxycodone 5 mg Tablet 5 mg PO Q6H PRN (Reason: pain) 7 Days Qty: 0 0RF Continued naproxen sodium [Flanax (naproxen)] 220 mg tablet 440 mg PO Q8H PRN (Reason: Pain) baclofen 10 mg tablet 10 mg PO QHS pantoprazole 40 mg tablet,delayed release (DR/EC) 40 mg PO DAILY gabapentin 300 mg capsule 300 mg PO QHS lamotrigine 200 MG tablet 200 mg PO QHS quetiapine 200 MG tablet 200 mg PO QHS losartan-hydrochlorothiazide 1 EACH tablet 0.5 tab PO QHS loratadine 10 MG tablet 10 mg PO QHS sertraline 100 mg tablet 100 mg PO DAILY atorvastatin 40 MG tablet 40 mg PO QHS alprazolam 0.5 MG tablet 0.5 mg PO DAILY cholecalciferol (vitamin D3) 1,000 UNIT tablet 1,000 unit PO DAILY polyethylene glycol 3350 [Miralax] 17 gram Powder In Packet 17 g PO DAILY Referrals / Follow Up: Bebo Thornton MD [Med Staff - Active Staff] - Tristan Mane Chi, MD [Primary Care Provider] - Disposition Disposition (needs filled in before D/C Order can be placed): DC/Tx to Another Type of HCF
[2023-07-06] MEDS: hydrALAZINE 20 MG/ML Vial 10 MG IV (12:26)
--- NOTE | 2023-07-06 14:19 | NURSING ---
Dr. Gold notified bp continues to be elevated, 177/80, this was after hydralize was given.
--- NOTE | 2023-07-06 14:51 | NURSING ---
Dr orona notified of continues with elevated bp after hydralize was given, and he states he plans to do nothing more at this time.
[2023-07-06] MEDS: oxyCODONE 5 MG Tablet PO (15:24)
--- NOTE | 2023-07-08 09:09 | DS.PCM_ITS ---
Providers Date of Admission: 07/03/23 Primary Care Physician: Dr. Tristan Mane MD Consultations 07/03/23 18:11 Consult: Hospitalist Routine Consulting Provider: [facility] [employer] Reason for Consult: med management EMERGENT Consult: No Notified: Yes Date Notified: 07/03/23 Time Notified: 20:00 Method of Notification: Verbal 07/03/23 21:14 Consult: Safe Technician / Pulmonary Medicine Routine Consulting Provider: Pulmonary Medicine carson Lopez Reason for Consult: Vent management EMERGENT Consult: No Notified: Yes Date Notified: 07/03/23 Time Notified: 20:45 Method of Notification: Verbal Reason For Visit: C3-5 ACDF Diagnosis Discharge Diagnosis (1) S/P cervical spinal fusion: Status: Acute Code(s): Z98.1 - Arthrodesis status Plan Patient has done extremely well despite the initial postop incident. Because of her slower recovery and mobilization, she may benefit from transitional unit care for rehab. From my perspective, she should be ready for this transfer today. We will continue PT OT mobilization. Soft diet as tolerated. May advance if throat discomfort improves. I will see her for follow-up in clinic in 2 weeks. All questions were answered. Medications at Discharge Home Medications lamotrigine 200 mg tablet 200 mg PO QHS DEPRESSION 02/20/14 loratadine 10 mg tablet 10 mg PO QHS ALLERGY 02/20/14 losartan 50 mg-hydrochlorothiazide 12.5 mg tablet 0.5 tab PO QHS BP 02/20/14 quetiapine 200 mg tablet 200 mg PO QHS SLEEP 02/20/14 alprazolam 0.5 mg tablet 0.5 mg PO DAILY ANXIETY 06/30/20 atorvastatin 40 mg tablet 40 mg PO QHS CHOLESTEROL 06/30/20 cholecalciferol (vitamin D3) 25 mcg (1,000 unit) tablet 1,000 unit PO DAILY SUPPLEMENT 06/30/20 sertraline 100 mg tablet 100 mg PO DAILY DEPRESSION 10/20/20 naproxen sodium 220 mg tablet (Flanax (naproxen)) 440 mg PO Q8H PRN Pain 05/21/22 polyethylene glycol 3350 17 gram oral powder packet (Miralax) 17 g PO DAILY SUPPLEMENT 07/10/22 baclofen 10 mg tablet 10 mg PO QHS PAIN 06/18/23 gabapentin 300 mg capsule 300 mg PO QHS PAIN 06/18/23 pantoprazole 40 mg tablet,delayed release 40 mg PO DAILY GERD 06/18/23 oxycodone 5 mg tablet 5 mg PO Q6H PRN pain 7 days #0 tabs 07/06/23 Weight / BMI Weight Weight: 195 lb 8.8 oz Body Mass Index (BMI) 30.7 ABG / Lab / Microbiology Data 07/04/23 02:49 07/04/23 02:49 Microbiology: Microbiology 07/03/23 21:00 Sputum, Induced/Lukens Gram Stain - Final 07/03/23 21:00 Sputum, Induced/[place]ukens Respiratory Culture - Final Mixed normal respiratory alyson. No Streptococcus pneumoniae, beta-hemolytic Streptococcus or Staphylococcus aureus isolated. 07/05/23 12:55 Nasal Secretion SARS-CoV-2 Antigen (Rapid) - Final 07/01/23 08:46 Swab (Method) Nasal Screen MRSA/MSSA - Final D/C Instructions Please Follow Up With: Bebo Thornton MD Meaningful Use Info Meaningful Use Diagnoses (Choose all that apply): None applicable Discharge Plan Admission Admit Date/Time: 07/03/23 10:10 Primary Reason for Your Visit: s/p C3-5 acdf Attending Provider: Bebo Thornton Primary Care Provider: Tristan Mane Chi Consulting Providers: Paige Morales; Ryan He; Vangie Murphy; Vangie García; Maritza Tineo; Nancy Schwartz; Leonor Mendoza; Eamon Magallon; Eamon Grayson; Karl Nobles; Rome Ohara; Tim Chavez; Jarvis Tijerina; Geoffrey Wilkins; David Fay; Jaclyn Michel; Robb Tellez; Rosaura Bartlett; [place]; Rikki Chisholm; Philippe Perry; Lety Lawson; Portillo Chavez; Breann Jones NP; Shahid Llanes Instructions Patient Instructions: Cervical Disk Surg Dc Additional Instructions / Restrictions: Soft collar on at all times. May remove periodically for cleaning/hygiene. No lifting > 5 lbs. No bending/twisting at neck. Soft diet, advance as tolerated. Discharge Orders/Prescriptions Prescriptions: New oxycodone 5 mg Tablet 5 mg PO Q6H PRN (Reason: pain) 7 Days Qty: 0 0RF Continued naproxen sodium [Flanax (naproxen)] 220 mg tablet 440 mg PO Q8H PRN (Reason: Pain) baclofen 10 mg tablet 10 mg PO QHS pantoprazole 40 mg tablet,delayed release (DR/EC) 40 mg PO DAILY gabapentin 300 mg capsule 300 mg PO QHS lamotrigine 200 MG tablet 200 mg PO QHS quetiapine 200 MG tablet 200 mg PO QHS losartan-hydrochlorothiazide 1 EACH tablet 0.5 tab PO QHS loratadine 10 MG tablet 10 mg PO QHS sertraline 100 mg tablet 100 mg PO DAILY atorvastatin 40 MG tablet 40 mg PO QHS alprazolam 0.5 MG tablet 0.5 mg PO DAILY cholecalciferol (vitamin D3) 1,000 UNIT tablet 1,000 unit PO DAILY polyethylene glycol 3350 [Miralax] 17 gram Powder In Packet 17 g PO DAILY Referrals / Follow Up: Bebo Thornton MD [Med Staff - Active Staff] - Tristan Mane Chi, MD [Primary Care Provider] - Disposition Disposition (needs filled in before D/C Order can be placed): DC/Tx to Another Type of HCF
== END 2023-07-06 17:40 | DRG 471 ==
LOC: ACINP 10:11 → MS3 20:11 → ICU 20:22 → MS3 07-06 01:59
PROVIDERS: Anesthesiology; Internal Medicine; Admitting Provider Orthopaedic Surgery Orthopaedic Surgery of the Spine; PCP Family Medicine Geriatric Medicine; Referring Provider Orthopaedic Surgery Orthopaedic Surgery of the Spine; Visit Provider Orthopaedic Surgery Orthopaedic Surgery of the Spine
PROC: 0RG20A0 Fusion of 2 or more Cervical Vertebral Joints with Interbody Fusion Device, Anterior Approach, Anterior Column, Open Approach (ICD-10-PCS; CPT 22551; principal; 2023-07-03 11:55)
DX: M50.01 Cervical disc disorder with myelopathy, high cervical region (principal); J96.02 Acute respiratory failure with hypercapnia; G92.8 Other toxic encephalopathy; G93.41 Metabolic encephalopathy; G95.89 Other specified diseases of spinal cord; F31.9 Bipolar disorder, unspecified; I10 Essential (primary) hypertension; M48.02 Spinal stenosis, cervical region; K21.9 Gastro-esophageal reflux disease without esophagitis; M43.12 Spondylolisthesis, cervical region; D72.829 Elevated white blood cell count, unspecified; G47.33 Obstructive sleep apnea (adult) (pediatric); E78.00 Pure hypercholesterolemia, unspecified; T78.3XXA Angioneurotic edema, initial encounter; J38.4 Edema of larynx; R74.01 Elevation of levels of liver transaminase levels; T44.8X5A Adverse effect of centrally-acting and adrenergic-neuron-blocking agents, initial encounter; R73.9 Hyperglycemia, unspecified; T38.0X5A Adverse effect of glucocorticoids and synthetic analogues, initial encounter; R50.82 Postprocedural fever
CPT/HCPCS: 31500; 31720; 36415; 36600; 70490; 71045; 72040; 76000; 80048; 80053; 80076; 82550; 82803; 82962; 83735; 84100; 84478; 85025; 85027; 86703; 86706; 86708; 86803; 87070; 87081; 87205; 87426; 92950; 93005; 94002; 94003; 94660; 94668; 94799; 97116; 97162; 97166; 97530; 97535; 97802; 99252; C1713; J7050; J7120; A4216; G0463; J0295; J2405; J3475

== ENCOUNTER 2023-07-06 17:47 | Inpatient (IN) | payer MEDICARE, MEDICAID, SELFPAY ==
[2016-01-04 12:56] VITALS: BMI 24.3
[2023-07-06 17:56] VITALS: BP 206/110; PULSE 94; RESP 18; TEMP 37.1; O2SAT 95; BMI 28.6
--- NOTE | 2023-07-06 18:23 | HP.PCM_ITS ---
HPI - General General Date of Admission: 07/06/23 Date of Service: 07/08/23 Chief Complaint: Here for rehabilitation. HPI Narrative PREMA CID, is a 62 Female who presents with followin07/03/2023 Admit to [facility]. 07/03/2023 Dr. Thornton performed anterior cervical discectomy fusion C3-C5. 07/03/2023 Code Blue, respiratory arrest. Intubated, s/p CPR. 07/04/2023 Extubated, wean oxygen to 90% pulsox, stop IV fluids. Decadron for adverse medication reaction. Unasyn IV pending culture results. 07/04/2023 Respiratory distress secondary to angioedema from drug reaction, on IV Decadron. Responds to commands. Unasyn IV pending cultures. 07/05/2023 Breathing well. Encephalopathy. Talking normally. 07/06/2023 Admit to TCU with debility, here for rehabilitation, strengthening, prior to discharge home alone. [facility] Medical History (Updated 07/06/23 @ 18:[address] Tristan Mane MD) Alcohol use Anxiety BiPAP (biphasic positive airway pressure) dependence Bipolar disorder Bipolar disorder Bone fracture Carpal tunnel syndrome, bilateral CPAP/BiPAP (continuous or biphasic positive airway pressure) dependent High blood pressure High cholesterol History of emotional problems Non-smoker Panic disorder Psychiatric care Seasonal allergies Vision problems Wears glasses Home Medications lamotrigine 200 mg tablet 200 mg PO QHS DEPRESSION 02/20/14 [History Last Taken Unknown] loratadine 10 mg tablet 10 mg PO QHS ALLERGY 02/20/14 [History Last Taken Unknown] losartan 50 mg-hydrochlorothiazide 12.5 mg tablet 0.5 tab PO QHS BP 02/20/14 [History Last Taken Unknown] quetiapine 200 mg tablet 200 mg PO QHS SLEEP 02/20/14 [History Last Taken Unknown] alprazolam 0.5 mg tablet 0.5 mg PO DAILY ANXIETY 06/30/20 [History Last Taken 07/03/23] atorvastatin 40 mg tablet 40 mg PO QHS CHOLESTEROL 06/30/20 [History Last Taken Unknown] cholecalciferol (vitamin D3) 25 mcg (1,000 unit) tablet 1,000 unit PO DAILY SUPPLEMENT 06/30/20 [History Last Taken Unknown] sertraline 100 mg tablet 100 mg PO DAILY DEPRESSION 03/04/21 [History Last Taken 07/03/23] naproxen sodium 220 mg tablet (Flanax (naproxen)) 440 mg PO Q8H PRN Pain 05/21/22 [History Last Taken Unknown] polyethylene glycol 3350 17 gram oral powder packet (Miralax) 17 g PO DAILY SUPPLEMENT 07/10/22 [History Last Taken Unknown] baclofen 10 mg tablet 10 mg PO QHS PAIN 06/18/23 [History Last Taken Unknown] gabapentin 300 mg capsule 300 mg PO QHS PAIN 06/18/23 [History Last Taken Unkn own] pantoprazole 40 mg tablet,delayed release 40 mg PO DAILY GERD 06/18/23 [History Last Taken 07/03/23] oxycodone 5 mg tablet 5 mg PO Q6H PRN pain 7 days #0 tabs 07/06/23 [Rx Last Taken Unknown] Allergy/AdvReac Type Severity Reaction Status Date / Time chamomile flower Allergy Upset Verified 07/03/23 11:08 Stomach Sulfa (Sulfonamide Allergy Hives Verified 07/03/23 11:08 Antibiotics) labetalol AdvReac Severe Angioedema Verified 07/06/23 12:38 corn AdvReac Other Verified 07/03/23 11:08 wheat AdvReac Other Verified 07/03/23 11:08 Family History Mother Hypertension Father Hypertension Pancreatic cancer Shingles Surgical History (Updated 07/06/23 @ 18:[address] Tristan Mane MD) History of carpal tunnel surgery of left wrist History of carpal tunnel surgery of right wrist History of cervical discectomy History of colonoscopy History of hysterectomy Social History (Updated 07/06/23 @ 18:[address] Tristan Mane MD) household members: none Smoking Status: Never smoker alcohol intake: current alcohol intake frequency: a few times a week Alcohol type: wine substance use type: does not use ROS Constitutional Constitutional: Reports weakness; Denies chills, fever(s) or weight gain ENT HEENT: Denies headache(s), nasal congestion or nasal discharge Cardiovascular Cardiovascular: Denies chest pain or palpitations Respiratory/Chest Respiratory/Chest: Denies cough, excessive phlegm production or shortness of breath with exertion Gastrointestinal Gastrointestinal: Denies abdominal pain, nausea or vomiting Genitourinary Genitourinary: Denies dysuria Musculoskeletal Musculoskeletal: Denies joint pain or joint swelling Integumentary Integumentary: Denies rash or wounds Neurologic Neurologic: Denies focal weakness, numbness or tingling Psychiatric Psychiatric: Denies anxiety, auditory hallucinations, depression, homicidal ideation or suicidal ideation Physical Exam Const alert General Appearance: cooperative HEENT normocephalic Eyes PERRL and EOMs intact bilaterally Neck supple, no JVD and no carotid bruits Neck Narrative: C-collar. Resp normal respiratory effort, normal air movement and clear to auscultation bilaterally Cardio regular rate and regular rhythm GI normal to inspection, nondistended, normoactive bowel sounds, non-tender and non-distended Extremity normal capillary refill General Extremity: Negative for edema Skin no rashes or lesions noted General Skin Exam: no breakdown Psych affect normal Appearance: appropriate Results Lab / Micro Data 07/07/23 04:42 07/07/23 04:42 Assessment & Plan Assessment/Plan (1) Debility: (2) Cervical myelopathy: (3) S/P cervical spinal fusion: (4) Cardiopulmonary arrest: (5) Acute hypercapnic respiratory failure: (6) Bipolar disorder: (7) High blood pressure: (8) Hyperlipidemia: (9) GERD (gastroesophageal reflux disease): (10) MENG (obstructive sleep apnea): PLAN: Plan 62 year old female with below past medical history hospitalized for C3-C5 discectomy/fusion 06/23/2023, postoperative course complicated by acute respiratory arrest secondary to angioedema from drug reaction, admitted to TCU with debility, here for rehabilitation, strengthening, prior to discharge home alone. * Debility - PT/OT. * Pain - Tylenol 1000mg q6 prn pain (1-3), Naproxen 500mg q8 prn pain (4-5), Oxycodoone 5mg q4 prn pain (6-10), * Bowel - Miralax 17gm daily, senna/colace 2 tablets bid, Magnesium citrate 300ml daily prn. * Adult immunization - Administer pneumonia vaccine, covid vaccine, flu vaccine as appropriate. * DVT prophylaxis - Lovenox 40mg sc daily. * Anxiety/restlessness/sleep - Xanax 0.5mg q4h prn, stable chronic technician terminal and repeater use, GDR not recommended. * Hyperlipidemia - Atorvastatin 40mg qhs. * Muscle spasm - Baclofen 10mg qhs. * Vitamin D deficiency - D3 25mcg daily. * Neuropathic pain - Gabapentin 300mg qhs. * Hypertension - SBP 200 on arrival, Hydralazine 20mg iv x 1 dose, Hydralazine 10mg iv q6 prn SBP > 160, recheck blood pressure increase HCTZ 12.5mg qhs, Increase Losartan 100mg qhs. * Bipolar disorder - Lamictal 200mg qhs, Seroquel 200mg qhs, stable chronic technician terminal and repeater use, GDR not recommended. * Allergic rhinitis - Loratadine 10mg qhs. * GERD - Pantoprazole 40mg daily. * Depression - Sertraline 100mg daily, stable chronic technician terminal and repeater use, GDR not recommended.
[2023-07-06 18:49] VITALS: PULSE 94
[2023-07-06] MEDS: oxyCODONE 5 MG Tablet PO (18:49)
[2023-07-06] MEDS: 0.9% Saline Lock 10 ML Syringe IV (18:49)
[2023-07-06] MEDS: hydrALAZINE 20 MG/ML Vial IV (18:49)
--- NOTE | 2023-07-06 19:01 | NURSING ---
1854 dr tavarez notified of pt elevated BP, new order to given IV hydralazine 20mg and recheck BP in one hour. IV started, and med administered. pt c/o 03/28 ESCALERA. oxyir 5mg given as well. BP to be rechecked at 1954.
[2023-07-06 20:00] VITALS: BP 169/94; PULSE 106
[2023-07-06] MEDS: Naproxen 250 MG Tablet 500 MG PO (20:16)
[2023-07-06] MEDS: Senna/Docusate Sodium 1 Tablet 2 TABLET PO (20:17)
[2023-07-06] MEDS: hydroCHLOROthiazide 12.5mg 12.5 MG PO (20:18)
[2023-07-06] MEDS: Losartan Potassium 100 MG Tablet PO (20:18)
[2023-07-06] MEDS: Baclofen 10 MG Tablet PO (20:19)
[2023-07-06] MEDS: QUEtiapine 100 MG Tablet 200 MG PO (20:20)
[2023-07-06] MEDS: lamoTRIgine 100 MG Tablet 200 MG PO (20:20)
[2023-07-06] MEDS: Atorvastatin Calcium 40 MG Tablet PO (20:21)
[2023-07-06] MEDS: Loratadine 10 MG Tablet PO (20:21)
[2023-07-07 05:01] LABS: Absolute Lymphocyte Count 0.95 X10^3/uL (0.83-4.51); Absolute Neutrophil Count 5.6 X10^3/uL (2.0-7.7); Basophil# 0.03 X10^3/uL; Basophil% 0.4 % (0-1); Eosinophil# 0.09 X10^3/uL; Eosinophils% 1.3 % (0-5); Hematocrit 34.3 % (37-47); Hemoglobin 9.9 g/dL (12.0-15.0); Lymphocyte # 0.95 X10^3/ul (0.83-4.51); Lymphocyte % 13.3 % (19-41); Mean Corp Hgb Conc 28.9 g/dL (32-36); Mean Corpuscular Hgb 30.5 pg (27.0-32.0); Mean Corpuscular Volume 105.5 fL (81-99); Mean Platelet Vol. 9.9 fl (6.2-12.0); Monocyte% 5.6 % (0-10); NRBC Flagged by Analyzer 0 % (0-5); Neutrophil # 5.62 X10^3/uL (2.7-7.7); Neutrophil % 78.4 % (47-70); Platelet Count 152 K/mm3 (150-450); RBC Distribution Width SD 54.6 fl (35.1-43.9); Red Blood Count 3.25 M/mm3 (4.2-5.4); White Blood Count 7.2 K/mm3 (4.4-11.0)
[2023-07-07 05:27] LABS: Anion Gap 8 (5-15); BUN 30 mg/dL (7-18); BUN/Creat Ratio 32.1 RATIO (10-20); Calcium,Total 8.7 mg/dL (8.5-10.1); Chloride 107 mmol/L (98-107); Creatinine, Serum 0.94 mg/dL (0.55-1.02); EST Glomerular Filtration Rate 64 mL/min (>60); Est Glom Filt Rate - Afr Amer 78 mL/min (>60); Estimated Creatinine Clearance 64.85 ml/min; Glucose 91 mg/dL (74-106); Potassium 3.4 mmol/L (3.5-5.1); Sodium Level 137 mmol/L (136-145)
[2023-07-07] MEDS: Cholecalciferol (VIT D3) 25 MCG TABLET (1,000 UNITS) PO (09:14)
[2023-07-07] MEDS: Senna/Docusate Sodium 1 Tablet 2 TABLET PO (09:14)
[2023-07-07] MEDS: Sertraline 100 MG Tablet PO (09:14)
[2023-07-07] MEDS: Polyethylene Glycol 3350 17 GM PACKET PO (09:14)
[2023-07-07] MEDS: Pantoprazole Sodium 40 MG Tablet PO (09:14)
[2023-07-07] MEDS: Tuberculin,Purif.prot.deriv. 50 TU/ML Vial 0.1 ML ID (09:17)
[2023-07-07] MEDS: ALPRAZolam 0.5 MG Tablet PO (09:17)
[2023-07-07] MEDS: Naproxen 250 MG Tablet 500 MG PO ×2 (09:17→21:59)
[2023-07-07 09:26] VITALS: BP 175/82; PULSE 92; RESP 18; TEMP 36.8; O2SAT 98
[2023-07-07 09:29] VITALS: BP 175/82; PULSE 92
[2023-07-07] MEDS: 0.9% Saline Lock 10 ML Syringe IV (09:29)
[2023-07-07] MEDS: hydrALAZINE 20 MG/ML Vial 10 MG IV (09:29)
[2023-07-07] MEDS: Potassium Chloride Oral Tablet 20 MEQ 40 MEQ PO (10:52)
[2023-07-07] MEDS: amLODIPine 10 MG Tablet PO (10:52)
[2023-07-07 10:55] VITALS: BP 169/79; PULSE 90
--- NOTE | 2023-07-07 12:35 | NURSING ---
dr tavarez updated on pt elevated BP this AM, meds adjusted. also pt saline lock infiltrated so new order to change to PO hydralazine for SBP >160.
[2023-07-07] MEDS: oxyCODONE 5 MG Tablet PO ×2 (13:56→22:01)
--- NOTE | 2023-07-07 14:00 | NURSING ---
PT UPSET HAD A SODA ON HER LUNCH TRAY THAT HAD HIGH FRUCTOSE CORN SYRUP IN IT AND PT ALLERGIC. DIETARY NOTIFIED AND THIS NURSE MADE SURE THAT IT WAS LISTED ALLERGY AND IN DIETARY ORDERS, WHICH IT WAS.
[2023-07-07 14:06] VITALS: BP 176/77; PULSE 91
[2023-07-07] MEDS: hydrALAZINE 10 MG Tablet PO ×2 (14:06→21:59)
[2023-07-07 15:12] VITALS: BP 156/77; PULSE 82
[2023-07-07] MEDS: QUEtiapine 100 MG Tablet 200 MG PO (21:58)
[2023-07-07 21:59] VITALS: BP 187/91; PULSE 87
[2023-07-07] MEDS: lamoTRIgine 100 MG Tablet 200 MG PO (21:59)
[2023-07-07] MEDS: Atorvastatin Calcium 40 MG Tablet PO (22:00)
[2023-07-07] MEDS: Baclofen 10 MG Tablet PO (22:00)
[2023-07-07] MEDS: Losartan Potassium 100 MG Tablet PO (22:01)
[2023-07-07] MEDS: Loratadine 10 MG Tablet PO (22:01)
[2023-07-07] MEDS: hydroCHLOROthiazide 12.5mg 12.5 MG PO (22:02)
[2023-07-08 06:15] VITALS: BP 138/69; PULSE 90
--- NOTE | 2023-07-08 07:39 | NURSING ---
Gabapentin dc'ed per Dr. Mane d/t pt reporting the medication has corn in it and she has an allergy to corn. New order received on unit for b/l KHT for DVT prophylaxis as per surgeon's note chemoprophylaxis is to be held at this time.
[2023-07-08] MEDS: ALPRAZolam 0.5 MG Tablet PO (09:05)
[2023-07-08] MEDS: Sertraline 100 MG Tablet PO (09:05)
[2023-07-08] MEDS: amLODIPine 10 MG Tablet PO (09:05)
[2023-07-08] MEDS: Cholecalciferol (VIT D3) 25 MCG TABLET (1,000 UNITS) PO (09:05)
[2023-07-08] MEDS: Polyethylene Glycol 3350 17 GM PACKET PO (09:06)
[2023-07-08] MEDS: Pantoprazole Sodium 40 MG Tablet PO (09:06)
[2023-07-08] MEDS: Senna/Docusate Sodium 1 Tablet 2 TABLET PO ×2 (09:06→22:10)
[2023-07-08] MEDS: Potassium Chloride Oral Tablet 20 MEQ PO (09:06)
--- NOTE | 2023-07-08 13:38 | NURSING ---
Consumer Insights Specialist note; Activity Asset: Faith Fernandes is independent in her choice of daily activities. She has her smartphone, books, word puzzles and will watch tv. Her brother is in another state and and he will call or send her items she may need or want. She has friends that will visit and she welcomes visit from the retail service lead merchandiser. Dena is allergic to dogs and edwards. Staff will continue to offer daily activities and respect her right to say no.
--- NOTE | 2023-07-08 14:19 | PHA.CONS_ITS ---
Documented by User: Jake Simms 07/08/23 14:47 TCU RX Drug Regimen Review Subjective/Objective Subjective/Objective: Subjective: 62 year old female with below past medical history hospitalized for C3-C5 discectomy/fusion 06/23/2023, postoperative course complicated by acute respiratory arrest secondary to angioedema from drug reaction, admitted to TCU with debility, here for rehabilitation, strengthening, prior to discharge home alone. Objective: Allergies chamomile flower Allergy (Verified 07/03/23 11:08) Upset Stomach HERBAL TEA-HEADACHES Sulfa (Sulfonamide Antibiotics) Allergy (Verified 07/03/23 11:08) Hives labetalol Adverse Reaction (Severe, Verified 07/06/23 12:38) Angioedema corn Adverse Reaction (Verified 07/03/23 11:08) Other wheat Adverse Reaction (Verified 07/03/23 11:08) Other Current Medications Generic Name Dose Route Start Last Admin Trade Name Freq PRN Reason Stop Dose Admin Acetaminophen 1,000 mg 07/06/23 18:47 Acetaminophen 500 Mg Tablet PO Q6H PRN PRN Pain Score 1-3 Alprazolam 0.5 mg 07/06/23 18:49 07/08/23 09:05 Alprazolam 0.5 Mg Tablet PO 0.5 mg Q4H PRN PRN Administration ANXIETY/RESTLESSNESS/SLEEP Amlodipine Besylate 10 mg 07/07/23 10:00 07/08/23 09:05 Amlodipine 10 Mg Tablet PO 10 mg DAILY EVA Administration Protocol Atorvastatin Calcium 40 mg 07/06/23 22:00 07/07/23 22:00 Atorvastatin Calcium 40 Mg Tablet PO 40 mg QHS EVA Administration Baclofen 10 mg 07/06/23 22:00 07/07/23 22:00 Baclofen 10 Mg Tablet PO 10 mg QHS EVA Administration Cholecalciferol 25 mcg 07/07/23 10:00 07/08/23 09:05 Cholecalciferol (Vit D3) 25 Mcg Tablet (1,000 Units) PO 25 mcg DAILY EVA Administration Hydralazine HCl 10 mg 07/07/23 12:33 07/07/23 21:59 Hydralazine 10 Mg Tablet PO 10 mg Q6H PRN Administration SBP >160 Protocol Hydrochlorothiazide 12.5 mg 07/06/23 22:00 07/07/23 22:02 Hydrochlorothiazide 12.5mg PO 12.5 mg QHS EVA Administration Lamotrigine 200 mg 07/06/23 22:00 07/07/23 21:59 Lamotrigine 100 Mg Tablet PO 200 mg QHS EVA Administration Loratadine 10 mg 07/06/23 22:00 07/07/23 22:01 Loratadine 10 Mg Tablet PO 10 mg QHS EVA Administration Losartan Potassium 100 mg 07/06/23 22:00 07/07/23 22:01 Losartan Potassium 100 Mg Tablet PO 100 mg QHS EVA Administration Magnesium Citrate 300 ml 07/06/23 18:47 Magnesium Citrate 300 Ml PO DAILY PRN Constipation Naproxen 500 mg 07/06/23 18:49 07/07/23 21:59 Naproxen 250 Mg Tablet PO 500 mg Q8H PRN Administration Pain Score 4-5 Oxycodone HCl 5 mg 07/06/23 18:49 07/07/23 22:01 Oxycodone 5 Mg Tablet PO 5 mg Q4H PRN PRN Administration Pain Score 6-10 Pantoprazole Sodium 40 mg 07/07/23 10:00 07/08/23 09:06 Pantoprazole Sodium 40 Mg Tablet PO 40 mg DAILY EVA Administration Polyethylene Glycol 17 gm 07/07/23 10:00 07/08/23 09:06 Polyethylene Glycol 3350 17 Gm Packet PO 17 gm DAILY EVA Administration Potassium Chloride 20 meq 07/08/23 08:00 07/08/23 09:06 Potassium Chloride Oral Tablet 20 Meq PO 20 meq DAILYCM EVA Administration Quetiapine Fumarate 200 mg 07/06/23 22:00 07/07/23 21:58 Quetiapine 100 Mg Tablet PO 200 mg QHS EAV Administration Senna/Docusate Sodium 2 tablet 07/06/23 22:00 07/08/23 09:06 Senna/Docusate Sodium 1 Tablet PO 2 tablet BID EVA Administration Sertraline HCl 100 mg 07/07/23 10:00 07/08/23 09:05 Sertraline 100 Mg Tablet PO 100 mg DAILY EVA Administration Sodium Chloride 10 - 40 ml 07/06/23 17:58 07/07/23 09:29 0.9% Saline Lock 10 Ml Syringe IV 10 ml UD PRN Administration SALINE FLUSH Tuberculin PPD 0.1 ml 07/14/23 10:00 Tuberculin,Purif.Prot.Deriv. 50 Tu/Ml Vial ID 07/14/23 10:01 X1 ONE Problem List (Updated 07/06/23 @ 18:[address] Tristan Mane MD) GERD (gastroesophageal reflux disease) (Acute) Hyperlipidemia (Acute) Bipolar disorder (Acute) Debility (Acute) S/P cervical spinal fusion (Acute) Acute hypercapnic respiratory failure (Acute) Cardiopulmonary arrest (Acute) Cervical myelopathy (Acute) MENG (obstructive sleep apnea) (Acute) High blood pressure (Chronic) Vital Signs Temp Pulse Resp BP Pulse Ox O2 Del Method 98.2 F 90 18 138/69 H 98 Room Air 07/07/23 09:26 07/08/23 06:15 07/07/23 09:26 07/08/23 06:15 07/07/23 09:26 07/07/23 09:26 Oxygen Delivery Method Room Air Weight: 88.1 kg Body Mass Index (BMI) 28.6 Sodium 137 mmol/L (136-145) 07/07/23 04:42 Potassium 3.4 mmol/L (3.5-5.1) L 07/07/23 04:42 Chloride 107 mmol/L (98-107) 07/07/23 04:42 Carbon Dioxide 22.0 mmol/L (21.0-32.0) 07/07/23 04:42 Anion Gap 8 (5-15) 07/07/23 04:42 BUN 30 mg/dL (7-18) H 07/07/23 04:42 Creatinine 0.94 mg/dL (0.55-1.02) 07/07/23 04:42 Est GFR (MDRD) Af Amer 78 mL/min (>60) 07/07/23 04:42 Est GFR (MDRD) Non-Af 64 mL/min (>60) 07/07/23 04:42 BUN/Creatinine Ratio 32.1 RATIO (10-20) H 07/07/23 04:42 Glucose 91 mg/dL (74-106) 07/07/23 04:42 Assessment/Plan: 1. Pain: acetaminophen 1000 mg PO Q6H PRN pain (1-3), naproxen 500 mg PO Q8H PRN pain (4-5), oxycodone 5 mg PO Q4H PRN pain (6-10). The patient has used 0 doses of acetaminophen, 2 doses of naproxen and 2 doses of oxycodone so far this admission. Please continue to monitor pain levels, for GI distress, LFTs (AST/ALT = 57/78 U/L on 07/04/23), for drowsiness/dizziness, for respiratory depression, for syncope/ataxia/falls, and for PRN medication usage. 2. Bowel: polyethylene glycol 17 grams PO daily, senna/docusate 2 tablets PO BID, magnesium citrate 300 mL PO daily PRN constipation. The patient has not required any doses of PRN magnesium so far this admission. The patient's last bowel movement was on 07/07/23. Please continue to monitor bowel movements, for constipation, for diarrhea, and PRN medication usage. 3. Hyperlipidemia: atorvastatin 40 mg PO QHS. Please continue to monitor lipid levels (no recent lipid levels documented), LFTs (AST/ALT = 57/78 U/L on 07/04/23), and for myalgias. Please consider ordering a lipid panel if clinically indicated as the patient does not have documented lipid levels within the last year. 5. Hypertension: amlodipine 10 mg PO daily, hydralazine 10 mg PO Q6H PRN SBP > 160, hydrochlorothiazide 12.5 mg PO QHS, losartan 100 mg PO QHS. The patient has used 2 PRN doses of PRN hydralazine so far this admission. Please continue to monitor blood pressures (recent range = 130-191/69/110), for lower extremity edema, renal function (serum creatinine = 0.94 mg/dL with creatine clearance ~ 65 mL/min on 07/07/23), potassium levels (K = 3.4 mmol/L on 07/07/23), and sodium levels (Na = 137 mmol/L on 07/07/23). The patient's blood pressure remains significantly elevated despite the patient's medications. The patient may benefit from the addition of an agent such as spironolactone 25 mg PO daily to help better control her blood pressure. 6. GERD: pantoprazole 40 mg PO daily. Please continue to monitor for s/s of GERD, for diarrhea that could indicate clostridium difficile infection, and for s/s of bone resorption such as bone fractures. 7. Allergic rhinitis: loratadine 10 mg PO QHS. Please continue to monitor allergy symptoms, for dry mouth, dry eyes, and for headache. 8. Vitamin D deficiency: cholecalciferol 25 mcg PO daily. Please continue to monitor for s/s of vitamin D deficiency, as well as vitamin D levels (Vitamin D levels = 28.1 ng/mL on 11/19/22). 9. Muscle spasms: baclofen 10 mg PO QHS. Please continue to monitor for muscle spasms, nausea/vomiting, movement issues, and hypotonia. 10. Potassium deficiency: potassium chloride 20 mEq PO daily with a meal. Please continue to monitor potassium levels (K = 3.4 mmol/L on 07/07/23), and for GI distress with potassium chloride administration. Assessment/Plan for indications treated with psychotropic medications: 1. Anxiety/restlessness/sleep: alprazolam 0.5 mg PO Q4H PRN anxiety/restlessness/sleep. Please see provider note regarding stable chronic long-term use GDR not recommended. Please continue to monitor for sedation, and ataxia. 2. Bipolar disorder: lamotrigine 200 mg PO QHS, quetiapine 200 mg PO QHS. Please see provider notes regarding stable chronic long-term use, GDR not recommended. Please continue to monitor for s/s of aseptic meningitis, for rash, blood counts, for movement disorders, and for anticholinergic side effects such as dry mouth, dry eyes, constipation, and delirium. 3. Depression: sertraline 100 mg PO daily. Please see provider notes regarding stable long-term use, GDR not recommended. Please cotinue to monitor sodium l evels (Na = 137 mmol/L on 07/07/23), and for s/s of serotonin syndrome. Medical chart and medication regimen reviewed. The following medication irregularities or issues were identified: 1. Hyperlipidemia: atorvastatin 40 mg PO QHS. Please consider ordering a lipid panel if clinically indicated as the patient does not have documented lipid levels within the last year. 2. Hypertension: amlodipine 10 mg PO daily, hydralazine 10 mg PO Q6H PRN SBP > 160, hydrochlorothiazide 12.5 mg PO QHS, losartan 100 mg PO QHS. The patient's blood pressure remains significantly elevated despite the patient's medications. The patient may benefit from the addition of an agent such as spironolactone 25 mg PO daily to help better control her blood pressure. Date Date of Note:: 07/08/23 Documented by User: Dr. Tristan Mane MD 07/08/23 17:24 TCU RX Drug Regimen Review Provider Comments Provider responsibility Provider Comments to Recommendations by Pharmacy: Agree
--- NOTE | 2023-07-08 14:51 | CASEMGMT ---
Social Work SW received call from pt's watch caser at [facility], Maria Eugenia. Maria Eugenia provided the background knowledge of pt's mental health history, housing and PLOF. Maria Eugenia explained PLOF as stated in SW assessment. CM noted pt does not let anyone in her house as it is suspected to be a hoarder-like household. When pt and CM meet, it is in Maria Eugenia's car or in the office. Maria Eugenia reports pt is highly intelligent, college educated, however, since mental health diagnoses (pt awarded disability d/t to in 2003) pt has not obtained a job or easy to trust others. Per CM, pt typically has a victim-like mindset. Pt is highly paranoid about her surroundings and other's intentions, which does prohibit her from taking taxi cabs or grocery shop. Pt no longer takes her cell phone outside of the house d/t paranoia. CM noted pt's allergies are not substantiated by a Dr, but is exacerbated by mental health. Pt has trouble sleeping and is paranoid at night, typically has auditory hallucinations, and is hypervigilant. CM reports pt has no formal supports, isolates self and feels targeted by others, and has a very low tolerance for stress. Pt denies enrolling in [facility] d/t paranoia about her allergies and what is involved in the meal preparation. CM acknowledged it has been difficult to assist pt with resources d/t to pt's preferences. Maria Eugenia and pt have a very good rapport and Maria Eugenia assists in any way possible. CM is going to be present for pt's POC mtg for support and information. This worker thanked CM for wealth of knowledge for pt's care during her stay. Deidra Holliday CENSUS CLERK BEAN PICKER
[2023-07-08 15:08] VITALS: BP 148/81; PULSE 86; RESP 16; TEMP 36.1; O2SAT 99
[2023-07-08 17:27] VITALS: BP 179/82; PULSE 80
[2023-07-08] MEDS: hydrALAZINE 10 MG Tablet PO (17:27)
[2023-07-08 19:05] VITALS: BP 148/76; PULSE 89
[2023-07-08] MEDS: Losartan Potassium 100 MG Tablet PO (22:09)
[2023-07-08] MEDS: hydroCHLOROthiazide 12.5mg 12.5 MG PO (22:09)
[2023-07-08] MEDS: Loratadine 10 MG Tablet PO (22:09)
[2023-07-08] MEDS: lamoTRIgine 100 MG Tablet 200 MG PO (22:10)
[2023-07-08] MEDS: Baclofen 10 MG Tablet PO (22:10)
[2023-07-08] MEDS: Atorvastatin Calcium 40 MG Tablet PO (22:10)
[2023-07-08] MEDS: QUEtiapine 100 MG Tablet 200 MG PO (22:10)
[2023-07-08 23:00] VITALS: PULSE 88; RESP 16
[2023-07-09 06:40] LABS: Anion Gap 5 (5-15); BUN 23 mg/dL (7-18); BUN/Creat Ratio 25.7 RATIO (10-20); Calcium,Total 9.1 mg/dL (8.5-10.1); Chloride 103 mmol/L (98-107); EST Glomerular Filtration Rate 68 mL/min (>60); Est Glom Filt Rate - Afr Amer 82 mL/min (>60); Estimated Creatinine Clearance 67.73 ml/min; Glucose 101 mg/dL (74-106); Potassium 3.6 mmol/L (3.5-5.1); Sodium Level 136 mmol/L (136-145)
[2023-07-09] MEDS: Potassium Chloride Oral Tablet 20 MEQ PO (10:02)
[2023-07-09] MEDS: Senna/Docusate Sodium 1 Tablet 2 TABLET PO (10:03)
[2023-07-09] MEDS: amLODIPine 10 MG Tablet PO (10:03)
[2023-07-09] MEDS: Pantoprazole Sodium 40 MG Tablet PO (10:03)
[2023-07-09] MEDS: Sertraline 100 MG Tablet PO (10:03)
[2023-07-09] MEDS: Polyethylene Glycol 3350 17 GM PACKET PO (10:03)
[2023-07-09] MEDS: Cholecalciferol (VIT D3) 25 MCG TABLET (1,000 UNITS) PO (10:03)
[2023-07-09] MEDS: ALPRAZolam 0.5 MG Tablet PO (10:12)
[2023-07-09] MEDS: COVID VAC 23-24(12UP)(ANDU)/PF 50 MCG/0.5 ML SYRINGE IM (10:13)
[2023-07-09 12:18] VITALS: BMI 28.0
[2023-07-09 13:57] VITALS: BP 165/105; PULSE 89; RESP 19; TEMP 35.8; O2SAT 98
[2023-07-09 14:05] VITALS: BP 165/105; PULSE 89
[2023-07-09] MEDS: hydrALAZINE 10 MG Tablet PO ×2 (14:05→21:56)
--- NOTE | 2023-07-09 14:38 | CASEMGMT ---
Addendum entered by Deidra Holliday 07/09/23 17:01: Pt did agree to free consultation with [facility]. SW placed secure online referral for pt on this date. Original Note: Social Work Met with patient to complete initial assessment. Introduced self and role. Verified contacts. Confirmed code status as full code. Pt wishes to be complete advanced directives. SW to complete prior to DC as time allows. SW educated to Medicare benefit and [facility] is not INN with Medicaid, thus copays of $200/day will begin on day 21 which is 08/05, if pt is not discharged. Pt wishes to DC before the end of June, but without the soft collar. SW to collaborate with IDT for further instruction on the collar and precautions. SW inquired about the possibility of moving closer to brother for support. Pt confirmed and would move to [place], but no concrete plans have been discussed. Pt expressed issues with transportation. SW offered to provide resources. Pt appreciative. Pt has POC mtg scheduled the following day and more details will be discussed for her treatment plan. SW to provide resources at that time. Will continue to follow. Deidra Holliday, ARIANA ESTRADA
--- NOTE | 2023-07-09 14:43 | CHAPLAIN ---
Type of Pastoral Visit _x__ Initial Visit ___ Follow-up Visit ___ On-call Visit ___ General Patient Visit ___ Spiritual Assessment ___ Family Conference ___ Bereavement ___ Rapid Response ___ Code Blue ___ Other (describe below) Pastoral Care Referral From _x__ Patient ___ Family ___ Nurse ___ Physician ___ Assistant Producer ___ Hand Compositor ___ Other (describe below) Sacrament/Intervention _x__ Active listening ___ Anointing ___ Muslim ___ Bereavement ___ Communion ___ Nikia exploration ___ ___ Life review ___ Prayer ___ Reconciliation ___ Sacrament of Sick _x__ Supportive presence ___ Wedding ___ Other (describe below) Pastoral Comments patient has a visitor so this assistant casino shift manager made an introduction and offer of spiritual care; pt reports on her situation so far and what her needs are for getting to rest/sleep; future visits are welcome
[2023-07-09 20:35] VITALS: PULSE 82; RESP 16
[2023-07-09] MEDS: Losartan Potassium 100 MG Tablet PO (20:57)
[2023-07-09] MEDS: Loratadine 10 MG Tablet PO (20:57)
[2023-07-09] MEDS: hydroCHLOROthiazide 12.5mg 12.5 MG PO (20:58)
[2023-07-09] MEDS: Baclofen 10 MG Tablet PO (20:58)
[2023-07-09] MEDS: Atorvastatin Calcium 40 MG Tablet PO (20:58)
[2023-07-09] MEDS: lamoTRIgine 100 MG Tablet 200 MG PO (20:58)
[2023-07-09] MEDS: QUEtiapine 100 MG Tablet 200 MG PO (20:59)
[2023-07-09 21:56] VITALS: BP 178/75; PULSE 82
--- NOTE | 2023-07-09 22:00 | NURSING ---
Patient's BP at HS was 178/75, p 82. Apresoline administered as directed. Will continue to monitor.
[2023-07-10] MEDS: Potassium Chloride Oral Tablet 20 MEQ PO (10:03)
[2023-07-10] MEDS: amLODIPine 10 MG Tablet PO (10:04)
[2023-07-10] MEDS: Sertraline 100 MG Tablet PO (10:04)
[2023-07-10] MEDS: Cholecalciferol (VIT D3) 25 MCG TABLET (1,000 UNITS) PO (10:04)
[2023-07-10] MEDS: Pantoprazole Sodium 40 MG Tablet PO (10:04)
--- NOTE | 2023-07-10 10:07 | CASEMGMT ---
Social Work IDT met with patient and brother via conference call for care plan meeting. Discussed patient's progress in PT/OT/SN. Educated to Medicare benefit and NADIA coverage. Day 21: 08/05. Goal DC to avoid DC beyond day 21. Explained Drs orders stated soft collar will be on for 12 weeks. Pt has f/u appt with on 07/17. Pt to follow up with questions with . YASH broached topic of possible SNF. Educated to NADIA coverage at a SNF, if pt cannot/doesn't want to go home with collar. Pt does not want [facility]. YASH offered to provide list of other [facility] SNF options with quality and resource data via [employer]. Pt agreed. YASH will continue to follow for DC planning. ARIANA Fernando VITICULTURE TEACHER
[2023-07-10] MEDS: ALPRAZolam 0.5 MG Tablet PO (10:38)
[2023-07-10] MEDS: Polyethylene Glycol 3350 17 GM PACKET PO (10:38)
--- NOTE | 2023-07-10 11:53 | MDS.RN ---
Pain interview for mds completed.
[2023-07-10 16:00] VITALS: BP 154/83; PULSE 85; RESP 16; TEMP 35.9; O2SAT 95
[2023-07-10 21:00] VITALS: PULSE 87; RESP 14; O2SAT 98
[2023-07-10] MEDS: Naproxen 250 MG Tablet 500 MG PO (21:29)
[2023-07-10] MEDS: Baclofen 10 MG Tablet PO (21:30)
[2023-07-10] MEDS: Atorvastatin Calcium 40 MG Tablet PO (21:30)
[2023-07-10] MEDS: QUEtiapine 100 MG Tablet 200 MG PO (21:31)
[2023-07-10] MEDS: hydroCHLOROthiazide 12.5mg 12.5 MG PO (21:31)
[2023-07-10] MEDS: Losartan Potassium 100 MG Tablet PO (21:31)
[2023-07-10] MEDS: lamoTRIgine 100 MG Tablet 200 MG PO (21:32)
[2023-07-10] MEDS: Loratadine 10 MG Tablet PO (21:33)
[2023-07-11 09:32] VITALS: BP 150/76; PULSE 81; RESP 16; TEMP 36.3; O2SAT 96
[2023-07-11] MEDS: Potassium Chloride Oral Tablet 20 MEQ PO (09:34)
[2023-07-11] MEDS: Cholecalciferol (VIT D3) 25 MCG TABLET (1,000 UNITS) PO (09:35)
[2023-07-11] MEDS: Polyethylene Glycol 3350 17 GM PACKET PO (09:35)
[2023-07-11] MEDS: Pantoprazole Sodium 40 MG Tablet PO (09:35)
[2023-07-11] MEDS: amLODIPine 10 MG Tablet PO (09:35)
[2023-07-11] MEDS: Senna/Docusate Sodium 1 Tablet 2 TABLET PO (09:36)
[2023-07-11] MEDS: Sertraline 100 MG Tablet PO (09:36)
[2023-07-11 22:05] VITALS: BP 157/88; PULSE 79
[2023-07-11] MEDS: lamoTRIgine 100 MG Tablet 200 MG PO (22:16)
[2023-07-11] MEDS: Losartan Potassium 100 MG Tablet PO (22:16)
[2023-07-11] MEDS: hydroCHLOROthiazide 12.5mg 12.5 MG PO (22:17)
[2023-07-11] MEDS: Baclofen 10 MG Tablet PO (22:17)
[2023-07-11] MEDS: Naproxen 250 MG Tablet 500 MG PO (22:17)
[2023-07-11] MEDS: Loratadine 10 MG Tablet PO (22:17)
[2023-07-11] MEDS: Atorvastatin Calcium 40 MG Tablet PO (22:17)
[2023-07-11] MEDS: QUEtiapine 100 MG Tablet 200 MG PO (22:18)
[2023-07-11 23:30] VITALS: BP 86/46; PULSE 91; RESP 16; TEMP 36.6; O2SAT 98
--- NOTE | 2023-07-11 23:30 | NURSING ---
Pt taken to BR per IT TECHNICIAN. Became dizzy, lightheaded, and saw black spots. Admits she was straining to a degree to have a bm. Denies any chest pain, shortness of breath, nausea, or vomiting. Assisted back to bed x 2 staff. Skin color slightly pale/sallow. Vitals obtained and recorded. Apical regular. Pt is alert to verbal and tactile stimulation throughout interaction. Speech is clear, oriented x 3, and answers all questions appropriately. BLE actively mobile- primarily d/t muscle spasms. Offered Tylenol for discomfort and pt declines. Remained at bedside for approximately 45 minutes. Pt reports symptoms of dizziness and lightheadedness have improved. Seeing black spots has resolved. Informed pt bedpan will be utilized for toileting for the remainder of the shift to maintain safety. Could progress to BSC during the day tomorrow if sxs resolved, then return to ambulating to the bathroom with assist x 1. Pt is agreeable to plan. Is sipping water at bedside. BLE elevated on three pillows and foot of bed mechanically elevated slightly to pt comfort. BiPAP mask applied. Positioned for comfort. Pt positions self on rt side. Will continue to monitor.
[2023-07-11 23:55] VITALS: BP 91/51; PULSE 93
[2023-07-12 03:36] VITALS: BP 86/48; PULSE 91
[2023-07-12 06:47] VITALS: BP 132/70; PULSE 75
--- NOTE | 2023-07-12 06:48 | NURSING ---
Patient awake, A&O x3, pleasant. Blood pressure 132/70, Pulse 75. Patient states she is feeling better. Dressing to neck dry and intact, soft cervical collar in place. Will continue to monitor.
[2023-07-12] MEDS: ALPRAZolam 0.5 MG Tablet PO (09:05)
[2023-07-12] MEDS: Pantoprazole Sodium 40 MG Tablet PO (09:05)
[2023-07-12] MEDS: Polyethylene Glycol 3350 17 GM PACKET PO (09:06)
[2023-07-12] MEDS: Potassium Chloride Oral Tablet 20 MEQ PO (09:06)
[2023-07-12] MEDS: amLODIPine 10 MG Tablet PO (09:06)
[2023-07-12] MEDS: Sertraline 100 MG Tablet PO (09:06)
[2023-07-12] MEDS: Cholecalciferol (VIT D3) 25 MCG TABLET (1,000 UNITS) PO (09:06)
[2023-07-12 09:30] VITALS: BP 142/86
--- NOTE | 2023-07-12 14:03 | CASEMGMT ---
Addendum entered by Deidra Holliday 07/15/23 13:24: Final scoring correction: PHQ-2 (). Addendum entered by Deidra Holliday 07/15/23 13:17: Correction to scores: BIMS () and PHQ-9 (03/14) Original Note: PHQ9 () and BIMS (03/16 ) assessments completed on this date for MDS assessment. Pt stating she has been feeling improvement in her mood as medical and functional concerns are improving. She is feeling less frustrated and appetite is improving and fidgeting has stopped now that she is able to participate in therapy. NATALIE Diego
[2023-07-12 16:00] VITALS: BP 151/82; PULSE 78; RESP 20; TEMP 37.1; O2SAT 97
[2023-07-12] MEDS: oxyCODONE 5 MG Tablet PO (21:43)
[2023-07-12] MEDS: Baclofen 10 MG Tablet PO (21:44)
[2023-07-12] MEDS: Loratadine 10 MG Tablet PO (21:44)
[2023-07-12] MEDS: hydroCHLOROthiazide 12.5mg 12.5 MG PO (21:44)
[2023-07-12] MEDS: Atorvastatin Calcium 40 MG Tablet PO (21:46)
[2023-07-12] MEDS: lamoTRIgine 100 MG Tablet 200 MG PO (21:47)
[2023-07-12] MEDS: Losartan Potassium 100 MG Tablet PO (21:47)
[2023-07-12] MEDS: QUEtiapine 100 MG Tablet 200 MG PO (21:48)
[2023-07-13] MEDS: ALPRAZolam 0.5 MG Tablet PO (09:04)
[2023-07-13] MEDS: Polyethylene Glycol 3350 17 GM PACKET PO (09:04)
[2023-07-13] MEDS: amLODIPine 10 MG Tablet PO (09:05)
[2023-07-13] MEDS: Senna/Docusate Sodium 1 Tablet 2 TABLET PO (09:05)
[2023-07-13] MEDS: Pantoprazole Sodium 40 MG Tablet PO (09:05)
[2023-07-13] MEDS: Cholecalciferol (VIT D3) 25 MCG TABLET (1,000 UNITS) PO (09:05)
[2023-07-13] MEDS: Potassium Chloride Oral Tablet 20 MEQ PO (09:06)
[2023-07-13] MEDS: Sertraline 100 MG Tablet PO (09:06)
[2023-07-13 09:08] VITALS: BP 121/61; PULSE 85
[2023-07-13 12:00] VITALS: O2SAT 99
[2023-07-13 16:00] VITALS: BP 128/68; PULSE 79; RESP 16; TEMP 35.8; O2SAT 100
[2023-07-13 20:00] VITALS: BP 136/89; PULSE 85
[2023-07-13] MEDS: hydroCHLOROthiazide 12.5mg 12.5 MG PO (20:18)
[2023-07-13] MEDS: Losartan Potassium 100 MG Tablet PO (20:18)
--- NOTE | 2023-07-13 20:30 | NURSING ---
Surgical dressing changed to anterior neck d/t soiling. Small amount of sanguinous drainage noted. One steri strip removed, has one remaining. Incision well approximated. Some ecchymosis noted. Neck mildly swollen- no redness or warmth noted. One split 4x4 applied to incision and secured w/ an opsite. Will continue to monitor.
[2023-07-13] MEDS: QUEtiapine 100 MG Tablet 200 MG PO (22:55)
[2023-07-13] MEDS: lamoTRIgine 100 MG Tablet 200 MG PO (22:56)
[2023-07-13] MEDS: Baclofen 10 MG Tablet PO (22:56)
[2023-07-13] MEDS: Loratadine 10 MG Tablet PO (22:56)
[2023-07-13] MEDS: Naproxen 250 MG Tablet 500 MG PO (22:57)
[2023-07-13] MEDS: Atorvastatin Calcium 40 MG Tablet PO (22:57)
[2023-07-13 23:00] VITALS: BP 155/86; PULSE 73
[2023-07-14 06:08] LABS: Absolute Lymphocyte Count 0.88 X10^3/uL (0.83-4.51); Absolute Neutrophil Count 3.4 X10^3/uL (2.0-7.7); Basophil# 0.04 X10^3/uL; Basophil% 0.8 % (0-1); Eosinophil# 0.18 X10^3/uL; Eosinophils% 3.7 % (0-5); Hematocrit 29.7 % (37-47); Hemoglobin 9.8 g/dL (12.0-15.0); Lymphocyte # 0.88 X10^3/ul (0.83-4.51); Lymphocyte % 17.8 % (19-41); Mean Corpuscular Hgb 30.7 pg (27.0-32.0); Mean Corpuscular Volume 93.1 fL (81-99); Mean Platelet Vol. 9.8 fl (6.2-12.0); Monocyte# 0.39 X10^3/uL; Monocyte% 7.9 % (0-10); NRBC Flagged by Analyzer 0 % (0-5); Neutrophil # 3.37 X10^3/uL (2.7-7.7); Neutrophil % 68.4 % (47-70); Platelet Count 239 K/mm3 (150-450); RBC Distribution Width CV 13.1 % (11.6-14.6); RBC Distribution Width SD 44.8 fl (35.1-43.9); Red Blood Count 3.19 M/mm3 (4.2-5.4); White Blood Count 4.9 K/mm3 (4.4-11.0)
[2023-07-14 06:30] LABS: Anion Gap 9 (5-15); BUN 23 mg/dL (7-18); Calcium,Total 8.7 mg/dL (8.5-10.1); Chloride 101 mmol/L (98-107); Creatinine, Serum 1.15 mg/dL (0.55-1.02); EST Glomerular Filtration Rate 51 mL/min (>60); Est Glom Filt Rate - Afr Amer 61 mL/min (>60); Estimated Creatinine Clearance 53.01 ml/min; Glucose 85 mg/dL (74-106); Potassium 3.9 mmol/L (3.5-5.1); Sodium Level 134 mmol/L (136-145)
[2023-07-14] MEDS: ALPRAZolam 0.5 MG Tablet PO (08:21)
[2023-07-14] MEDS: Senna/Docusate Sodium 1 Tablet 2 TABLET PO (08:21)
[2023-07-14] MEDS: amLODIPine 10 MG Tablet PO (08:21)
[2023-07-14] MEDS: Polyethylene Glycol 3350 17 GM PACKET PO (08:21)
[2023-07-14] MEDS: Cholecalciferol (VIT D3) 25 MCG TABLET (1,000 UNITS) PO (08:21)
[2023-07-14] MEDS: Pantoprazole Sodium 40 MG Tablet PO (08:21)
[2023-07-14] MEDS: Sertraline 100 MG Tablet PO (08:21)
[2023-07-14] MEDS: Potassium Chloride Oral Tablet 20 MEQ PO (08:21)
[2023-07-14 08:25] VITALS: BP 130/79; PULSE 91
[2023-07-14] MEDS: Tuberculin,Purif.prot.deriv. 50 TU/ML Vial 0.1 ML ID (10:38)
[2023-07-14 16:00] VITALS: BP 126/74; PULSE 87; RESP 16; TEMP 35.8; O2SAT 99
--- NOTE | 2023-07-14 16:40 | NURSING ---
Addendum entered by Lynsey Haile 07/14/23 18:37: Updated Pt's family on positive covid pt. Original Note: Pt updated on positive covid pt.
[2023-07-14] MEDS: Losartan Potassium 100 MG Tablet PO (22:50)
[2023-07-14] MEDS: lamoTRIgine 100 MG Tablet 200 MG PO (22:50)
[2023-07-14] MEDS: Atorvastatin Calcium 40 MG Tablet PO (22:50)
[2023-07-14] MEDS: QUEtiapine 100 MG Tablet 200 MG PO (22:50)
[2023-07-14] MEDS: hydroCHLOROthiazide 12.5mg 12.5 MG PO (22:50)
[2023-07-14] MEDS: Loratadine 10 MG Tablet PO (22:50)
[2023-07-14] MEDS: Baclofen 10 MG Tablet PO (22:50)
--- NOTE | 2023-07-15 09:05 | NURSING ---
Cigar Bander Hand Note; MDS for 07/13/2023 Complete
[2023-07-15] MEDS: Potassium Chloride Oral Tablet 20 MEQ PO (09:27)
[2023-07-15] MEDS: amLODIPine 10 MG Tablet PO (09:27)
[2023-07-15] MEDS: Sertraline 100 MG Tablet PO (09:27)
[2023-07-15] MEDS: Polyethylene Glycol 3350 17 GM PACKET PO (09:27)
[2023-07-15] MEDS: Cholecalciferol (VIT D3) 25 MCG TABLET (1,000 UNITS) PO (09:28)
[2023-07-15] MEDS: Pantoprazole Sodium 40 MG Tablet PO (09:28)
--- NOTE | 2023-07-15 13:23 | NURSING ---
Updated patient and family that a patient on the unit tested covid positive
[2023-07-15 13:57] VITALS: BP 139/75; PULSE 87; RESP 16; TEMP 36.2; O2SAT 96
[2023-07-15 20:48] VITALS: BP 152/93; PULSE 87; O2SAT 99
[2023-07-15] MEDS: Senna/Docusate Sodium 1 Tablet 2 TABLET PO (21:18)
[2023-07-15] MEDS: lamoTRIgine 100 MG Tablet 200 MG PO (21:18)
[2023-07-15] MEDS: Atorvastatin Calcium 40 MG Tablet PO (21:18)
[2023-07-15] MEDS: Baclofen 10 MG Tablet PO (21:18)
[2023-07-15] MEDS: QUEtiapine 100 MG Tablet 200 MG PO (21:18)
[2023-07-15] MEDS: hydroCHLOROthiazide 12.5mg 12.5 MG PO (21:18)
[2023-07-15] MEDS: Loratadine 10 MG Tablet PO (21:18)
[2023-07-15] MEDS: Losartan Potassium 100 MG Tablet PO (21:19)
[2023-07-16] MEDS: amLODIPine 10 MG Tablet PO (09:12)
[2023-07-16] MEDS: Sertraline 100 MG Tablet PO (09:12)
[2023-07-16] MEDS: Senna/Docusate Sodium 1 Tablet 2 TABLET PO (09:12)
[2023-07-16] MEDS: Potassium Chloride Oral Tablet 20 MEQ PO (09:12)
[2023-07-16] MEDS: Pantoprazole Sodium 40 MG Tablet PO (09:12)
[2023-07-16] MEDS: Polyethylene Glycol 3350 17 GM PACKET PO (09:13)
[2023-07-16] MEDS: Cholecalciferol (VIT D3) 25 MCG TABLET (1,000 UNITS) PO (09:13)
[2023-07-16] MEDS: ALPRAZolam 0.5 MG Tablet PO (09:22)
--- NOTE | 2023-07-16 09:36 | RAD_ITS ---
STUDY: X-RAY - CERVICAL SPINE REASON FOR EXAM: Female, 62 years old. Two-week follow-up after ORIF. TECHNIQUE: 2 view(s) of the cervical spine were obtained. COMPARISON: None FINDINGS: Stable osteopenia. Anterior fusion from C3 to C5 with intervertebral disc prostheses. Diffuse uncovertebral and facet sclerosis. Disc degeneration at C2-3, C5-6 and C6-7 with osteophytes. Carotid calcification. RAD/Cerv Spine 2 or 3 Views IMPRESSION: Osteopenia with uncomplicated anterior fusion from C3 to C5 with intervertebral disc prostheses. Cervical spondylosis. Electronically Signed: Rob Lindquist MD at 14:38 EST ,
[2023-07-16 10:09] VITALS: BMI 26.6
--- NOTE | 2023-07-16 14:25 | CHAPLAIN ---
Type of Pastoral Visit ___ Initial Visit _x__ Follow-up Visit ___ On-call Visit ___ General Patient Visit ___ Spiritual Assessment ___ Family Conference ___ Bereavement ___ Rapid Response ___ Code Blue ___ Other (describe below) Pastoral Care Referral From _x__ Patient ___ Family ___ Nurse ___ Physician ___ Automotive Refinisher ___ Communications Billing Analyst ___ Other (describe below) Sacrament/Intervention _x__ Active listening ___ Anointing ___ Jainism ___ Bereavement ___ Communion ___ Nikia exploration ___ _x__ Life review _x__ Prayer ___ Reconciliation ___ Sacrament of Sick _x__ Supportive presence ___ Wedding ___ Other (describe below) Pastoral Comments this was a follow up visit after a brief visit last week; pt speaks of her concerns or decisions to be made about her future, in particular her living arrangements; pt has a good friend helping her but otherwise has limited support; pt is awaiting DR appointment and answers on her progress; pt welcomes visit and prayer
[2023-07-16 16:00] VITALS: BP 133/60; PULSE 83; RESP 16; TEMP 36.3; O2SAT 98
[2023-07-16 21:19] VITALS: BP 136/82; PULSE 82; RESP 16
[2023-07-16] MEDS: Loratadine 10 MG Tablet PO (21:52)
[2023-07-16] MEDS: lamoTRIgine 100 MG Tablet 200 MG PO (21:52)
[2023-07-16] MEDS: Naproxen 250 MG Tablet 500 MG PO (21:52)
[2023-07-16] MEDS: QUEtiapine 100 MG Tablet 200 MG PO (21:52)
[2023-07-16] MEDS: hydroCHLOROthiazide 12.5mg 12.5 MG PO (21:52)
[2023-07-16] MEDS: Losartan Potassium 100 MG Tablet PO (21:53)
[2023-07-16] MEDS: Atorvastatin Calcium 40 MG Tablet PO (21:53)
[2023-07-16] MEDS: Baclofen 10 MG Tablet PO (21:53)
[2023-07-17] MEDS: amLODIPine 10 MG Tablet PO (10:08)
[2023-07-17] MEDS: Potassium Chloride Oral Tablet 20 MEQ PO (10:08)
[2023-07-17] MEDS: Polyethylene Glycol 3350 17 GM PACKET PO (10:08)
[2023-07-17] MEDS: Pantoprazole Sodium 40 MG Tablet PO (10:08)
[2023-07-17] MEDS: Sertraline 100 MG Tablet PO (10:09)
[2023-07-17] MEDS: Cholecalciferol (VIT D3) 25 MCG TABLET (1,000 UNITS) PO (10:09)
[2023-07-17] MEDS: ALPRAZolam 0.5 MG Tablet PO (10:15)
[2023-07-17 12:09] VITALS: BP 125/68; PULSE 75; RESP 16; TEMP 36.6; O2SAT 97
--- NOTE | 2023-07-17 15:33 | NURSING ---
Updated patient that staff member tested positive for covid. She did not want family updated.
--- NOTE | 2023-07-17 16:21 | NURSING ---
Call from Dr. Thornton's office. Per staff, he had an add on surgery today, unsure if he will be by to see her tonight. But if not today, he will be by tomorrow. Updated patient in room.
[2023-07-17 22:00] VITALS: BP 146/80; PULSE 77
[2023-07-17] MEDS: QUEtiapine 100 MG Tablet 200 MG PO (22:23)
[2023-07-17] MEDS: lamoTRIgine 100 MG Tablet 200 MG PO (22:23)
[2023-07-17] MEDS: Losartan Potassium 100 MG Tablet PO (22:23)
[2023-07-17] MEDS: hydroCHLOROthiazide 12.5mg 12.5 MG PO (22:23)
[2023-07-17] MEDS: Baclofen 10 MG Tablet PO (22:23)
[2023-07-17] MEDS: Loratadine 10 MG Tablet PO (22:23)
[2023-07-17] MEDS: Atorvastatin Calcium 40 MG Tablet PO (22:23)
[2023-07-17] MEDS: Naproxen 250 MG Tablet 500 MG PO (22:24)
--- NOTE | 2023-07-17 22:31 | NURSING ---
Patient stating she is somewhat agitated tonight, things did not go the way she expected them to today. C/O headache. Talked with her about things that are out of her control, and to try not to stress over them. She verbalized understanding. Naprosyn administered for headache. Will continue to monitor.
--- NOTE | 2023-07-18 07:54 | MDS.RN ---
Information for the mds was obtained from review of the clinical record, interview of resident, staff, and direct observation of resident's care.
[2023-07-18 09:10] VITALS: BP 117/62; PULSE 78; RESP 16; TEMP 36.4; O2SAT 99
[2023-07-18] MEDS: Polyethylene Glycol 3350 17 GM PACKET PO (09:12)
[2023-07-18] MEDS: Pantoprazole Sodium 40 MG Tablet PO (09:12)
[2023-07-18] MEDS: Cholecalciferol (VIT D3) 25 MCG TABLET (1,000 UNITS) PO (09:12)
[2023-07-18] MEDS: amLODIPine 10 MG Tablet PO (09:12)
[2023-07-18] MEDS: Potassium Chloride Oral Tablet 20 MEQ PO (09:12)
[2023-07-18] MEDS: Sertraline 100 MG Tablet PO (09:12)
[2023-07-18] MEDS: ALPRAZolam 0.5 MG Tablet PO (09:16)
--- NOTE | 2023-07-18 09:21 | NURSING ---
Dr Thornton here and saw pt, wants incision left YULI, would like pt to ambulate halls approx 10x day. his office will call her to make f/u appt in 1 month from today. reapplied neck brace, pt assisted to BR
--- NOTE | 2023-07-18 10:23 | NURSING ---
therapy made pt up ad ryan with walker in room and halls. pt aware to call for assist if needed.
[2023-07-18 18:24] VITALS: RESP 16
[2023-07-18] MEDS: Naproxen 250 MG Tablet 500 MG PO (22:12)
[2023-07-18] MEDS: Atorvastatin Calcium 40 MG Tablet PO (22:12)
[2023-07-18] MEDS: Baclofen 10 MG Tablet PO (22:13)
[2023-07-18] MEDS: hydroCHLOROthiazide 12.5mg 12.5 MG PO (22:13)
[2023-07-18] MEDS: Losartan Potassium 100 MG Tablet PO (22:13)
[2023-07-18] MEDS: lamoTRIgine 100 MG Tablet 200 MG PO (22:13)
[2023-07-18] MEDS: Loratadine 10 MG Tablet PO (22:13)
[2023-07-18] MEDS: QUEtiapine 100 MG Tablet 200 MG PO (22:13)
[2023-07-18 22:16] VITALS: BP 141/73; PULSE 70; RESP 16
[2023-07-19 09:20] VITALS: PULSE 91; RESP 18
[2023-07-19] MEDS: Potassium Chloride Oral Tablet 20 MEQ PO (09:20)
[2023-07-19] MEDS: Senna/Docusate Sodium 1 Tablet 2 TABLET PO (10:21)
[2023-07-19] MEDS: amLODIPine 10 MG Tablet PO (10:21)
[2023-07-19] MEDS: Pantoprazole Sodium 40 MG Tablet PO (10:21)
[2023-07-19] MEDS: Sertraline 100 MG Tablet PO (10:21)
[2023-07-19] MEDS: Polyethylene Glycol 3350 17 GM PACKET PO (10:21)
[2023-07-19] MEDS: Cholecalciferol (VIT D3) 25 MCG TABLET (1,000 UNITS) PO (10:22)
[2023-07-19 15:29] VITALS: BP 119/73; PULSE 90; RESP 16; TEMP 37.2; O2SAT 97
[2023-07-19 15:32] VITALS: BP 119/73; PULSE 90; RESP 16; TEMP 37.2; O2SAT 97
--- NOTE | 2023-07-19 16:36 | CASEMGMT ---
Social Work SW received call from pt's CM to follow up on DC planning. SW educated to day 21 is 07/26 and this worker was planning to complete advanced directives with pt and speak about DC plans this date. CM appreciative as pt has expressed not knowing the timeframe and plan for DC. SW met with patient. Provided active listening to pt's questions and concerns. SW assisted in clarifying and answering questions. pt agreed to have this worker write down topics of discussion. Pt wishes to be home once the soft collar is removed. Per pt, during Dr. Thornton visit on 07/08, pt can get soft collar removed 08/01 and has another f/u appt with on 08/15. SW counted Medicare days with pt as a visual for pt comprehension. YASH outlined pt would DC from TCU on 07/26; soft collar removal 08/01; f/u appt 08/15. SW discussed and pt agreed to transferring to a SNF skilled until soft collar is removed, participate in therapy a few days after removal, and then can DC home prior to [facility] and f/u appt. SW ensured pt still had SNF list provided last week. Pt agreed to review those options this weekend and provide choices on Saturday. Pt denied to complete AD at this visit but will revisit on Saturday to completion. Pt expressed feeling better and understanding the goals moving forward. SW will continue to follow. ARIANA Fernando MARINE DIVER
[2023-07-19] MEDS: Naproxen 250 MG Tablet 500 MG PO (22:29)
[2023-07-19] MEDS: QUEtiapine 100 MG Tablet 200 MG PO (22:30)
[2023-07-19] MEDS: lamoTRIgine 100 MG Tablet 200 MG PO (22:30)
[2023-07-19] MEDS: Baclofen 10 MG Tablet PO (22:30)
[2023-07-19] MEDS: Losartan Potassium 100 MG Tablet PO (22:30)
[2023-07-19] MEDS: Loratadine 10 MG Tablet PO (22:31)
[2023-07-19] MEDS: hydroCHLOROthiazide 12.5mg 12.5 MG PO (22:31)
[2023-07-19] MEDS: Atorvastatin Calcium 40 MG Tablet PO (22:31)
[2023-07-19 22:35] VITALS: BP 156/77; PULSE 78; RESP 20
[2023-07-20] VITALS: BP 84/45; PULSE 86; RESP 16; TEMP 36.6; O2SAT 97
--- NOTE | 2023-07-20 00:47 | NURSING ---
Addendum entered by Myron Zamora 07/20/23 02:35: Presents in bed, responds to verbal stimuli. No distress observed or reported. No further complaints of dizziness. BP 117/64, pulse 74. Requests oral suction for comfort, to get the saliva out. No distress observed or reported. Call light in reach. Denies further requests. Addendum entered by Myron Zamora 07/20/23 01:56: correction: IV Normal saline 1L BOLUS x1 Original Note: Patient reports straining with bowel movement, states became dizzy seeing stars, Bp 84/45, pulse 91, temp 97.8, resps 20. Assisted to bed x2 staff assist. BP 82/43. Dr. Mane contacted regarding patient report of dizziness, seeing stars and hypotension. Dr. Mane also notified of patient c/o increased saliva, hard too swallow so much. New orders received for IV Normal saline 1L x1, recheck BP in one hour, oral suction PRN for increased salivation. orders repeated back.
[2023-07-20] MEDS: 0.9% Normal Saline (1000mL) 1,000 ML 999 ML IV (01:20)
[2023-07-20 02:24] VITALS: BP 117/64; PULSE 74; RESP 18
[2023-07-20 02:40] VITALS: RESP 16; O2SAT 97
[2023-07-20] MEDS: Polyethylene Glycol 3350 17 GM PACKET PO (09:48)
[2023-07-20] MEDS: Pantoprazole Sodium 40 MG Tablet PO (09:48)
[2023-07-20] MEDS: amLODIPine 10 MG Tablet PO (09:48)
[2023-07-20] MEDS: Potassium Chloride Oral Tablet 20 MEQ PO (09:48)
[2023-07-20] MEDS: Cholecalciferol (VIT D3) 25 MCG TABLET (1,000 UNITS) PO (09:49)
[2023-07-20] MEDS: Senna/Docusate Sodium 1 Tablet 2 TABLET PO ×2 (09:49→23:40)
[2023-07-20] MEDS: Sertraline 100 MG Tablet PO (09:49)
[2023-07-20 14:25] VITALS: BP 135/79; PULSE 78; RESP 16; TEMP 36.2; O2SAT 99
[2023-07-20 15:00] VITALS: BP 135/70; PULSE 78; RESP 16; TEMP 36.2; O2SAT 99
[2023-07-20] MEDS: hydroCHLOROthiazide 12.5mg 12.5 MG PO (23:41)
[2023-07-20] MEDS: Loratadine 10 MG Tablet PO (23:41)
[2023-07-20] MEDS: Losartan Potassium 100 MG Tablet PO (23:41)
[2023-07-20] MEDS: Baclofen 10 MG Tablet PO (23:41)
[2023-07-20] MEDS: QUEtiapine 100 MG Tablet 200 MG PO (23:42)
[2023-07-20] MEDS: Atorvastatin Calcium 40 MG Tablet PO (23:42)
[2023-07-20] MEDS: lamoTRIgine 100 MG Tablet 200 MG PO (23:43)
[2023-07-20] MEDS: 0.9% Saline Lock 10 ML Syringe IV (23:44)
[2023-07-20] MEDS: Naproxen 250 MG Tablet 500 MG PO (23:47)
[2023-07-21 08:55] LABS: Absolute Lymphocyte Count 0.83 X10^3/uL (0.83-4.51); Absolute Neutrophil Count 2.4 X10^3/uL (2.0-7.7); Basophil# 0.05 X10^3/uL; Basophil% 1.3 % (0-1); Eosinophil# 0.23 X10^3/uL; Eosinophils% 6.1 % (0-5); Hematocrit 31.2 % (37-47); Hemoglobin 10.7 g/dL (12.0-15.0); Lymphocyte # 0.83 X10^3/ul (0.83-4.51); Mean Corp Hgb Conc 34.3 g/dL (32-36); Mean Corpuscular Hgb 30.7 pg (27.0-32.0); Mean Corpuscular Volume 89.7 fL (81-99); Mean Platelet Vol. 9.9 fl (6.2-12.0); Monocyte# 0.27 X10^3/uL; Monocyte% 7.1 % (0-10); NRBC Flagged by Analyzer 0 % (0-5); Neutrophil # 2.38 X10^3/uL (2.7-7.7); Platelet Count 353 K/mm3 (150-450); RBC Distribution Width CV 12.9 % (11.6-14.6); RBC Distribution Width SD 42.3 fl (35.1-43.9); Red Blood Count 3.48 M/mm3 (4.2-5.4); White Blood Count 3.8 K/mm3 (4.4-11.0)
[2023-07-21 09:24] LABS: Anion Gap 6 (5-15); BUN 12 mg/dL (7-18); BUN/Creat Ratio 12.1 RATIO (10-20); Calcium,Total 9.7 mg/dL (8.5-10.1); Chloride 95 mmol/L (98-107); Creatinine, Serum 0.99 mg/dL (0.55-1.02); EST Glomerular Filtration Rate 60 mL/min (>60); Est Glom Filt Rate - Afr Amer 73 mL/min (>60); Estimated Creatinine Clearance 61.57 ml/min; Glucose 93 mg/dL (74-106); Potassium 3.5 mmol/L (3.5-5.1); Sodium Level 128 mmol/L (136-145)
[2023-07-21] MEDS: amLODIPine 10 MG Tablet PO (10:17)
[2023-07-21] MEDS: Potassium Chloride Oral Tablet 20 MEQ PO (10:17)
[2023-07-21] MEDS: Polyethylene Glycol 3350 17 GM PACKET PO (10:17)
[2023-07-21] MEDS: Pantoprazole Sodium 40 MG Tablet PO (10:18)
[2023-07-21] MEDS: Sertraline 100 MG Tablet PO (10:18)
[2023-07-21] MEDS: Cholecalciferol (VIT D3) 25 MCG TABLET (1,000 UNITS) PO (10:19)
[2023-07-21] MEDS: Senna/Docusate Sodium 1 Tablet 2 TABLET PO (10:19)
[2023-07-21 10:57] LABS: Osmolality, Serum 269 mOsm/KG (280-301)
[2023-07-21] MEDS: ALPRAZolam 0.5 MG Tablet PO (11:44)
[2023-07-21 14:26] VITALS: BP 130/75; PULSE 81; RESP 18; TEMP 35.8; O2SAT 98
[2023-07-21 23:00] VITALS: BP 158/91; PULSE 86
[2023-07-21] MEDS: Naproxen 250 MG Tablet 500 MG PO (23:39)
[2023-07-21] MEDS: 0.9% Saline Lock 10 ML Syringe IV (23:39)
[2023-07-21] MEDS: Loratadine 10 MG Tablet PO (23:40)
[2023-07-21] MEDS: lamoTRIgine 100 MG Tablet 200 MG PO (23:40)
[2023-07-21] MEDS: QUEtiapine 100 MG Tablet 200 MG PO (23:40)
[2023-07-21] MEDS: Losartan Potassium 100 MG Tablet PO (23:42)
[2023-07-21] MEDS: Atorvastatin Calcium 40 MG Tablet PO (23:45)
[2023-07-21] MEDS: Baclofen 10 MG Tablet PO (23:45)
[2023-07-22 00:32] LABS: Osmolality, Urine 235 mOsm/KG
[2023-07-22 00:35] LABS: Urine Sodium 19 mmol/L (Not Establ.)
[2023-07-22] MEDS: Potassium Chloride Oral Tablet 20 MEQ PO (08:26)
[2023-07-22 09:32] LABS: Anion Gap 8 (5-15); BUN 10 mg/dL (7-18); BUN/Creat Ratio 8.6 RATIO (10-20); Calcium,Total 9.8 mg/dL (8.5-10.1); Chloride 94 mmol/L (98-107); Creatinine, Serum 1.16 mg/dL (0.55-1.02); EST Glomerular Filtration Rate 50 mL/min (>60); Est Glom Filt Rate - Afr Amer 61 mL/min (>60); Estimated Creatinine Clearance 52.55 ml/min; Glucose 104 mg/dL (74-106); Potassium 3.8 mmol/L (3.5-5.1); Sodium Level 129 mmol/L (136-145)
[2023-07-22] MEDS: Cholecalciferol (VIT D3) 25 MCG TABLET (1,000 UNITS) PO (09:46)
[2023-07-22] MEDS: Sertraline 100 MG Tablet PO (09:46)
[2023-07-22] MEDS: Pantoprazole Sodium 40 MG Tablet PO (09:46)
[2023-07-22] MEDS: amLODIPine 10 MG Tablet PO (09:47)
[2023-07-22] MEDS: ALPRAZolam 0.5 MG Tablet PO (09:47)
[2023-07-22 15:00] VITALS: BP 126/60; PULSE 78; RESP 17; TEMP 36.8; O2SAT 97
[2023-07-22 16:00] VITALS: BP 126/60; PULSE 78; RESP 17; TEMP 36.8; O2SAT 97
--- NOTE | 2023-07-22 16:37 | CASEMGMT ---
Addendum entered by Deidra Holliday 07/23/23 18:02: PASRR completed. Addendum entered by Deidra Holliday 07/23/23 17:53: SW spoke with pt to update on SNF choices. Pt prefers [facility]. SW to secure. Pt to see if CM can transport pt at [place]. SW [facility] and [facility] Plan: [facility]26 [facility] Addendum entered by Deidra Holliday 07/23/23 15:16: [facility] not have beds. [facility] can accept. [facility] is reviewing. Original Note: Social Work SW completed advanced directives with patient. Original and copy provided to pt. Copies placed on chart. Pt also provided choices for SNFs for this worker to place referrals: [facility] [place]. SW to place referrals. Will continue to follow. ARIANA FernandoW
[2023-07-22 20:40] VITALS: BP 147/77; PULSE 70
[2023-07-22] MEDS: 0.9% Saline Lock 10 ML Syringe IV (20:45)
[2023-07-22] MEDS: Baclofen 10 MG Tablet PO (20:46)
[2023-07-22] MEDS: QUEtiapine 100 MG Tablet 200 MG PO (20:46)
[2023-07-22] MEDS: Loratadine 10 MG Tablet PO (20:46)
[2023-07-22] MEDS: lamoTRIgine 100 MG Tablet 200 MG PO (20:46)
[2023-07-22] MEDS: Losartan Potassium 100 MG Tablet PO (20:46)
[2023-07-22] MEDS: Atorvastatin Calcium 40 MG Tablet PO (20:47)
[2023-07-22 20:57] VITALS: PULSE 72; RESP 16; O2SAT 100
[2023-07-22 21:50] VITALS: BP 91/57; PULSE 95
--- NOTE | 2023-07-22 21:50 | NURSING ---
Pt c/o being lightheaded while walking from recliner to bed. Pt sat on bed w/ staff assistance. BP taken 91/57. Apical strong and regular. LCTA. Pt stated that she has not drank many fluids on this day. Water and rest encouraged. Will monitor and recheck BP.
[2023-07-22 22:20] VITALS: BP 126/60
--- NOTE | 2023-07-22 22:30 | NURSING ---
Pt drank 500cc of water as well as walked to the BR. BP rechecked @ 126/60. Pt states that she is feeling normal again.
[2023-07-23 06:12] LABS: Anion Gap 8 (5-15); BUN 9 mg/dL (7-18); BUN/Creat Ratio 9.1 RATIO (10-20); Calcium,Total 8.8 mg/dL (8.5-10.1); Chloride 96 mmol/L (98-107); Creatinine, Serum 0.99 mg/dL (0.55-1.02); EST Glomerular Filtration Rate 61 mL/min (>60); Est Glom Filt Rate - Afr Amer 73 mL/min (>60); Estimated Creatinine Clearance 61.57 ml/min; Glucose 85 mg/dL (74-106); Potassium 3.3 mmol/L (3.5-5.1); Sodium Level 131 mmol/L (136-145)
[2023-07-23] MEDS: Sertraline 100 MG Tablet PO (07:56)
[2023-07-23] MEDS: Pantoprazole Sodium 40 MG Tablet PO (07:56)
[2023-07-23] MEDS: Senna/Docusate Sodium 1 Tablet 2 TABLET PO ×2 (07:56→22:42)
[2023-07-23] MEDS: Polyethylene Glycol 3350 17 GM PACKET PO (07:56)
[2023-07-23] MEDS: Naproxen 250 MG Tablet 500 MG PO ×2 (07:56→22:41)
[2023-07-23] MEDS: Cholecalciferol (VIT D3) 25 MCG TABLET (1,000 UNITS) PO (07:56)
[2023-07-23] MEDS: Potassium Chloride Oral Tablet 20 MEQ PO ×2 (07:57→16:24)
[2023-07-23] MEDS: amLODIPine 10 MG Tablet PO (07:57)
[2023-07-23 07:58] VITALS: BP 142/82; PULSE 81; RESP 18; O2SAT 93
[2023-07-23 10:00] VITALS: RESP 18
[2023-07-23] MEDS: 0.9% Saline Lock 10 ML Syringe IV (16:24)
--- NOTE | 2023-07-23 18:15 | CASEMGMT ---
Social Work BIMS () and PHQ-2 () completed for MDS assessment. Deidra Holliday MSW EQUIPMENT WORKER
--- NOTE | 2023-07-23 19:34 | PCM.DC.SUM ---
Providers Date of Admission: 07/06/23 Primary Care Physician: Dr. Tristan Mane MD Reason For Visit: CERVICAL FUSION Diagnosis Discharge Diagnosis (1) Debility: Status: Acute Code(s): R53.81 - Other malaise (2) Cervical myelopathy: Status: Acute Code(s): G95.9 - Disease of spinal cord, unspecified (3) S/P cervical spinal fusion: Status: Acute Code(s): Z98.1 - Arthrodesis status (4) Cardiopulmonary arrest: Status: Resolved Code(s): I46.9 - Cardiac arrest, cause unspecified (5) Acute hypercapnic respiratory failure: Status: Resolved Code(s): J96.02 - Acute respiratory failure with hypercapnia (6) Bipolar disorder: Status: Acute Code(s): F31.9 - Bipolar disorder, unspecified (7) High blood pressure: Status: Chronic Code(s): I10 - Essential (primary) hypertension (8) Hyperlipidemia: Status: Acute Code(s): E78.5 - Hyperlipidemia, unspecified (9) GERD (gastroesophageal reflux disease): Status: Acute Code(s): K21.9 - Gastro-esophageal reflux disease without esophagitis (10) MENG (obstructive sleep apnea): Status: Acute Code(s): G47.33 - Obstructive sleep apnea (adult) (pediatric) Plan 62 year old female with below past medical history hospitalized for C3-C5 discectomy/fusion 06/23/2023, postoperative course complicated by acute respiratory arrest secondary to angioedema from drug reaction, admitted to TCU with debility, here for rehabilitation, strengthening, prior to discharge home alone. Debility - PT/OT. Pain - Tylenol 1000mg q6 prn pain (1-3), Naproxen 500mg q8 prn pain (4-5), Oxycodoone 5mg q4 prn pain (6-10), Bowel - Miralax 17gm daily, senna/colace 2 tablets bid, Magnesium citrate 300ml daily prn. Adult immunization - Administer pneumonia vaccine, covid vaccine, flu vaccine as appropriate. DVT prophylaxis - Lovenox 40mg sc daily. 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 Hyperlipidemia - Atorvastatin 40mg qhs. Muscle spasm - Baclofen 10mg qhs. Vitamin D deficiency - D3 25mcg daily. Neuropathic pain - Gabapentin 300mg qhs. Hypertension - SBP 200 on arrival, Hydralazine 20mg iv x 1 dose, Hydralazine 10mg iv q6 prn SBP > 160, recheck blood pressure increase HCTZ 12.5mg qhs, Increase Losartan 100mg qhs. Bipolar disorder - Lamictal 200mg qhs, Seroquel 200mg qhs, stable chronic senior living use, GDR not recommended. Allergic rhinitis - Loratadine 10mg qhs. GERD - Pantoprazole 40mg daily. 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 Medications at Discharge Home Medications lamotrigine 200 mg tablet 200 mg PO QHS DEPRESSION 02/20/14 loratadine 10 mg tablet 10 mg PO QHS ALLERGY 02/20/14 quetiapine 200 mg tablet 200 mg PO QHS SLEEP 02/20/14 atorvastatin 40 mg tablet 40 mg PO QHS CHOLESTEROL 06/30/20 cholecalciferol (vitamin D3) 25 mcg (1,000 unit) tablet 1,000 unit PO DAILY SUPPLEMENT 06/30/20 sertraline 100 mg tablet 100 mg PO DAILY DEPRESSION 10/20/20 polyethylene glycol 3350 17 gram oral powder packet (Miralax) 17 g PO DAILY SUPPLEMENT 07/10/22 baclofen 10 mg tablet 10 mg PO QHS PAIN 06/18/23 pantoprazole 40 mg tablet,delayed release 40 mg PO DAILY GERD 06/18/23 alprazolam 0.5 mg tablet 0.5 mg PO Q4H PRN PRN Anxiety/Restlessness/Sleep 3 days #18 tabs 07/23/23 amlodipine 10 mg tablet 10 mg PO DAILY #0 tabs 07/23/23 hydralazine 10 mg tablet 10 mg PO Q6H PRN SBP >160 #0 tabs 07/23/23 losartan 100 mg tablet 100 mg PO QHS #0 tabs 07/23/23 naproxen 250 mg tablet 500 mg (2 x 250 mg) PO Q8H PRN Pain Score 4-5 #0 tabs 07/23/23 potassium chloride 10 mEq tablet,extended release(part/cryst) 20 meq (2 x 10 mEq) PO BIDCM #0 tabs 07/23/23 sennosides 8.6 mg-docusate sodium 50 mg tablet (Stool Softener-Stimulant Laxative) 2 tab PO BID #0 tabs 07/23/23 sertraline 100 mg tablet 100 mg PO DAILY #0 tabs 07/23/23 Hospital Course Operations - (See below.) Procedures None Summary of Care Provided Minutes Spent on Discharge: 35 Hospital Course: 62 year old female with below past medical history hospitalized for C3-C5 discectomy/fusion 06/23/2023, postoperative course complicated by acute respiratory arrest secondary to angioedema from drug reaction, admitted to TCU with debility, here for rehabilitation, strengthening, prior to discharge home alone. Discharge to [facility] 07/26/2023, Skilled. Physical Exam Const alert General Appearance: cooperative HEENT normocephalic Eyes PERRL and EOMs intact bilaterally Neck supple, no JVD and no carotid bruits Neck Narrative: Soft collar. Resp normal respiratory effort, normal air movement and clear to auscultation bilaterally Cardio regular rate and regular rhythm GI normal to inspection, nondistended, normoactive bowel sounds, non-tender and non-distended Extremity normal capillary refill General Extremity: Negative for edema Skin no rashes or lesions noted General Skin Exam: no breakdown Psych affect normal Appearance: appropriate Weight / BMI Weight Weight: 82.055 kg Body Mass Index (BMI) 26.6 ABG / Lab / Microbiology Data 07/21/23 08:17 07/23/23 05:33 Laboratory: Laboratory Results - last 24 hr 07/23/23 05:33: Sodium 131 L, Potassium 3.3 L, Chloride 96 L, Carbon Dioxide 27.0, Anion Gap 8, BUN 9, Creatinine 0.99, Estim Creat Clear Calc 61.57, Est GFR (MDRD) Af Amer 73, Est GFR (MDRD) Non-Af 61, BUN/Creatinine Ratio 9.1 L, Glucose 85, Calcium 8.8 Microbiology: Microbiology 07/22/23 01:15 Nasal Secretion SARS-CoV-2 Antigen (Rapid) - Final 07/18/23 03:20 Nasal Secretion SARS-CoV-2 Antigen (Rapid) - Final 07/15/23 05:10 Nasal Secretion SARS-CoV-2 Antigen (Rapid) - Final D/C Instructions Discharge Diet: No restrictions Discharge Activity: Return to Normal Activity, May Shower and Use Walker Weight Bearing Status: Weight bearing as tolerated Call your doctor if you observe: Fever of 101 or Higher, Inability to urinate, Inability to have a bowel movement, Shortness of breath, Dizziness, Fainting spells, Swelling in the ankles, Chest pain and Uncontrolled pain Additional Instructions: Discharge to [facility] 07/26/2023, Skilled. Please Follow Up With: Bebo Thornton MD When: As scheduled. Meaningful Use Info Meaningful Use Diagnoses (Choose all that apply): None applicable Discharge Plan Admission Admit Date/Time: 07/06/23 17:47 Primary Reason for Your Visit: Debility. Attending Provider: Tristan Mane Chi Primary Care Provider: Tristan Mane Chi Instructions Additional Instructions / Restrictions: Discharge to [facility] 07/26/2023, Skilled. Discharge Orders/Prescriptions Prescriptions: New hydralazine 10 mg Tablet 10 mg PO Q6H PRN (Reason: SBP >160) Qty: 0 0RF sennosides-docusate sodium [Stool Softener-Stimulant Laxat] 8.6-50 mg Tablet 2 tab PO BID Qty: 0 0RF sertraline 100 mg Tablet 100 mg PO DAILY Qty: 0 0RF naproxen 250 mg Tablet 500 mg PO Q8H PRN (Reason: Pain Score 4-5) Qty: 0 0RF alprazolam 0.5 mg Tablet 0.5 mg PO Q4H PRN PRN (Reason: Anxiety/Restlessness/Sleep) 3 Days Qty: 18 0RF amlodipine 10 mg Tablet 10 mg PO DAILY Qty: 0 0RF losartan 100 mg Tablet 100 mg PO QHS Qty: 0 0RF potassium chloride 10 mEq Tablet,Er Particles/Crystals 20 meq PO BIDCM Qty: 0 0RF Continued baclofen 10 mg tablet 10 mg PO QHS pantoprazole 40 mg tablet,delayed release (DR/EC) 40 mg PO DAILY lamotrigine 200 MG tablet 200 mg PO QHS quetiapine 200 MG tablet 200 mg PO QHS loratadine 10 MG tablet 10 mg PO QHS sertraline 100 mg tablet 100 mg PO DAILY atorvastatin 40 MG tablet 40 mg PO QHS cholecalciferol (vitamin D3) 1,000 UNIT tablet 1,000 unit PO DAILY polyethylene glycol 3350 [Miralax] 17 gram Powder In Packet 17 g PO DAILY Discontinued naproxen sodium [Flanax (naproxen)] 220 mg tablet 440 mg PO Q8H PRN (Reason: Pain) gabapentin 300 mg capsule 300 mg PO QHS losartan-hydrochlorothiazide 1 EACH tablet 0.5 tab PO QHS alprazolam 0.5 MG tablet 0.5 mg PO DAILY oxycodone 5 mg Tablet 5 mg PO Q6H PRN (Reason: pain) 7 Days Qty: 0 0RF Referrals / Follow Up: Bebo Thornton MD [Med Staff - Active Staff] - 08/15/23 1:00 pm Tristan Mane Chi, MD [Primary Care Provider] - Disposition Disposition (needs filled in before D/C Order can be placed): [facility]
--- NOTE | 2023-07-23 19:40 | TREXTCAR_ITS ---
Diet Diet Order/Speech Therapy: 07/06/23 18:08 Diet: Regular - General Food consistency:: Soft & Bite Sized Liquid Consistency:: Regular/Thin Dietary Modifications:: Gluten Free Type of Dietary Supplement:: black coffee w/ breakfast Is pt able to select menu?: Yes Diet Comments: NO CORN or CORN PRODUCTS, NO WHEAT. CAN HAVE DIET SODA, COFFEE, & 2% MILK Routine Orders/Code Status Code Status: Full Code Wound(s) Anterior neck- surgical incision: Wound Type: Surgical Incision Dressing Change: 4x4 drain sponge and opsite Therapies Weight Bearing: Weight bearing as tolerated Extremity Affected:: Bilateral Lower and Bilateral Upper Physical Therapy: Eval and Treat Occupational Therapy: Eval and Treat Problem/Diagnosis (1) Debility: Status: Acute Code(s): R53.81 - Other malaise (2) Cervical myelopathy: Status: Acute Code(s): G95.9 - Disease of spinal cord, unspecified (3) S/P cervical spinal fusion: Status: Acute Code(s): Z98.1 - Arthrodesis status (4) Cardiopulmonary arrest: Status: Resolved Code(s): I46.9 - Cardiac arrest, cause unspecified (5) Acute hypercapnic respiratory failure: Status: Resolved Code(s): J96.02 - Acute respiratory failure with hypercapnia (6) Bipolar disorder: Status: Acute Code(s): F31.9 - Bipolar disorder, unspecified Comment: ON MED (7) High blood pressure: Status: Chronic Code(s): I10 - Essential (primary) hypertension Comment: CONTROLLED ON MED (8) Hyperlipidemia: Status: Acute Code(s): E78.5 - Hyperlipidemia, unspecified (9) GERD (gastroesophageal reflux disease): Status: Acute Code(s): K21.9 - Gastro-esophageal reflux disease without esophagitis (10) MENG (obstructive sleep apnea): Status: Acute Code(s): G47.33 - Obstructive sleep apnea (adult) (pediatric) Plan 62 year old female with below past medical history hospitalized for C3-C5 discectomy/fusion 06/23/2023, postoperative course complicated by acute respiratory arrest secondary to angioedema from drug reaction, admitted to TCU with debility, here for rehabilitation, strengthening, prior to discharge home alone. * Debility - PT/OT. * Pain - Tylenol 1000mg q6 prn pain (1-3), Naproxen 500mg q8 prn pain (4-5), Oxycodoone 5mg q4 prn pain (6-10), * Bowel - Miralax 17gm daily, senna/colace 2 tablets bid, Magnesium citrate 300ml daily prn. * Adult immunization - Administer pneumonia vaccine, covid vaccine, flu vaccine as appropriate. * DVT prophylaxis - Lovenox 40mg sc daily. 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 * Hyperlipidemia - Atorvastatin 40mg qhs. * Muscle spasm - Baclofen 10mg qhs. * Vitamin D deficiency - D3 25mcg daily. * Neuropathic pain - Gabapentin 300mg qhs. * Hypertension - SBP 200 on arrival, Hydralazine 20mg iv x 1 dose, Hydralazine 10mg iv q6 prn SBP > 160, recheck blood pressure increase HCTZ 12.5mg qhs, Increase Losartan 100mg qhs. 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 * Allergic rhinitis - Loratadine 10mg qhs. * GERD - Pantoprazole 40mg daily. 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 Allergies/Procedures Done in Hospital Allergies chamomile flower Allergy (Verified 07/03/23 11:08) Upset Stomach HERBAL TEA-HEADACHES Sulfa (Sulfonamide Antibiotics) Allergy (Verified 07/03/23 11:08) Hives labetalol Adverse Reaction (Severe, Verified 07/06/23 12:38) Angioedema corn Adverse Reaction (Verified 07/03/23 11:08) Other wheat Adverse Reaction (Verified 07/03/23 11:08) Other Procedures: None Type of Care/Length of Stay Estimated LOS: Convalescent Care Less Than 30 days Type of Care Needed: Skilled Rehab Potential: Good Prognosis: Good Additional Orders/Day of Discharge Day of Discharge: 07/26/23 Dietary and Speech Recommendations Dietitian Recommendations/Changes: Continue diet as ordered Will continue to provide black coffee w/ breakfast per res request Follow Up Care Please Follow Up With: Bebo Thornton MD When: 2 weeks Discharge Plan Admission Admit Date/Time: 07/06/23 17:47 Primary Reason for Your Visit: Debility. Attending Provider: Tristan Mane Chi Primary Care Provider: Tristan Mane Chi Instructions Additional Instructions / Restrictions: [facility] to [facility] 07/[facility]/2023, Skilled. Discharge Orders/Prescriptions Prescriptions: New hydralazine 10 mg Tablet 10 mg PO Q6H PRN (Reason: SBP >160) Qty: 0 0RF sennosides-docusate sodium [Stool Softener-Stimulant Laxat] 8.6-50 mg Tablet 2 tab PO BID Qty: 0 0RF sertraline 100 mg Tablet 100 mg PO DAILY Qty: 0 0RF naproxen 250 mg Tablet 500 mg PO Q8H PRN (Reason: Pain Score 4-5) Qty: 0 0RF alprazolam 0.5 mg Tablet 0.5 mg PO Q4H PRN PRN (Reason: Anxiety/Restlessness/Sleep) 3 Days Qty: 18 0RF amlodipine 10 mg Tablet 10 mg PO DAILY Qty: 0 0RF losartan 100 mg Tablet 100 mg PO QHS Qty: 0 0RF potassium chloride 10 mEq Tablet,Er Particles/Crystals 20 meq PO BIDCM Qty: 0 0RF Continued baclofen 10 mg tablet 10 mg PO QHS pantoprazole 40 mg tablet,delayed release (DR/EC) 40 mg PO DAILY lamotrigine 200 MG tablet 200 mg PO QHS quetiapine 200 MG tablet 200 mg PO QHS loratadine 10 MG tablet 10 mg PO QHS sertraline 100 mg tablet 100 mg PO DAILY atorvastatin 40 MG tablet 40 mg PO QHS cholecalciferol (vitamin D3) 1,000 UNIT tablet 1,000 unit PO DAILY polyethylene glycol 3350 [Miralax] 17 gram Powder In Packet 17 g PO DAILY Discontinued naproxen sodium [Flanax (naproxen)] 220 mg tablet 440 mg PO Q8H PRN (Reason: Pain) gabapentin 300 mg capsule 300 mg PO QHS losartan-hydrochlorothiazide 1 EACH tablet 0.5 tab PO QHS alprazolam 0.5 MG tablet 0.5 mg PO DAILY oxycodone 5 mg Tablet 5 mg PO Q6H PRN (Reason: pain) 7 Days Qty: 0 0RF Referrals / Follow Up: Bebo Thornton MD [Med Staff - Active Staff] - 08/15/23 1:00 pm Tristan Mane Chi, MD [Primary Care Provider] - Disposition Disposition (needs filled in before D/C Order can be placed): Shelter Facility
[2023-07-23] MEDS: Atorvastatin Calcium 40 MG Tablet PO (22:42)
[2023-07-23] MEDS: Baclofen 10 MG Tablet PO (22:43)
[2023-07-23] MEDS: Losartan Potassium 100 MG Tablet PO (22:43)
[2023-07-23] MEDS: QUEtiapine 100 MG Tablet 200 MG PO (22:43)
[2023-07-23] MEDS: Loratadine 10 MG Tablet PO (22:43)
[2023-07-23] MEDS: lamoTRIgine 100 MG Tablet 200 MG PO (22:43)
[2023-07-23 22:48] VITALS: BP 134/78; PULSE 82; RESP 16
[2023-07-24 06:39] LABS: Anion Gap 6 (5-15); BUN 13 mg/dL (7-18); BUN/Creat Ratio 12.5 RATIO (10-20); Calcium,Total 9.3 mg/dL (8.5-10.1); Chloride 96 mmol/L (98-107); Creatinine, Serum 1.04 mg/dL (0.55-1.02); EST Glomerular Filtration Rate 57 mL/min (>60); Est Glom Filt Rate - Afr Amer 69 mL/min (>60); Estimated Creatinine Clearance 58.61 ml/min; Glucose 83 mg/dL (74-106); Potassium 3.9 mmol/L (3.5-5.1); Sodium Level 129 mmol/L (136-145)
[2023-07-24 08:40] VITALS: BP 120/58; PULSE 75
[2023-07-24] MEDS: Potassium Chloride Oral Tablet 10 MEQ 20 MEQ PO ×2 (08:42→17:13)
[2023-07-24] MEDS: Polyethylene Glycol 3350 17 GM PACKET PO (08:43)
[2023-07-24] MEDS: Senna/Docusate Sodium 1 Tablet 2 TABLET PO ×2 (08:45→22:36)
[2023-07-24] MEDS: amLODIPine 10 MG Tablet PO (08:45)
[2023-07-24] MEDS: Pantoprazole Sodium 40 MG Tablet PO (08:45)
[2023-07-24] MEDS: Sertraline 100 MG Tablet PO (08:46)
[2023-07-24] MEDS: Cholecalciferol (VIT D3) 25 MCG TABLET (1,000 UNITS) PO (08:46)
[2023-07-24] MEDS: ALPRAZolam 0.5 MG Tablet PO (08:50)
[2023-07-24] MEDS: Naproxen 250 MG Tablet 500 MG PO ×2 (08:50→22:35)
[2023-07-24 14:06] VITALS: BP 128/63; PULSE 82; RESP 16; TEMP 36.6; O2SAT 98
[2023-07-24 14:23] VITALS: BMI 27.1
[2023-07-24 19:49] VITALS: PULSE 87; RESP 16; O2SAT 100
[2023-07-24 22:00] VITALS: BP 179/70; PULSE 68
[2023-07-24] MEDS: Atorvastatin Calcium 40 MG Tablet PO (22:36)
[2023-07-24] MEDS: Loratadine 10 MG Tablet PO (22:36)
[2023-07-24] MEDS: Baclofen 10 MG Tablet PO (22:36)
[2023-07-24] MEDS: Losartan Potassium 100 MG Tablet PO (22:36)
[2023-07-24] MEDS: QUEtiapine 100 MG Tablet 200 MG PO (22:36)
[2023-07-24] MEDS: lamoTRIgine 100 MG Tablet 200 MG PO (22:36)
[2023-07-25 06:16] VITALS: RESP 16
[2023-07-25 06:29] LABS: Anion Gap 5 (5-15); BUN 13 mg/dL (7-18); BUN/Creat Ratio 14.7 RATIO (10-20); Calcium,Total 8.9 mg/dL (8.5-10.1); Chloride 98 mmol/L (98-107); Creatinine, Serum 0.88 mg/dL (0.55-1.02); EST Glomerular Filtration Rate 69 mL/min (>60); Est Glom Filt Rate - Afr Amer 83 mL/min (>60); Estimated Creatinine Clearance 69.27 ml/min; Glucose 80 mg/dL (74-106); Potassium 4.1 mmol/L (3.5-5.1); Sodium Level 129 mmol/L (136-145)
[2023-07-25] MEDS: Potassium Chloride Oral Tablet 10 MEQ 20 MEQ PO ×2 (08:57→16:13)
[2023-07-25] MEDS: Cholecalciferol (VIT D3) 25 MCG TABLET (1,000 UNITS) PO (08:58)
[2023-07-25] MEDS: Pantoprazole Sodium 40 MG Tablet PO (08:58)
[2023-07-25] MEDS: Sertraline 100 MG Tablet PO (08:58)
[2023-07-25] MEDS: amLODIPine 10 MG Tablet PO (09:01)
[2023-07-25 09:02] VITALS: BP 128/71; PULSE 74; RESP 18; TEMP 37.2; O2SAT 98
--- NOTE | 2023-07-25 13:17 | CASEMGMT ---
Social Work Received call from stating she cannot transport pt and requesting transport be scheduled. SW contacted [facility] and they do not have availability. YASH contacted [facility] and they can accept pt's NADIA to bill. [facility] can transport pt via w/c between 12-1230 on 07/26. YASH updated pt. Deidra Holliday, ARIANA ESTRADA
--- NOTE | 2023-07-25 13:51 | MDS.RN ---
MDS pain interview complete.
[2023-07-25 14:36] VITALS: BP 145/79; PULSE 81; RESP 18; TEMP 35.7; O2SAT 100
[2023-07-25] MEDS: ALPRAZolam 0.5 MG Tablet PO (15:05)
--- NOTE | 2023-07-25 16:39 | CHAPLAIN ---
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 ___ Other (describe below) Sacrament/Intervention _x__ Active listening ___ Anointing ___ Yarsanism ___ Bereavement ___ Communion ___ Nikia exploration ___ _x__ Life review _x__ Prayer ___ Reconciliation ___ Sacrament of Sick _x__ Supportive presence ___ Wedding ___ Other (describe below) Pastoral Comments patient requested a visit today due to her being transferred tomorrow to another SNF; pt admits to anxiety and that she remembered that she didn't have her meds earlier today; pt talks through what causes her to be anxious; review of what positive impact the new facility may hold for her; consideration of the temporary nature of the change, and prayer is offered; time given to listen and be present in the moment
[2023-07-25] MEDS: Losartan Potassium 100 MG Tablet PO (22:38)
[2023-07-25] MEDS: QUEtiapine 100 MG Tablet 200 MG PO (22:38)
[2023-07-25] MEDS: lamoTRIgine 100 MG Tablet 200 MG PO (22:38)
[2023-07-25] MEDS: Loratadine 10 MG Tablet PO (22:38)
[2023-07-25] MEDS: Atorvastatin Calcium 40 MG Tablet PO (22:38)
[2023-07-25] MEDS: Baclofen 10 MG Tablet PO (22:38)
[2023-07-25] MEDS: Naproxen 250 MG Tablet 500 MG PO (22:39)
[2023-07-26 05:55] VITALS: PULSE 90; RESP 16; O2SAT 99
[2023-07-26 07:29] LABS: Anion Gap 3 (5-15); BUN 12 mg/dL (7-18); BUN/Creat Ratio 13.5 RATIO (10-20); Calcium,Total 9.6 mg/dL (8.5-10.1); Chloride 102 mmol/L (98-107); Creatinine, Serum 0.89 mg/dL (0.55-1.02); EST Glomerular Filtration Rate 68 mL/min (>60); Est Glom Filt Rate - Afr Amer 83 mL/min (>60); Estimated Creatinine Clearance 68.49 ml/min; Glucose 80 mg/dL (74-106); Potassium 4.1 mmol/L (3.5-5.1); Sodium Level 132 mmol/L (136-145)
[2023-07-26 10:00] VITALS: BP 131/77; PULSE 72; RESP 18; TEMP 36.8; O2SAT 99
[2023-07-26] MEDS: amLODIPine 10 MG Tablet PO (10:14)
[2023-07-26] MEDS: Potassium Chloride Oral Tablet 10 MEQ 20 MEQ PO (10:14)
[2023-07-26] MEDS: Sertraline 100 MG Tablet PO (10:15)
[2023-07-26] MEDS: Cholecalciferol (VIT D3) 25 MCG TABLET (1,000 UNITS) PO (10:15)
[2023-07-26] MEDS: Pantoprazole Sodium 40 MG Tablet PO (10:15)
[2023-07-26] MEDS: ALPRAZolam 0.5 MG Tablet PO (10:16)
== END 2023-07-26 12:24 | disposition skilled nursing facility (03) | DRG 560 ==
PROVIDERS: Admitting Provider Family Medicine Geriatric Medicine; PCP Family Medicine Geriatric Medicine; Visit Provider Family Medicine Geriatric Medicine
DX: Z47.89 Encounter for other orthopedic aftercare (principal); M47.12 Other spondylosis with myelopathy, cervical region; G95.9 Disease of spinal cord, unspecified; Z86.74 Personal history of sudden cardiac arrest; F31.9 Bipolar disorder, unspecified; I10 Essential (primary) hypertension; G47.33 Obstructive sleep apnea (adult) (pediatric); J30.9 Allergic rhinitis, unspecified; E55.9 Vitamin D deficiency, unspecified; E78.00 Pure hypercholesterolemia, unspecified; G62.9 Polyneuropathy, unspecified; K21.9 Gastro-esophageal reflux disease without esophagitis; F41.9 Anxiety disorder, unspecified; Z98.1 Arthrodesis status; Z79.899 Other long term (current) drug therapy; T78.3XXD Angioneurotic edema, subsequent encounter; T50.905D Adverse effect of unspecified drugs, medicaments and biological substances, subsequent encounter; Z23 Encounter for immunization
CPT/HCPCS: 36415; 72040; 80048; 83930; 83935; 84300; 85025; 87811; 90480; 97110; 97116; 97162; 97166; 97530; 97535; 97802; J7030; 91322; A4216

== ENCOUNTER → 2023-12-24 | Outpatient (CLI) | payer MEDICARE, MEDICAID, SELFPAY ==
[2023-08-15 13:59] VITALS: BMI 24.3
[2023-12-24 15:27] LABS: Absolute Lymphocyte Count 0.81 X10^3/uL (0.83-4.51); Absolute Neutrophil Count 3.5 X10^3/uL (2.0-7.7); Basophil# 0.05 X10^3/uL; Eosinophil# 0.17 X10^3/uL; Eosinophils% 3.6 % (0-5); Hematocrit 34.1 % (37-47); Hemoglobin 11.6 g/dL (12.0-15.0); Lymphocyte # 0.81 X10^3/ul (0.83-4.51); Lymphocyte % 16.9 % (19-41); Mean Corpuscular Hgb 30.3 pg (27.0-32.0); Mean Platelet Vol. 8.8 fl (6.2-12.0); Monocyte# 0.26 X10^3/uL; Monocyte% 5.4 % (0-10); NRBC Flagged by Analyzer 0 % (0-5); Neutrophil # 3.46 X10^3/uL (2.7-7.7); Neutrophil % 72.5 % (47-70); Platelet Count 261 K/mm3 (150-450); RBC Distribution Width CV 13.1 % (11.6-14.6); RBC Distribution Width SD 42.4 fl (35.1-43.9); Red Blood Count 3.83 M/mm3 (4.2-5.4); White Blood Count 4.8 K/mm3 (4.4-11.0)
[2023-12-24 16:13] LABS: ALB/GLOB Ratio 1.4 RATIO (0.9-2.4); AST(SGOT) 23 U/L (15-37); Alanine Aminotransfer ALT/SGPT 32 U/L (13-56); Albumin, Serum 4.2 g/dL (3.2-5.0); Alkaline Phosphatase 87 U/L (45-117); Anion Gap 7 (5-15); BUN 13 mg/dL (7-18); BUN/Creat Ratio 17.3 RATIO (10-20); Calcium,Total 9.2 mg/dL (8.5-10.1); Chloride 102 mmol/L (98-107); Cholesterol 198 mg/dL (200); Creatinine, Serum 0.75 mg/dL (0.55-1.02); EST Glomerular Filtration Rate 83 mL/min (>60); Est Glom Filt Rate - Afr Amer 100 mL/min (>60); Globulin 2.9 g/dL (2.2-4.2); Glucose 91 mg/dL (74-106); High Density Lipoprotein 105 mg/dL; Protein, Total 7.1 g/dL (6.4-8.2); Sodium Level 133 mmol/L (136-145); Thyroid Stim Hormone (TSH) 2.36 uIU/mL (0.358-3.74); Triglycerides 60 mg/dL; Very Low Density Lipoprotein 12 mg/dL (5-40)
== END | disposition home or self-care (01) ==
PROVIDERS: PCP Family Medicine Geriatric Medicine; Referring Provider Family Medicine Geriatric Medicine; Visit Provider Family Medicine Geriatric Medicine
DX: I10 Essential (primary) hypertension (principal); E78.5 Hyperlipidemia, unspecified
CPT/HCPCS: 36415; 80053; 80061; 84443; 85025

== ENCOUNTER 2024-01-14 16:14 | Outpatient (CLI) | payer MEDICARE, MEDICAID, SELFPAY ==
[2023-08-15 13:59] VITALS: BMI 24.3
[2024-01-14 16:25] LABS: Bacteria 0 SEEN /hpf (None Seen); Mucous, Urine 0 SEEN /hpf (<or=2+); Red Blood Cells-Urine 0 SEEN /hpf (0-5); Squamous Epithelial Cells - UA 0 SEEN /hpf (5-10); White Blood Cells 0 SEEN /hpf (0-5)
[2024-01-14 17:45] LABS: Color, Urine Yellow (Yellow); Glucose, Dipstick Normal (Normal); Ketone-Dipstick Negative (Negative); Leukocyte Esterase-Dipstick Negative /ul (Negative); Nitrite-Dipstick Negative (Negative); Occult Blood-Urine Negative /ul (Negative); Protein-Dipstick Negative (Negative); Specific Gravity, Urine 1.015 (1.002-1.030); Urine Bilirubin Dipstick Negative (Negative); Urine Clarity Clear (Clear); Urine Urobilinogen Normal (Normal)
[2024-01-14 17:54] LABS: Absolute Lymphocyte Count 0.72 X10^3/uL (0.83-4.51); Absolute Neutrophil Count 3.5 X10^3/uL (2.0-7.7); Basophil# 0.04 X10^3/uL; Basophil% 0.8 % (0-1); Eosinophil# 0.23 X10^3/uL; Eosinophils% 4.8 % (0-5); Hematocrit 35.4 % (37-47); Hemoglobin 11.8 g/dL (12.0-15.0); Lymphocyte # 0.72 X10^3/ul (0.83-4.51); Lymphocyte % 15.1 % (19-41); Mean Corp Hgb Conc 33.3 g/dL (32-36); Mean Corpuscular Hgb 29.8 pg (27.0-32.0); Mean Corpuscular Volume 89.4 fL (81-99); Mean Platelet Vol. 10.9 fl (6.2-12.0); Monocyte# 0.29 X10^3/uL; Monocyte% 6.1 % (0-10); NRBC Flagged by Analyzer 0 % (0-5); Neutrophil # 3.46 X10^3/uL (2.7-7.7); Neutrophil % 72.8 % (47-70); Platelet Count 205 K/mm3 (150-450); RBC Distribution Width CV 13.2 % (11.6-14.6); RBC Distribution Width SD 43.4 fl (35.1-43.9); Red Blood Count 3.96 M/mm3 (4.2-5.4); White Blood Count 4.8 K/mm3 (4.4-11.0)
[2024-01-14 18:29] LABS: BNP,B-Type NATRIURETIC PEPTIDE 3.7 pg/mL (0-100)
[2024-01-14 18:44] LABS: ALB/GLOB Ratio 1.4 RATIO (0.9-2.4); AST(SGOT) 19 U/L (15-37); Alanine Aminotransfer ALT/SGPT 27 U/L (13-56); Albumin, Serum 4.2 g/dL (3.2-5.0); Alkaline Phosphatase 79 U/L (45-117); Anion Gap 9 (5-15); BUN 12 mg/dL (7-18); BUN/Creat Ratio 14.6 RATIO (10-20); Calcium,Total 9.5 mg/dL (8.5-10.1); Chloride 108 mmol/L (98-107); Creatinine, Serum 0.82 mg/dL (0.55-1.02); EST Glomerular Filtration Rate 75 mL/min (>60); Est Glom Filt Rate - Afr Amer 90 mL/min (>60); Globulin 3.1 g/dL (2.2-4.2); Glucose 78 mg/dL (74-106); Protein, Total 7.3 g/dL (6.4-8.2); Sodium Level 136 mmol/L (136-145); Thyroid Stim Hormone (TSH) 1.38 uIU/mL (0.358-3.74)
[2024-01-14 20:16] LABS: D-Dimer Quantitative (DVT/PE) 0.52 FEU/ug/m (0.27-0.49)
== END 2024-01-14 23:59 | disposition home or self-care (01) ==
LOC: LAB 16:15
PROVIDERS: PCP Family Medicine Geriatric Medicine; Referring Provider Family Medicine Geriatric Medicine; Visit Provider Family Medicine Geriatric Medicine
DX: E78.5 Hyperlipidemia, unspecified (principal); N39.0 Urinary tract infection, site not specified; R53.83 Other fatigue; R06.02 Shortness of breath
CPT/HCPCS: 36415; 80053; 81001; 83880; 84443; 85025; 85379; 87086; 87088

== ENCOUNTER → 2024-01-28 | Outpatient (CLI) | payer MEDICARE, MEDICAID, SELFPAY ==
[2023-08-15 13:59] VITALS: BMI 24.3
== END | disposition home or self-care (01) ==
PROVIDERS: PCP Family Medicine Geriatric Medicine; Referring Provider Family Medicine Geriatric Medicine; Visit Provider Family Medicine Geriatric Medicine
DX: R06.02 Shortness of breath (principal)
CPT/HCPCS: 94060

== ENCOUNTER → 2024-02-03 | Outpatient (CLI) | payer MEDICARE, MEDICAID, SELFPAY ==
[2023-08-15 13:59] VITALS: BMI 24.3
--- NOTE | 2024-02-03 12:16 | ECHOD_ITS ---
Reason For Study: SHORTNESS OF BREATH Procedure This was a 2D Doppler, Color Flow transthoracic echocardiogram. Exam performed in department. Left Ventricle Normal left ventricle. Left ventricular systolic function is normal. The left ventricular ejection fraction is 60 %. No regional wall motion abnormalities noted. Right Ventricle Normal RV size. Normal systolic function. Atria Normal left atrium. Normal right atrium. Mitral Valve Normal mitral valve. Tricuspid Valve Normal tricuspid valve. Aortic Valve Trisinus/trileaflet aortic valve. Pulmonic Valve Normal pulmonic valve. Great Vessels Normal aortic root. The pulmonary artery is normal size. Normal inferior vena cava. Pericardium/Pleural No pericardial effusion. MMode/2D Measurements & Calculations LVIDd: 4.4 cm IVSd: 0.98 cm LVOT diam: 1.9 cm LVIDs: 2.1 cm LVPWd: 0.97 cm LVOT area: 2.7 cm2 RVDd: 3.6 cm FS: 52.9 % Ao root diam: 2.9 cm LAV(MOD-bp): 44.3 ml LVAd ap4: 25.8 cm2 LAV(MOD-bp) Indexed: 21.9 ml/m2 LVLd ap4: 7.6 cm LAV(MOD-sp2): 42.9 ml EDV(MOD-sp4): 71.3 ml LAV(MOD-sp4): 41.4 ml EDV(sp4-el): 74.2 ml LVAs ap4: 13.3 cm2 LVLs ap4: 6.6 cm ESV(MOD-sp4): 23.2 ml ESV(sp4-el): 22.9 ml EF(MOD-sp4): 67.4 % EF(sp4-el): 69.1 % LVAd ap2: 22.4 cm2 SV(MOD-sp4): 48.1 ml SV(MOD-sp2): 32.8 ml LVLd ap2: 7.8 cm EDV(MOD-sp2): 52.8 ml EDV(sp2-el): 54.6 ml LVAs ap2: 12.3 cm2 LVLs ap2: 6.7 cm ESV(MOD-sp2): 20.0 ml ESV(sp2-el): 19.2 ml EF(MOD-sp2): 62.2 % SV(sp4-el): 51.3 ml LA dimension(2D): 3.5 cm LA A4 area: 16.7 cm2 RA A4 area: 14.1 cm2 TAPSE: 2.0 cm Time Measurements MV dec time: 0.26 sec Doppler Measurements & Calculations MV E max luan: 82.2 cm/sec Lat Peak E' Luan: 9.4 cm/sec Med Peak E' Luan: 8.1 cm/sec MV A max luan: 77.6 cm/sec E/E' lat: 8.8 E/E' med: 10.2 MV E/A: 1.1 Ao V2 max: 135.7 cm/sec LV V1 max: 101.4 cm/sec MV dec slope: 322.1 cm/sec2 Ao max P.4 mmHg LV V1 max P.1 mmHg Ao V2 mean: 94.7 cm/sec LV V1 mean P.5 mmHg Ao mean P.1 mmHg LV V1 mean: 74.6 cm/sec Ao V2 VTI: 30.3 cm LV V1 VTI: 21.7 cm AV (velocity ratio): 0.72 GABE(I,D): 1.9 cm2 GABE(V,D): 2.0 cm2 SV(LVOT): 58.8 ml PA V2 max: 74.7 cm/sec PA max PG (full): 1.1 mmHg ECHO/Echo Complete Interpretation Summary Normal left ventricle. Left ventricular systolic function is normal. No regional wall motion abnormalities noted. The left ventricular ejection fraction is 60 %. Ordering Physician: Tristan Mane Chi Referring Physician: Tristan Mane Chi Performed By: Juana Sky RDCS
== END | disposition home or self-care (01) ==
PROVIDERS: PCP Family Medicine Geriatric Medicine; Referring Provider Family Medicine Geriatric Medicine; Visit Provider Family Medicine Geriatric Medicine
DX: R06.02 Shortness of breath (principal)
CPT/HCPCS: 93306

== ENCOUNTER 2024-05-02 16:17 | Emergency (ER) | payer MEDICARE, MEDICAID, SELFPAY ==
[2023-08-15 13:59] VITALS: BMI 24.3
[2024-05-02 16:19] VITALS: BP 144/85; PULSE 76; RESP 18; TEMP 36.1; O2SAT 98; BMI 28.8
--- NOTE | 2024-05-02 16:30 | RAD_ITS ---
EXAM: XR LEFT SHOULDER COMPLETE, 2 OR MORE VIEWS CLINICAL INDICATION: shoulder pain TECHNIQUE: Two or more views of the left shoulder. COMPARISON: No relevant prior studies available. FINDINGS: BONES/JOINTS: There is narrowing of the glenohumeral joint space. There is an inferior osteophyte off the humeral head. No acute fracture. No subluxation. Normal alignment. No sclerotic or destructive changes observed. SOFT TISSUES: Unremarkable. No soft tissue swelling or gas. No radiopaque foreign body. RAD/Shoulder min 2 Views IMPRESSION: No acute osseous abnormalities. There are degenerative changes in the shoulder with joint space narrowing and osteophyte formation. Electronically Signed: Benjamin Hogue MD at 17:55 EDT ,
--- NOTE | 2024-05-02 16:30 | CT_ITS ---
EXAM: CT CERVICAL SPINE WITHOUT INTRAVENOUS CONTRAST CLINICAL INDICATION: NECK PAIN TECHNIQUE: Helically acquired images were obtained of the cervical spine without intravenous contrast. 2D reformatted images were reviewed. This CT exam was performed using one or more of the following dose reduction techniques: automated exposure control, adjustment of the mA and/or kV according to patient size, and/or use of iterative reconstruction technique. COMPARISON: No relevant prior studies available. FINDINGS: VERTEBRAE: Unremarkable. No fracture. No traumatic subluxation. No discrete lytic or blastic abnormality. Normal alignment. Normal craniocervical junction and cervicothoracic junction. DISCS/SPINAL CANAL/NEURAL FORAMINA: There is hardware from an anterior fusion extending from C3 through C4 5. No critical stenosis. SOFT TISSUES: Unremarkable. No prevertebral soft tissue swelling. LYMPH NODES: Unremarkable. No cervical adenopathy. LUNG APICES: Unremarkable as visualized. Clear. OTHER FINDINGS: There is mild reversal the normal cervical doses. CT/Spine Cervical without Contras IMPRESSION: 1. No acute osseous abnormalities of the cervical spine. Orthopedic hardware is in good position from anterior fusion. 2. Reversal of normal cervical lordosis which may be due to a muscular strain. Electronically Signed: Benjamin Hogue MD at 18:00 EDT ,
--- NOTE | 2024-05-02 16:39 | EDS_ITS ---
HPI <NICKIE Avila - Last Filed: 05/02/24 18:19> History of Present Illness Chief Complaint: Fall Narrative Narrative: Patient is a 63-year-old female with history of bipolar, hyperlipidemia, hypertension, GERD who presents to the emergency department after mechanical fall out of a chair. Patient states that she was sitting in a chair when she turned and it was a flipped a chair and she fell to her left side. Patient is most complaining of left-sided neck pain however this is chronic she did have surgical fusion in July of last year. Patient also complained of left shoulder pain, left rib pain. Patient [place] any head or neck injury. Patient is currently on any blood thinners. PFS <NICKIE Avila - Last Filed: 05/02/24 18:19> [facility] Medical History Primary osteoarthritis, left shoulder Left shoulder pain Wears glasses Bipolar disorder Anxiety Alcohol use Non-smoker BiPAP (biphasic positive airway pressure) dependence Carpal tunnel syndrome, bilateral Panic disorder Psychiatric care CPAP/BiPAP (continuous or biphasic positive airway pressure) dependent Bipolar disorder Vision problems High cholesterol High blood pressure History of emotional problems Bone fracture Seasonal allergies Home Medications ?Medication ?Instructions ?Recorded ?Last Taken ?Type lamotrigine 200 mg tablet 200 mg PO QHS DEPRESSION 02/20/14 Unknown History loratadine 10 mg tablet 10 mg PO QHS ALLERGY 02/20/14 Unknown History quetiapine 200 mg tablet 200 mg PO QHS SLEEP 02/20/14 Unknown History atorvastatin 40 mg tablet 40 mg PO QHS CHOLESTEROL 06/30/20 Unknown History cholecalciferol (vitamin D3) 25 1,000 unit PO DAILY SUPPLEMENT 06/30/20 Unknown History mcg (1,000 unit) tablet sertraline 100 mg tablet 100 mg PO DAILY DEPRESSION 10/20/20 07/03/23 History polyethylene glycol 3350 17 gram 17 g PO DAILY SUPPLEMENT 07/10/22 Unknown History oral powder packet (Miralax) baclofen 10 mg tablet 10 mg PO QHS PAIN 06/18/23 Unknown History pantoprazole 40 mg tablet,delayed 40 mg PO DAILY GERD 06/18/23 07/03/23 History release alprazolam 0.5 mg tablet 0.5 mg PO Q4H PRN PRN 07/23/23 Unknown Rx Anxiety/Restlessness/Sleep 3 days #18 tabs amlodipine 10 mg tablet 10 mg PO DAILY #0 tabs 07/23/23 Unknown Rx losartan 100 mg tablet 100 mg PO QHS #0 tabs 07/23/23 Unknown Rx naproxen 250 mg tablet 500 mg (2 x 250 mg) PO Q8H PRN 07/23/23 Unknown Rx Pain Score 4-5 #0 tabs potassium chloride 10 mEq 20 meq (2 x 10 mEq) PO BIDCM #0 07/23/23 Unknown Rx tablet,extended release(part/cryst) tabs sennosides 8.6 mg-docusate sodium 2 tab PO BID #0 tabs 07/23/23 Unknown Rx 50 mg tablet (Stool Softener-Stimulant Laxative) Allergy/AdvReac Type Severity Reaction Status Date / Time chamomile flower Allergy Upset Verified 05/02/24 16:19 Stomach Sulfa (Sulfonamide Allergy Hives Verified 05/02/24 16:19 Antibiotics) labetalol AdvReac Severe Angioedema Verified 05/02/24 16:19 corn AdvReac Other Verified 05/02/24 16:19 wheat AdvReac Other Verified 05/02/24 16:19 Family History Mother Hypertension Father Hypertension Pancreatic cancer Shingles Surgical History History of cervical discectomy History of carpal tunnel surgery of right wrist History of carpal tunnel surgery of left wrist History of colonoscopy History of hysterectomy Social History household members: none Smoking Status: Never smoker alcohol intake: current alcohol intake frequency: a few times a week Alcohol type: wine substance use type: does not use ROS <NICKIE Avila - Last Filed: 05/02/24 18:19> ROS ED ROS Narrative Constitutional: Negative for fever, chills, weight loss, weakness Eyes: Negative for vision loss, vision change, double vision ENT: Negative for any sore throat, ear pain, congestion Cardiovascular: Negative for any chest pain, tightness, palpitations Respiratory: Negative for any cough, sputum production, hemoptysis, dyspnea, dyspnea on exertion, orthopnea Gastrointestinal: Negative for any abdominal pain, nausea, vomiting, diarrhea, constipation, blood in stool, blood in vomit : Negative for any urinary frequency, dysuria, retention, blood in urine Muscle skeletal: Negative for any back pain. Positive for left shoulder pain, left rib pain Neurological: Negative for any headache, syncope, dizziness Skin: Negative for any rashes, itching, abrasions, lacerations Psychiatric: Negative for any depression, anxiety, stress, suicidal ideation, homicidal ideation Hematologic: Negative for any excessive bruising, easy bleeding EXAM <NICKIE Avila - Last Filed: 05/02/24 18:19> Physical Exam Narrative Exam Narrative: Vital signs reviewed. HEET: Head normocephalic atraumatic, TMs clear bilaterally. Posterior pharynx is clear, moist mucous membranes. Nares clear bilaterally. Pupils are equal round reactive light Neck: Supple with no lymphadenopathy. No signs of meningismus. Positive for tenderness to the lower cervical spine, worsening with extension no radiation. Cardiac: Regular rate and rhythm no murmurs gallops or rubs, equal peripheral pulses bilaterally. Respiratory: Lungs clear to auscultation bilaterally. Positive for left-sided chest wall tenderness, no crepitus heard. Abdomen: Soft, nontender, nondistended. No abdominal bruit or pulsatile masses. No hepatosplenomegaly Extremities: No peripheral edema, no signs of gross trauma or deformity. Active full range of motion of all extremities. Pain is mostly to the lateral left shoulder. Patient is able to flex and extend without any difficulty. 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 Neuro: Cranial nerves II through XII intact, no focal neurological deficits. Skin: Clean dry and intact with no rash, purpura, petechiae, vesicles or pustules. Backs/flank: No CVA tenderness, no midline spinal tenderness, no deformity. Psych: Normal mood and affect. No SI, HI or acute psychosis. Const Vital Signs: 05/02/24 16:19 05/02/24 16:32 Temperature 97 F L Temperature Source Temporal Pulse Rate 76 Respiratory Rate 18 Respiratory Effort Normal Respiratory Depth Normal Respiratory Pattern Normal Blood Pressure 144/85 H Blood Pressure Mean 104 Pulse Ox 98 Oxygen Delivery Method Room Air Room Air <Dr. Todd Driver DO - Last Filed: 05/02/24 17:42> Physical Exam Const Vital Signs: 05/02/24 16:19 05/02/24 16:32 Temperature 97 F L Temperature Source Temporal Pulse Rate 76 Respiratory Rate 18 Respiratory Effort Normal Respiratory Depth Normal Respiratory Pattern Normal Blood Pressure 144/85 H Blood Pressure Mean 104 Pulse Ox 98 Oxygen Delivery Method Room Air Room Air [facility] <Philippe Dela CruzNICKIE - Last Filed: 05/02/24 18:19> [facility] Radiography Diagnostic Testing: Clinical Impression(s) from Imaging Studies Cervical Spine CT 05/02/24 16:30 IMPRESSION: 1. No acute osseous abnormalities of the cervical spine. Orthopedic hardware is in good position from anterior fusion. 2. Reversal of normal cervical lordosis which may be due to a muscular strain. Electronically Signed: Benjamin Hogue MD at 18:00 EDT , Shoulder X-Ray 05/02/24 16:30 IMPRESSION: No acute osseous abnormalities. There are degenerative changes in the shoulder with joint space narrowing and osteophyte formation. Electronically Signed: Benjamin Hogue MD at 17:55 EDT , Ribs w/Chest X-Ray 05/02/24 16:55 IMPRESSION: Negative chest and left ribs series. Electronically Signed: Benjamin Hogue MD at 17:54 EDT , Treatment and Re-Evaluation :: Differential diagnosis includes however is not limited to: Cervical strain, cervical fracture, rib fracture, rib contusion, left shoulder fracture, left shoulder contusion Patient appears to be in no obvious distress vital signs are stable, nontoxic- appearing. Presenting to the emergency department with complaints of a mechanical fall injuring her left shoulder, left ribs, also straining her left neck. Secondary to recent surgery a few months ago, patient will receive a CT scan the neck, patient will also receive x-rays of the left shoulder, left ribs. Patient was given oral Tylenol. All radiologic examinations were read, reviewed by the emergency department attending. From these reads, a plan of care will be put in place. Patient reevaluation was ambulatory, feeling well. Patient CT scan shows no acute osseous abnormalities of the cervical spine. Patient's rib x-ray shows no acute rib fracture. No pneumothorax. Patient's shoulder x-ray shows no acute osseous abnormalities. At this time, patient be diagnosed with cervical strain, contusions. Instructed return for any worsening symptoms. All questions are good to be answered, she is instructed to return for any worsening symptoms. ED attending note: I evaluated the patient in conjunction with the [facility]. I agree with his/her statements and above findings. I have personally performed a face to face assessment of the patient and have reviewed the [facility] Note. I performed a substantive portion of the visit including all aspects of the following. I personally saw the patient performed chart review, physical exam, reviewed labs, imaging (if obtained), and formulated a treatment and management plan. This note was generated with [employer] dictation software. It may contain incorrect words, spelling, and punctuation that were not noted in review of the chart prior to signing. <Dr. Todd Driver, DO - Last Filed: 05/02/24 17:42> [facility] Radiography Diagnostic Testing: Clinical Impression(s) from Imaging Studies Cervical Spine CT 05/02/24 16:30 IMPRESSION: 1. No acute osseous abnormalities of the cervical spine. Orthopedic hardware is in good position from anterior fusion. 2. Reversal of normal cervical lordosis which may be due to a muscular strain. Electronically Signed: Benjamin Hogue MD at 18:00 EDT , Shoulder X-Ray 05/02/24 16:30 IMPRESSION: No acute osseous abnormalities. There are degenerative changes in the shoulder with joint space narrowing and osteophyte formation. Electronically Signed: Benjamin Hogue MD at 17:55 EDT , Ribs w/Chest X-Ray 05/02/24 16:55 IMPRESSION: Negative chest and left ribs series. Electronically Signed: Benjamin Hogue MD at 17:54 EDT , Treatment and Re-Evaluation :: Differential diagnosis includes however is not limited to: Cervical strain, cervical fracture, rib fracture, rib contusion, left shoulder fracture, left shoulder contusion Patient appears to be in no obvious distress vital signs are stable, nontoxic- appearing. Presenting to the emergency department with complaints of a mechanical fall injuring her left shoulder, left ribs, also straining her left neck. Secondary to recent surgery a few months ago, patient will receive a CT scan the neck, patient will also receive x-rays of the left shoulder, left ribs. Patient was given oral Tylenol. All radiologic examinations were read, reviewed by the emergency department attending. From these reads, a plan of care will be put in place. ED attending note: I evaluated the patient in conjunction with the [facility]. I agree with his/her statements and above findings. I have personally performed a face to face assessment of the patient and have reviewed the [facility] Note. I performed a substantive portion of the visit including all aspects of the following. I personally saw the patient performed chart review, physical exam, reviewed labs, imaging (if obtained), and formulated a treatment and management plan. This note was generated with [employer] dictation software. It may contain incorrect words, spelling, and punctuation that were not noted in review of the chart prior to signing. Discharge Plan Triage Chief Complaint: Fall ED Midlevel Provider: Philippe Dela Cruz ED Provider: Todd Driver Dx/Rx/DC Orders Clinical Impression: Fall, Contusion of left shoulder, Cervical strain, Contusion of rib Instructions: ED Contusion, Upper Extremity, ED Neck Sprain or Strain, ED Bruise, Rib Prescriptions: No Action baclofen 10 mg tablet 10 mg PO QHS pantoprazole 40 mg tablet,delayed release (DR/EC) 40 mg PO DAILY lamotrigine 200 MG tablet 200 mg PO QHS quetiapine 200 MG tablet 200 mg PO QHS loratadine 10 MG tablet 10 mg PO QHS sertraline 100 mg tablet 100 mg PO DAILY atorvastatin 40 MG tablet 40 mg PO QHS cholecalciferol (vitamin D3) 1,000 UNIT tablet 1,000 unit PO DAILY polyethylene glycol 3350 [Miralax] 17 gram Powder In Packet 17 g PO DAILY sennosides-docusate sodium [Stool Softener-Stimulant Laxat] 8.6-50 mg Tablet 2 tab PO BID Qty: 0 0RF naproxen 250 mg Tablet 500 mg PO Q8H PRN (Reason: Pain Score 4-5) Qty: 0 0RF alprazolam 0.5 mg Tablet 0.5 mg PO Q4H PRN PRN (Reason: Anxiety/Restlessness/Sleep) 3 Days Qty: 18 0RF amlodipine 10 mg Tablet 10 mg PO DAILY Qty: 0 0RF losartan 100 mg Tablet 100 mg PO QHS Qty: 0 0RF potassium chloride 10 mEq Tablet,Er Particles/Crystals 20 meq PO BIDCM Qty: 0 0RF Primary Care Provider: Tristan Mane Chi Referrals: Tristan Mane Chi, MD [Primary Care Provider] - Activity Restrictions/Additional Instructions: Perform gentle stretching, ice and heat. Print Language: Czech Disposition Disposition: Home, Self Care
--- NOTE | 2024-05-02 16:55 | RAD_ITS ---
EXAM: XR LEFT RIBS AND AP CHEST, 3 OR MORE VIEWS CLINICAL INDICATION: rib pain TECHNIQUE: Frontal and oblique views of the left ribs and frontal view of the chest. COMPARISON: No relevant prior studies available. FINDINGS: LUNGS AND PLEURAL SPACES: Unremarkable. No consolidation or edema. No pneumothorax. No effusion. HEART: Unremarkable. Cardiac silhouette not enlarged. MEDIASTINUM: Central airways and mediastinal contour are unremarkable. BONES/JOINTS: Unremarkable. No evidence of displaced rib fractures. RAD/Ribs Uni Min 3V w/PA Chest IMPRESSION: Negative chest and left ribs series. Electronically Signed: Benjamin Hogue MD at 17:54 EDT ,
== END 2024-05-02 18:24 | disposition home or self-care (01) ==
PROVIDERS: Emergency Provider Emergency Medicine; PCP Family Medicine Geriatric Medicine; Visit Provider Emergency Medicine
DX: S16.1XXA Strain of muscle, fascia and tendon at neck level, initial encounter (principal); F31.9 Bipolar disorder, unspecified; I10 Essential (primary) hypertension; S40.012A Contusion of left shoulder, initial encounter; E78.00 Pure hypercholesterolemia, unspecified; S20.219A Contusion of unspecified front wall of thorax, initial encounter; K21.9 Gastro-esophageal reflux disease without esophagitis; W07.XXXA Fall from chair, initial encounter
CPT/HCPCS: 71101; 72125; 73030; 99282

== ENCOUNTER → 2024-06-09 | Outpatient (CLI) | payer MEDICARE, MEDICAID, SELFPAY ==
[2023-08-15 13:59] VITALS: BMI 24.3
--- NOTE | 2024-06-09 16:25 | RAD_ITS ---
STUDY: X-RAY - LEFT SHOULDER REASON FOR EXAM: Female, 63 years old. LEFT SHOULDER PAIN TECHNIQUE: 4 view(s) of the shoulder. COMPARISON: 05/02/2024 FINDINGS: There is severe degenerative arthrosis of the glenohumeral articulation. There is degenerative arthrosis of the acromioclavicular joint without inferior osseous spur formation. Normal acromion. Normal humeral head and visualized proximal humerus. The soft tissue structures are unremarkable. Normal visualized pulmonary apex. RAD/Shoulder min 2 Views IMPRESSION: Severe glenohumeral joint arthrosis. Mild acromioclavicular joint arthrosis. Electronically Signed: Preet Vergara MD at 12:09 EDT ,
[2024-06-09 16:34] LABS: Absolute Lymphocyte Count 1.02 X10^3/uL (0.83-4.51); Basophil# 0.05 X10^3/uL; Basophil% 0.7 % (0-1); Eosinophil# 0.22 X10^3/uL; Eosinophils% 3.3 % (0-5); Hematocrit 34.8 % (37-47); Hemoglobin 11.4 g/dL (12.0-15.0); Lymphocyte # 1.02 X10^3/ul (0.83-4.51); Lymphocyte % 15.2 % (19-41); Mean Corp Hgb Conc 32.8 g/dL (32-36); Mean Corpuscular Hgb 29.9 pg (27.0-32.0); Mean Corpuscular Volume 91.3 fL (81-99); Mean Platelet Vol. 8.9 fl (6.2-12.0); Monocyte# 0.38 X10^3/uL; Monocyte% 5.7 % (0-10); NRBC Flagged by Analyzer 0 % (0-5); Neutrophil # 4.96 X10^3/uL (2.7-7.7); Neutrophil % 74.1 % (47-70); Platelet Count 226 K/mm3 (150-450); RBC Distribution Width CV 12.5 % (11.6-14.6); RBC Distribution Width SD 41.6 fl (35.1-43.9); Red Blood Count 3.81 M/mm3 (4.2-5.4); White Blood Count 6.7 K/mm3 (4.4-11.0)
[2024-06-09 17:09] LABS: ALB/GLOB Ratio 1.3 RATIO (0.9-2.4); AST(SGOT) 22 U/L (15-37); Alanine Aminotransfer ALT/SGPT 28 U/L (13-56); Albumin, Serum 4.1 g/dL (3.2-5.0); Alkaline Phosphatase 90 U/L (45-117); Anion Gap 7 (5-15); BUN 12 mg/dL (7-18); BUN/Creat Ratio 13.8 RATIO (10-20); Calcium,Total 9.4 mg/dL (8.5-10.1); Chloride 102 mmol/L (98-107); Cholesterol 190 mg/dL (200); Creatinine, Serum 0.87 mg/dL (0.55-1.02); EST Glomerular Filtration Rate 70 mL/min (>60); Est Glom Filt Rate - Afr Amer 85 mL/min (>60); Globulin 3.1 g/dL (2.2-4.2); Glucose 85 mg/dL (74-106); High Density Lipoprotein 92 mg/dL; Potassium 3.9 mmol/L (3.5-5.1); Protein, Total 7.2 g/dL (6.4-8.2); Sodium Level 134 mmol/L (136-145); Triglycerides 124 mg/dL; Very Low Density Lipoprotein 25 mg/dL (5-40)
== END | disposition home or self-care (01) ==
PROVIDERS: PCP Family Medicine Geriatric Medicine; Referring Provider Family Medicine Geriatric Medicine; Visit Provider Family Medicine Geriatric Medicine
DX: M25.512 Pain in left shoulder (principal); I10 Essential (primary) hypertension; E78.5 Hyperlipidemia, unspecified
CPT/HCPCS: 36415; 73030; 80053; 80061; 84443; 85025

== ENCOUNTER → 2024-07-14 | Outpatient (CLI) | payer MEDICARE, MEDICAID, SELFPAY ==
[2024-06-11 15:50] VITALS: BMI 24.3
--- NOTE | 2024-07-14 15:13 | BI_ITS ---
MAMMOGRAPHY - BILATERAL SCREENING 3-D TOMOSYNTHESIS REASON FOR EXAM: Female, 63 years old. SCREENING PERTINENT HISTORY: No significant family history. TECHNIQUE: 2-D mammograms and 3-D Tomosynthesis of the breast (s) were performed. CAD was performed. COMPARISON: 05/24/2022 FINDINGS: The breast composition is composed of scattered fibroglandular density. Scattered benign calcifications are seen. No dense spiculated masses or suspicious microcalcifications are identified. No architectural distortion is identified. There is no skin thickening or retraction. There has been no significant change since the prior study. BI/SCRN MAMM (CAD)W/ROSEMARY BILAT IMPRESSION: No mammographic signs of malignancy. Routine yearly mammograms recommended. ASSESSMENT CATEGORY: BIRADS Category 1: Negative. A letter regarding these results will be sent to the patient by the facility within 30 days. FOLLOW UP RECOMMENDATION: Yearly follow up mammogram recommended. (A) Approximately 10% of breast cancers are not detected by mammography. A normal mammogram should not delay biopsy of a clinically suspicious abnormality. Electronically Signed: Preet Vegrara MD at 15:55 EST ,
== END | disposition home or self-care (01) ==
LOC: OPBI 14:59
PROVIDERS: PCP Family Medicine Geriatric Medicine; Referring Provider Family Medicine Geriatric Medicine; Visit Provider Family Medicine Geriatric Medicine
DX: Z12.31 Encounter for screening mammogram for malignant neoplasm of breast (principal); M25.512 Pain in left shoulder
CPT/HCPCS: 77063; 77067

== ENCOUNTER → 2024-09-17 | Outpatient (CLI) | payer MEDICARE, MEDICAID, SELFPAY ==
[2024-06-11 15:50] VITALS: BMI 24.3
== END | disposition home or self-care (01) ==
LOC: SL 13:27
PROVIDERS: PCP Family Medicine Geriatric Medicine; Visit Provider Nurse Practitioner Family
DX: Z00.00 Encounter for general adult medical examination without abnormal findings (principal)

== ENCOUNTER → 2024-12-10 | Outpatient (CLI) | payer MEDICARE, MEDICAID, SELFPAY ==
[2024-06-11 15:50] VITALS: BMI 24.3
[2024-12-10 17:24] LABS: Absolute Lymphocyte Count 1.05 X10^3/uL (0.83-4.51); Absolute Neutrophil Count 2.8 X10^3/uL (2.0-7.7); Basophil# 0.08 X10^3/uL; Basophil% 1.6 % (0-1); Eosinophil# 0.53 X10^3/uL; Eosinophils% 10.9 % (0-5); Hematocrit 33.5 % (37-47); Hemoglobin 11.2 g/dL (12.0-15.0); Lymphocyte # 1.05 X10^3/ul (0.83-4.51); Lymphocyte % 21.5 % (19-41); Mean Corp Hgb Conc 33.4 g/dL (32-36); Mean Corpuscular Hgb 29.6 pg (27.0-32.0); Mean Corpuscular Volume 88.6 fL (81-99); Mean Platelet Vol. 9.4 fl (6.2-12.0); Monocyte# 0.36 X10^3/uL; Monocyte% 7.4 % (0-10); NRBC Flagged by Analyzer 0 % (0-5); Neutrophil # 2.82 X10^3/uL (2.7-7.7); Neutrophil % 57.8 % (47-70); Platelet Count 306 K/mm3 (150-450); RBC Distribution Width CV 13.1 % (11.6-14.6); RBC Distribution Width SD 42.6 fl (35.1-43.9); Red Blood Count 3.78 M/mm3 (4.2-5.4); White Blood Count 4.9 K/mm3 (4.4-11.0)
[2024-12-10 18:08] LABS: AST(SGOT) 22 U/L (<=31); Alanine Aminotransfer ALT/SGPT 24 U/L (<=34); Albumin, Serum 4.5 g/dL (3.4-4.8); Alkaline Phosphatase 101 U/L (35-104); Anion Gap 13 (5-15); BUN 10 mg/dL (4-19); BUN/Creat Ratio 13.1 RATIO (10-20); Calcium,Total 9.6 mg/dL (7.6-11.0); Carbon Dioxide 20.1 mmol/L (21.0-32.0); Chloride 99 mmol/L (98-108); Cholesterol 186 mg/dL (<=200); Creatinine, Serum 0.76 mg/dL (0.70-1.20); EST Glomerular Filtration Rate 88 (>60); Globulin 2.2 g/dL (2.2-4.2); Glucose 101 mg/dL (70-99); High Density Lipoprotein 84 mg/dL; Low Density Lipoprotein Calc. 61 mg/dL; Potassium 4.4 mmol/L (3.3-5.1); Protein, Total 6.7 g/dL (5.9-8.4); Sodium Level 132 mmol/L (133-145); Total Bilirubin 0.21 mg/dL (0.00-1.30); Triglycerides 206 mg/dL; Very Low Density Lipoprotein 41 mg/dL (5-40); cholesterol:hdl ratio screen 2.22
== END | disposition home or self-care (01) ==
LOC: LAB 15:42
PROVIDERS: PCP Family Medicine Geriatric Medicine; Referring Provider Family Medicine Geriatric Medicine; Visit Provider Family Medicine Geriatric Medicine
DX: I10 Essential (primary) hypertension (principal); E78.5 Hyperlipidemia, unspecified
CPT/HCPCS: 36415; 80053; 80061; 84443; 85025

== ENCOUNTER 2025-01-04 07:36 | Day surgery (SDC) | payer MEDICARE, MEDICAID, SELFPAY ==
[2024-06-11 15:50] VITALS: BMI 24.3
--- NOTE | 2024-12-31 12:17 | PAT.ANESEVAL ---
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 When Was Last Pacemaker Check QUESTION #4 FULL TEXT: You/Your Family Experience fever (hyperthermia) with Anesthesia Last Oral Intake Last Oral intake: Last Oral Intake NPO since Meds taken in AM with sips of water? Meds patient instructed to take am of surgery PONV PONV - channel sales manager: PONV - channel sales manager Female Yes 12/31/24 11:06 HX of Motion Sickness No 12/31/24 11:06 HX of N/V After Surgery No 12/31/24 11:06 Non-Smoker Yes 12/31/24 11:06 Duration of Surgery greater No 12/31/24 11:06 than 60 minutes Number of Risk Factors 2 12/31/24 11:06 PONV Score Moderate Risk 12/31/24 11:06 Height & Weight Height & Weight: Anesthesia: Height & Weight Height 5 ft 9 in 12/01/24 13:57 Respiratory Assessment Respiratory Assessment - channel sales manager: Respiratory Tract Infection Hx - channel sales manager Hx Respiratory Tract Infection No 12/31/24 11:06 STOP Sleep Apnea STOP Sleep Apnea - channel sales manager: STOP Sleep Apnea - channel sales manager Hx Hypertension Yes 12/31/24 11:06 Hx Sleep Apnea Yes 12/31/24 11:06 CPAP No 12/31/24 11:06 BIPAP Yes 12/31/24 11:06 Do you snore loudly (louder than talking or can be heard Do you often feel tired/ fatigued/ sleepy during daytime? Has anyone observed you stop breathing during sleep? STOP Results Positive 12/31/24 11:06 QUESTION #5 FULL TEXT : Do you snore loudly (louder than talking or can be heard through closed doors)? 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 Specify any problems Hx of Preganancy in last 3 No 12/31/24 11:06 Months Nurse Filling Out Transfusion [facility] 12/31/24 11:06 & Questions: Date: 12/31/24 12/31/24 11:06 Time: 11:16 12/31/24 11:06 Patient unable to answer at this time (ie. confused, unrespo /Reproduction History /Reproductive History - channel sales manager: /Reproductive Hx- channel sales manager Hx Now No 12/31/24 11:06 Gestational Age (in weeks): EDC: Hx Hx Para Hx Section SAB No 12/31/24 11:06 PFSH Medical History Bruising Walker as ambulation aid Dietary restriction Gastric reflux Sleep apnea Shortness of breath on exertion History of echocardiogram Primary osteoarthritis, left shoulder Left shoulder pain Wears glasses Bipolar disorder Anxiety Alcohol use Non-smoker BiPAP (biphasic positive airway pressure) dependence Carpal tunnel syndrome, bilateral Panic disorder Psychiatric care CPAP/BiPAP (continuous or biphasic positive airway pressure) dependent Bipolar disorder Vision problems High cholesterol High blood pressure History of emotional problems Bone fracture Seasonal allergies Home Medications ?Medication ?Instructions ?Recorded ?Last Taken ?Type lamotrigine 200 mg tablet 200 mg PO QHS DEPRESSION 02/20/14 Unknown History loratadine 10 mg tablet 10 mg PO QHS ALLERGY 02/20/14 Unknown History quetiapine 200 mg tablet 200 mg PO QHS SLEEP 02/20/14 Unknown History atorvastatin 40 mg tablet 40 mg PO QHS CHOLESTEROL 06/30/20 Unknown History cholecalciferol (vitamin D3) 25 1,000 unit PO DAILY SUPPLEMENT 06/30/20 Unknown History mcg (1,000 unit) tablet sertraline 100 mg tablet 100 mg PO DAILY DEPRESSION 10/20/20 07/03/23 History polyethylene glycol 3350 17 gram 17 g PO DAILY SUPPLEMENT 07/10/22 Unknown History oral powder packet (Miralax) baclofen 10 mg tablet 10 mg PO QHS PAIN 06/18/23 Unknown History pantoprazole 40 mg tablet,delayed 40 mg PO DAILY GERD 06/18/23 07/03/23 History release amlodipine 10 mg tablet 10 mg PO DAILY #0 tabs 07/23/23 Unknown Rx losartan 100 mg tablet 100 mg PO QHS #0 tabs 07/23/23 Unknown Rx potassium chloride 10 mEq 20 meq (2 x 10 mEq) PO BIDCM #0 07/23/23 Unknown Rx tablet,extended release(part/cryst) tabs alprazolam 0.5 mg tablet 0.5 mg PO DAILY PRN 12/31/24 Unknown History Anxiety/Restlessness/Sleep naproxen 250 mg tablet 440 mg PO DAILY Pain Score 4-5 12/31/24 Unknown History sennosides 8.6 mg-docusate sodium 1 tab-cap PO BID 12/31/24 Unknown History 50 mg tablet (Stool Softener-Stimulant Laxative) Allergy/AdvReac Type Severity Reaction Status Date / Time chamomile flower Allergy Upset Verified 12/31/24 10:57 Stomach Sulfa (Sulfonamide Allergy Hives Verified 12/31/24 10:57 Antibiotics) labetalol AdvReac Severe Angioedema Verified 12/31/24 10:57 corn AdvReac Shortness Verified 12/31/24 10:57 of breath wheat AdvReac Shortness Verified 12/31/24 10:57 of breath Family History Mother Hypertension Father Hypertension Pancreatic cancer Shingles Surgical History History of cervical discectomy History of carpal tunnel surgery of right wrist History of carpal tunnel surgery of left wrist History of colonoscopy History of hysterectomy Social History household members: none current occupational status: disabled Smoking Status: Never smoker alcohol intake: current alcohol intake frequency: a few times a week Alcohol type: wine substance use type: does not use Prior Cardiac Testing/Procedures Prior Cardiac Testing/Procedures: Echocardiogram (The left ventricular ejection fraction is 60 %. No regional wall motion abnormalities noted.) Addt'l Information Additional Findings: >4 METS no further testing Recommendation Anesthesia Recommendation Anesthesia recommendation: OPTIMIZED for anesthesia
[2025-01-04] VITALS (8 sets, daily range): BP systolic 118–135; BP diastolic 65–113; PULSE 67–86; RESP 16; TEMP 36.1–36.4; O2SAT 98–100; BMI 26.6
--- NOTE | 2025-01-04 07:41 | H&P.OPEN ---
HPI - General General Date of Service: 01/04/25 HPI Narrative PREMA CID, is a 64 F who presents for screening colonoscopy. Patient's last colonoscopy was 12+ years ago at [facility]. Was normal per patient. Patient has bowel movements daily denies any blood. Patient denies any chronic abdominal pain/nausea/vomiting/reflux. Patient denies any family history of colon cancer. [facility] Medical History Bruising Walker as ambulation aid Dietary restriction Gastric reflux Sleep apnea Shortness of breath on exertion History of echocardiogram Primary osteoarthritis, left shoulder Left shoulder pain Wears glasses Bipolar disorder Anxiety Alcohol use Non-smoker BiPAP (biphasic positive airway pressure) dependence Carpal tunnel syndrome, bilateral Panic disorder Psychiatric care CPAP/BiPAP (continuous or biphasic positive airway pressure) dependent Bipolar disorder Vision problems High cholesterol High blood pressure History of emotional problems Bone fracture Seasonal allergies Home Medications ?Medication ?Instructions ?Recorded ?Last Taken ?Type lamotrigine 200 mg tablet 200 mg PO QHS DEPRESSION 02/20/14 Unknown History loratadine 10 mg tablet 10 mg PO QHS ALLERGY 02/20/14 Unknown History quetiapine 200 mg tablet 200 mg PO QHS SLEEP 02/20/14 Unknown History atorvastatin 40 mg tablet 40 mg PO QHS CHOLESTEROL 06/30/20 Unknown History cholecalciferol (vitamin D3) 25 1,000 unit PO DAILY SUPPLEMENT 06/30/20 Unknown History mcg (1,000 unit) tablet sertraline 100 mg tablet 100 mg PO DAILY DEPRESSION 10/20/20 07/03/23 History polyethylene glycol 3350 17 gram 17 g PO DAILY SUPPLEMENT 07/10/22 Unknown History oral powder packet (Miralax) baclofen 10 mg tablet 10 mg PO QHS PAIN 06/18/23 Unknown History pantoprazole 40 mg tablet,delayed 40 mg PO DAILY GERD 06/18/23 01/04/25 04:45 History release amlodipine 10 mg tablet 10 mg PO DAILY #0 tabs 07/23/23 01/04/25 04:45 Rx losartan 100 mg tablet 100 mg PO QHS #0 tabs 07/23/23 Unknown Rx potassium chloride 10 mEq 20 meq (2 x 10 mEq) PO BIDCM #0 07/23/23 Unknown Rx tablet,extended release(part/cryst) tabs alprazolam 0.5 mg tablet 0.5 mg PO DAILY PRN 12/31/24 01/04/25 04:45 History Anxiety/Restlessness/Sleep naproxen 250 mg tablet 440 mg PO DAILY Pain Score 4-5 12/31/24 Unknown History sennosides 8.6 mg-docusate sodium 1 tab-cap PO BID 12/31/24 Unknown History 50 mg tablet (Stool Softener-Stimulant Laxative) Allergy/AdvReac Type Severity Reaction Status Date / Time chamomile flower Allergy Upset Verified 01/04/25 07:57 Stomach Sulfa (Sulfonamide Allergy Hives Verified 01/04/25 07:57 Antibiotics) labetalol AdvReac Severe Angioedema Verified 01/04/25 07:57 corn AdvReac Shortness Verified 01/04/25 07:57 of breath wheat AdvReac Shortness Verified 01/04/25 07:57 of breath Family History Mother Hypertension Father Hypertension Pancreatic cancer Shingles Surgical History History of cervical discectomy History of carpal tunnel surgery of right wrist History of carpal tunnel surgery of left wrist History of colonoscopy History of hysterectomy Social History household members: none current occupational status: disabled Smoking Status: Never smoker alcohol intake: current alcohol intake frequency: a few times a week Alcohol type: wine substance use type: does not use Past Medical/Surgical History Planned Operation Planned Operative Procedure(s): COLONOSCOPY Previous Hospitalizations/Surgeries HX Hospitalizations: No Any Problems With Anesthesia: No You/Your Family Experience Fever (Hyperthermia) With Anes: No Cholinesterase deficiency: No Cardiovascular Hx of Irregular Heartbeat and/or Afib: No Hx Heart Attack: No Hx Congestive Heart Failure: No Hx Rheumatic Fever: No Hx Hypertension: Yes Hx Internal Defibrillator: No Hx Pacemaker: No Hx Pain in Legs when Walking/Leg Cramps: No Respiratory HX of Shortness of Breath: No Hx Chronic Obstructive Pulmonary Disease (COPD): No Hx Asthma: No Hx Emphysema: No Hx Sleep Apnea: Yes CPAP: No BIPAP: Yes Hx Respiratory Tract Infection/Cold (presently): No Result (for STOP score): Positive Smoking Status: Never smoker Gastrointestinal Hx Gastrointestinal Bleed: No Hx Ulcer: No Neurological Hx Seizures: No Hx Multiple Sclerosis: No Hx Parkinson's Disease: No Hx Head/Neck Injury: No Hx Headaches: No Hx Back Injury/Pain: No Does patient have nerve stimulator: No Blood Disorder Hx Hepatitis: No Hx Anemia: No Reproduction : No Is Patient Lactating: No Genitourinary Hx Renal Disease: No Hx Dialysis: No Musculoskeletal Hx Arthritis: No Hx Gout: No Endocrine Hx Diabetes: No Thyroid Disease: No Psycho/Social Hx Anxiety: Yes Hx Depression: Yes Hx Dementia: No Miscellaneous Hx Cancer: No Recent Exposure to Contagious Disease: No Allergies chamomile flower Allergy (Verified 01/04/25 07:57) Upset Stomach HERBAL TEA-HEADACHES Sulfa (Sulfonamide Antibiotics) Allergy (Verified 01/04/25 07:57) Hives labetalol Adverse Reaction (Severe, Verified 01/04/25 07:57) Angioedema corn Adverse Reaction (Verified 01/04/25 07:57) Shortness of breath wheat Adverse Reaction (Verified 01/04/25 07:57) Shortness of breath Discharge Is Pt Admitted From a Snf, or a Senior Care: No Who Could Help: BROTHER After D/C, Where Do you Plan to Go: Return Home From the [facility] History Number of Risk Factors: 2 Physical Exam Const alert, oriented x3 and no apparent distress HEENT normocephalic and head/scalp atraumatic Resp normal respiratory effort Cardio regular rate GI soft to palpation and non-tender; Negative for non-distended Palpation: Negative for guarding Extremity no clubbing, cyanosis or edema Skin no rashes or lesions noted Neuro CN's II-XII intact bilaterally Psych mental status grossly normal Assessment & Plan Assessment/Plan (1) Encounter for screening for malignant neoplasm of colon: Surgery Risks - Colonoscopy I discussed with the patient the risks of the procedure: Yes Risks Include but are not Limited To: Risks include but are not limited to: Bleeding, perforation requiring further surgery, inability to complete colonoscopy requiring barium enema.
[2025-01-04] MEDS: Lactated Ringers 1,000 ML 15 ML IV (08:27)
--- NOTE | 2025-01-04 08:52 | PCM.PRE.AN2 ---
ASA Classification* ASA Classification ASA Classification: 2 Assessment & Plan Anesthesia* Anesthesia Assessment Anesthesia Assessment: Discussed sedation and/or anesthesia options, risks, benefits, and alternatives with patient/parents/legal guardian/POA. Questions invited. The patient/parents/legal guardian/POA seems to understand and agrees to proceed with anesthesia plan. Reviewed the physical assessment, medical history, allergy history and patient home medications list prior to surgery/procedure/anesthetic and documented any changes. Performed airway and anesthesia risk assessments. Anesthesia Type Anesthesia Type: MAC History Source History Obtained from:: Patient and Chart Anesthesia Focused Assessment* Temperature: 97.6 F Pulse Rate: 86 Blood Pressure: 118/65 Respiratory Rate: 16 Pulse Ox: 99 Oxygen Delivery Method: Room Air Airway Assessment Mouth opens: >3 cm Mallampati Score: II Teeth Condition: Intact Neck Range of motion (ROM): Full ROM Focused Labs Anesthesia Preop lab: CBC WBC 4.9 K/mm3 (4.4-11.0) 12/10/24 15:48 12/10/24 RBC 3.78 M/mm3 (4.2-5.4) L 12/10/24 15:48 12/10/24 Hgb 11.2 g/dL (12.0-15.0) L 12/10/24 15:48 12/10/24 Hct 33.5 % (37-47) L 12/10/24 15:48 12/10/24 Plt Count 306 K/mm3 (150-450) 12/10/24 15:48 12/10/24 CHEMISTRY Potassium 4.4 mmol/L (3.3-5.1) 12/10/24 15:48 12/10/24 Sodium 132 mmol/L (133-145) L 12/10/24 15:48 12/10/24 Magnesium 1.9 mg/dL (1.6-2.6) 07/04/23 02:49 07/04/23 Phosphorus 3.1 mg/dL (2.5-4.9) 07/04/23 02:49 07/04/23 BUN 10 mg/dL (4-19) 12/10/24 15:48 12/10/24 Creatinine 0.76 mg/dL (0.70-1.20) 12/10/24 15:48 12/10/24 Glucose 101 mg/dL (70-99) H 12/10/24 15:48 12/10/24 POC Glucose 128 mg/dL (74-106) H 07/04/23 18:56 07/04/23 TSH 2.600 uIU/mL (0.300-4.200) 12/10/24 15:48 12/10/24 COAG PT 12.6 SECONDS (11.7-14.9) 06/24/23 14:53 06/24/23 Pre-Assessment Diagnosis/Proposed Procedure Planned Operative Procedure(s): COLONOSCOPY Anesthesia History Anesthesia History - hadoop consultant: Anesthesia History - hadoop consultant Hx Hospitalization No 01/04/25 07:42 Any Problems With Anesthesia No 01/04/25 07:42 Cholinesterase deficiency No 01/04/25 07:42 You/Your Family Experience No 01/04/25 07:42 fever (hyperthermia) with Relationship Recent Exposure to Contagious No 01/04/25 07:59 Disease Does patient have nerve No 01/04/25 07:42 stimulator Patient instructed to have device shut off --Does patient have Pacemaker No 01/04/25 07:59 or ICD? When Was Last Pacemaker Check QUESTION #4 FULL TEXT: You/Your Family Experience fever (hyperthermia) with Anesthesia Any additional information?: No Last Oral Intake Last Oral intake: Last Oral Intake NPO since 04:45 01/04/25 07:59 Meds taken in AM with sips of water? Meds patient instructed to take am of surgery Any additional information?: No PONV PONV - hadoop consultant: PONV - hadoop consultant Female Yes 12/31/24 11:06 HX of Motion Sickness No 12/31/24 11:06 HX of N/V After Surgery No 12/31/24 11:06 Non-Smoker Yes 12/31/24 11:06 Duration of Surgery greater No 12/31/24 11:06 than 60 minutes Number of Risk Factors 2 12/31/24 11:06 PONV Score Moderate Risk 12/31/24 11:06 Any additional information?: No Height & Weight Height & Weight: Anesthesia: Height & Weight Height 5 ft 9 in 01/04/25 07:59 Weight: 82 kg 01/04/25 07:59 Body Mass Index (BMI) 26.6 01/04/25 07:59 Respiratory Assessment Respiratory Assessment - hadoop consultant: Respiratory Tract Infection Hx - hadoop consultant Hx Respiratory Tract Infection No 01/04/25 07:42 Any additional information?: No STOP Sleep Apnea STOP Sleep Apnea - hadoop consultant: STOP Sleep Apnea - hadoop consultant Hx Hypertension Yes 01/04/25 07:42 Hx Sleep Apnea Yes 01/04/25 07:42 CPAP No 01/04/25 07:42 BIPAP Yes 01/04/25 07:42 Do you snore loudly (louder than talking or can be heard Do you often feel tired/ fatigued/ sleepy during daytime? Has anyone observed you stop breathing during sleep? STOP Results Positive 01/04/25 07:42 QUESTION #5 FULL TEXT : Do you snore loudly (louder than talking or can be heard through closed doors)? 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 Specify any problems Hx of Preganancy in last 3 No 12/31/24 11:06 Months Nurse Filling Out Transfusion [facility] 12/31/24 11:06 & Questions: Date: 12/31/24 12/31/24 11:06 Time: 11:16 12/31/24 11:06 Patient unable to answer at this time (ie. confused, unrespo Any additional information?: No /Reproduction History /Reproductive History - hadoop consultant: /Reproductive Hx- hadoop consultant Hx Now No 01/04/25 07:42 Gestational Age (in weeks): EDC: Hx Hx Para Hx Section SAB No 12/31/24 11:06 Any additional information?: No Active Medications Active Medications: Current Medications Generic Name Dose Route Start Last Admin Trade Name Cheryl PRN Reason Stop Dose Admin Lactated Ringer's 1,000 mls @ 15 mls/hr 01/04/25 07:45 01/04/25 08:27 IV 15 mls/hr .Q48H EVA Administration PFSH Medical History Bruising Walker as ambulation aid Dietary restriction Gastric reflux Sleep apnea Shortness of breath on exertion History of echocardiogram Primary osteoarthritis, left shoulder Left shoulder pain Wears glasses Bipolar disorder Anxiety Alcohol use Non-smoker BiPAP (biphasic positive airway pressure) dependence Carpal tunnel syndrome, bilateral Panic disorder Psychiatric care CPAP/BiPAP (continuous or biphasic positive airway pressure) dependent Bipolar disorder Vision problems High cholesterol High blood pressure History of emotional problems Bone fracture Seasonal allergies Home Medications ?Medication ?Instructions ?Recorded ?Last Taken ?Type lamotrigine 200 mg tablet 200 mg PO QHS DEPRESSION 02/20/14 Unknown History loratadine 10 mg tablet 10 mg PO QHS ALLERGY 02/20/14 Unknown History quetiapine 200 mg tablet 200 mg PO QHS SLEEP 02/20/14 Unknown History atorvastatin 40 mg tablet 40 mg PO QHS CHOLESTEROL 06/30/20 Unknown History cholecalciferol (vitamin D3) 25 1,000 unit PO DAILY SUPPLEMENT 06/30/20 Unknown History mcg (1,000 unit) tablet sertraline 100 mg tablet 100 mg PO DAILY DEPRESSION 10/20/20 07/03/23 History polyethylene glycol 3350 17 gram 17 g PO DAILY SUPPLEMENT 07/10/22 Unknown History oral powder packet (Miralax) baclofen 10 mg tablet 10 mg PO QHS PAIN 06/18/23 Unknown History pantoprazole 40 mg tablet,delayed 40 mg PO DAILY GERD 06/18/23 01/04/25 04:45 History release amlodipine 10 mg tablet 10 mg PO DAILY #0 tabs 07/23/23 01/04/25 04:45 Rx losartan 100 mg tablet 100 mg PO QHS #0 tabs 07/23/23 Unknown Rx potassium chloride 10 mEq 20 meq (2 x 10 mEq) PO BIDCM #0 07/23/23 Unknown Rx tablet,extended release(part/cryst) tabs alprazolam 0.5 mg tablet 0.5 mg PO DAILY PRN 12/31/24 01/04/25 04:45 History Anxiety/Restlessness/Sleep naproxen 250 mg tablet 440 mg PO DAILY Pain Score 4-5 12/31/24 Unknown History sennosides 8.6 mg-docusate sodium 1 tab-cap PO BID 12/31/24 Unknown History 50 mg tablet (Stool Softener-Stimulant Laxative) Allergy/AdvReac Type Severity Reaction Status Date / Time chamomile flower Allergy Upset Verified 01/04/25 07:57 Stomach Sulfa (Sulfonamide Allergy Hives Verified 01/04/25 07:57 Antibiotics) labetalol AdvReac Severe Angioedema Verified 01/04/25 07:57 corn AdvReac Shortness Verified 01/04/25 07:57 of breath wheat AdvReac Shortness Verified 01/04/25 07:57 of breath Family History Mother Hypertension Father Hypertension Pancreatic cancer Shingles Surgical History History of cervical discectomy History of carpal tunnel surgery of right wrist History of carpal tunnel surgery of left wrist History of colonoscopy History of hysterectomy Social History household members: none current occupational status: disabled Smoking Status: Never smoker alcohol intake: current alcohol intake frequency: a few times a week Alcohol type: wine substance use type: does not use Prior Cardiac Testing/Procedures Prior Cardiac Testing/Procedures: Echocardiogram (Normal left ventricle. Left ventricular systolic function is normal. No regional wall motion abnormalities noted. The left ventricular ejection fraction is 60 %. 02/03/24) Addt'l Information Additional Findings: EKG Normal sinus rhythm GERD, took pantoprazole today 01/04/25 per patient works very well for GERD symptoms. Review of Systems (Anesthesia) ROS Narrative System reviewed and no additional complaints, except as documented.
--- NOTE | 2025-01-04 11:05 | OP.COLON_ITS ---
Patient Name: Dena Holly Procedure Date: 01/04/2025 10:33 AM Date of : 1960 Age: 64 Procedure: Colonoscopy Indications: Screening for colorectal malignant neoplasm Providers: Amee Esteban MD Referring MD: Tristan Mane MD Medicines: Monitored Anesthesia Care Patient Profile: This is a 64 year old female. Last Colonoscopy: more than 10 years ago. Complications: No immediate complications. Procedure: Pre-Anesthesia Assessment: - Prior to the procedure, a History and Physical was performed, and patient medications and allergies were reviewed. The patient's tolerance of previous anesthesia was also reviewed. The risks and benefits of the procedure and the sedation options and risks were discussed with the patient. All questions were answered, and informed consent was obtained. Prior Anticoagulants: The patient has taken no anticoagulant or antiplatelet agents. ASA Grade Assessment: Per anesthesia. After reviewing the risks and benefits, the patient was deemed in satisfactory condition to undergo the procedure. After I obtained informed consent, the scope was passed under direct vision. Throughout the procedure, the patient's blood pressure, pulse, and oxygen saturations were monitored continuously. The Colonoscope was introduced through the anus and advanced to the cecum, identified by the appendiceal orifice, ileocecal valve and palpation. The colonoscopy was performed without difficulty. The patient tolerated the procedure well. The quality of the bowel preparation was good. Scope In: 10:42:09 AM Scope Withdrawal Time 0 hours 8 minutes 0 seconds Scope Out: 11:01:25 AM Total Procedure Duration Time 0 hours 19 minutes 16 seconds Findings: The perianal and digital rectal examinations were normal. Multiple small-mouthed diverticula were found in the sigmoid colon, descending colon, transverse colon and ascending colon. The exam was otherwise without abnormality on direct and retroflexion views. Impression: - Diverticulosis in the sigmoid colon, in the descending colon, in the transverse colon and in the ascending colon. - The examination was otherwise normal on direct and retroflexion views. - No specimens collected. Recommendation: - Discharge patient to home. - Resume previous diet. - Continue present medications. - Repeat colonoscopy in 10 years for screening purposes. Procedure Code(s): --- Professional --- G0121, PT, Colorectal cancer screening; colonoscopy on individual not meeting criteria for high risk Diagnosis Code(s): --- Professional --- Z12.11, Encounter for screening for malignant neoplasm of colon K57.30, Diverticulosis of large intestine without perforation or abscess without bleeding CPT copyright 2021 [employer]. All rights reserved. The codes documented in this report are preliminary and upon claims correspondence clerk review may be revised to meet current compliance requirements. MD Amee Harvey MD 01/04/2025 11:05:16 AM This report has been signed electronically. Number of Addenda: 0 Note Initiated On: 01/04/2025 10:33 AM
--- NOTE | 2025-01-04 11:05 | OP.CCLET_ITS ---
01/04/2025 Tristan Mane MD [address] [place] [address] Re : Colonoscopy procedure for Dena Holly Dear Dr. Mane This procedure was performed on Saturday, January 04, 2025. My impressions and recommendations are as follows: Impressions : - Diverticulosis in the sigmoid colon, in the descending colon, in the transverse colon and in the ascending colon. - The examination was otherwise normal on direct and retroflexion views. - No specimens collected. Recommendations : - Discharge patient to home. - Resume previous diet. - Continue present medications. - Repeat colonoscopy in 10 years for screening purposes. My findings are described in the full procedure note, which is enclosed. If I can be of further assistance, please feel free to contact me at Doctor phone number(s): , Work: . Sincerely, MD Amee Harvey MD 01/04/2025 11:05:16 AM This report has been signed electronically.
--- NOTE | 2025-01-04 11:08 | PCM.POST.ANE ---
Anesthesia: Postop Eval I Current Vital Signs Temperature: 97.2 F Pulse Rate: 79 Blood Pressure: 124/113 Respiratory Rate: 16 Pulse Ox: 98 Oxygen Delivery Method: Room Air Assessment Airway patent: Yes Spontaneous unlabored respirations: Yes Mental status: Awake nausea: No Vomiting: No Anesthesia Complication: No Fluid Hydration Crystalloid volume administer (ml): 500 Total IV fluid infused: 500 Progress Note Post-operative progress note: patient laying on cuff Anesthesia document: Postop Eval 1 completed: Yes
--- NOTE | 2025-01-04 11:49 | POSTOPAN2_ITS ---
Anesthesia Postop Eval I Sum Postop Eval Completion status Anesthesia document: Postop Eval 1 completed: Yes Anesthesia Postop Eval I Summary Anesthesia Postop Eval I Summary: Anesthesia Postop Eval I: Assessment Summary Airway patent Yes 01/04/25 11:09 [email or web address] Spontaneous unlabored Yes 01/04/25 11:09 [email or web address] respirations Mental status Awake 01/04/25 11:09 [email or web address] nausea No 01/04/25 11:09 [email or web address] Vomiting No 01/04/25 11:09 [email or web address] Anesthesia Postop Eval I: Fluid Summary Crystalloid volume administer 500 01/04/25 11:09 [email or web address] (ml) Colloids volume administered ( ml) Blood Product volume administered (ml) Total IV fluid infused 500 01/04/25 11:09 [email or web address] Anesthesia Postop Eval I: Summary Notes Anesthesia Complication No 01/04/25 11:09 [email or web address] Anesthesia Complication Comment: Post-operative progress note patient laying on 01/04/25 11:09 [email or web address] cuff Anesthesia: Postop Eval II Evaluation Mental status: Awake Pain Level: 0 nausea: No Vomiting: No
--- NOTE | 2025-01-04 11:49 | PCM.POSTANE2 ---
Anesthesia Postop Eval I Sum Postop Eval Completion status Anesthesia document: Postop Eval 1 completed: Yes Anesthesia Postop Eval I Summary Anesthesia Postop Eval I Summary: Anesthesia Postop Eval I: Assessment Summary Airway patent Yes 01/04/25 11:09 [email or web address] Spontaneous unlabored Yes 01/04/25 11:09 [email or web address] respirations Mental status Awake 01/04/25 11:09 [email or web address] nausea No 01/04/25 11:09 TERADATA [email or web address] Vomiting No 01/04/25 11:09 TERADATA [email or web address] Anesthesia Postop Eval I: Fluid Summary Crystalloid volume administer 500 01/04/25 11:09 TERADATA [email or web address] (ml) Colloids volume administered ( ml) Blood Product volume administered (ml) Total IV fluid infused 500 01/04/25 11:09 TERADATA [email or web address] Anesthesia Postop Eval I: Summary Notes Anesthesia Complication No 01/04/25 11:09 TERADATA [email or web address] Anesthesia Complication Comment: Post-operative progress note patient laying on 01/04/25 11:09 TERADATA [email or web address] cuff Anesthesia: Postop Eval II Evaluation Mental status: Awake Pain Level: 0 nausea: No Vomiting: No
== END 2025-01-04 11:56 | disposition home or self-care (01) ==
LOC: EN 07:36 → AC 07:37
PROVIDERS: PCP Family Medicine Geriatric Medicine; Referring Provider Family Medicine Geriatric Medicine; Visit Provider Surgery
PROC: 0DJD8ZZ Inspection of Lower Intestinal Tract, Via Natural or Artificial Opening Endoscopic (ICD-10-PCS; CPT 45378; principal; 2025-01-04 08:55)
DX: Z12.11 Encounter for screening for malignant neoplasm of colon (principal); I10 Essential (primary) hypertension; K57.30 Diverticulosis of large intestine without perforation or abscess without bleeding; E78.00 Pure hypercholesterolemia, unspecified; K21.9 Gastro-esophageal reflux disease without esophagitis; Z79.899 Other long term (current) drug therapy
CPT/HCPCS: G0121